=== PATIENT | female | born 1950 | race Caucasian/White ===

== ENCOUNTER 2016-06-21 19:04 | Emergency (ER) | payer MEDICARE, OTHER ==
[~2016-06-21] VITALS: Ht 160 cm; Wt 60.0 kg
[~2016-06-21 19:04] MED LIST: ALPRAZOLAM0.5 M2 PO; CELEXA20 M1 PO; CITALOPRAM40 MG PO; CYMBALTA30 MG PO; FIORICET PO; FLEXERIL PO; INDERAL LA120 MG PO; KEPPRA XR500 MG PO; LEVETIRACETAM500 MG PO; NAPROSYN500 MG PO; NORCO1 TA1 PO; PENICILLN VK500 MG PO; PERCOCET 5/325M1 TAB PO; PRAZOSIN HCL2 M1 PO; PRILOSEC20 MG/CAP PO; PROPRANOLOL HCL80 M1 PO; RESTORIL15 MG PO; TEMAZEPAM30 MG PO; ULTRAM50 M1 PO; VENLAFAXINE HCL75 M1 PO; ZOFRAN4 MG/TAB PO
[2016-06-21 20:34] LABS: URINE BILIRUBIN - DIPSTICK NEGATIVE (NEGATIVE); URINE BLOOD DIPSTICK NEGATIVE (NEGATIVE); URINE CLARITY CLEAR; URINE COLOR YELLOW; URINE GLUCOSE - DIPSTICK NEGATIVE (NEGATIVE); URINE KETONE NEGATIVE (NEGATIVE); URINE LEUK ESTERASE NEGATIVE (NEGATIVE); URINE NITRITE - DIPSTICK NEGATIVE (Negative); URINE PH 6.5 (4.5-8.0); URINE PROTEIN - DIPSTICK NEGATIVE (NEG-TRACE); URINE UROBILINOGEN - DIPSTICK 0.2 E.U./dL (0.2)
[2016-06-21 20:51] LABS: INFLUENZA A NONE DETECTED (NONE DETECT); INFLUENZA B NONE DETECTED (NONE DETECT)
[2016-06-21] MEDS ORDERED: FIORICET PO (20:53)
[2016-06-21 21:04] VITALS: BP 130/87
== END 2016-06-21 21:28 | disposition home or self-care (01) ==
LOC: ED 19:04
PROVIDERS: Emergency Medicine
DX: G43.909 Migraine, unspecified, not intractable, without status migrainosus (principal); B34.9 Viral infection, unspecified; R50.9 Fever, unspecified; R11.0 Nausea

== ENCOUNTER 2016-07-07 08:52 | Emergency (ER) | payer MEDICARE, OTHER ==
[~2016-07-07] VITALS: Ht 160 cm; Wt 58.6 kg
[~2016-07-07 08:52] MED LIST changes: -PRILOSEC20 MG/CAP PO; +PRILOSEC40 MG PO
[2016-07-07] MEDS ORDERED: TRAMADOL HCL50 MG PO (09:06)
[2016-07-07] MEDS ORDERED: FLEXERIL5 MG PO (09:06)
[2016-07-07] MEDS ORDERED: PERCOCET 5/325M1 TAB PO (09:31)
[2016-07-07] MEDS ORDERED: PREDNISONE10 MG PO (09:31)
[2016-07-07 09:45] VITALS: BP 147/75
== END 2016-07-07 10:19 | disposition home or self-care (01) ==
LOC: ED 08:52
DX: M54.42 Lumbago with sciatica, left side (principal)

== ENCOUNTER 2016-07-20 08:10 | Emergency (ER) | payer MEDICARE, OTHER ==
[~2016-07-20] VITALS: Ht 160 cm; Wt 59.1 kg
[~2016-07-20 08:10] MED LIST changes: +FLEXERIL5 MG PO; +PREDNISONE10 MG PO; +PRILOSEC20 MG/CAP PO; -PRILOSEC40 MG PO; +TRAMADOL HCL50 MG PO
[2016-07-20] MEDS ORDERED: ZOFRAN ODT4 MG PO (09:01)
[2016-07-20 09:12] VITALS: BP 147/104
[2016-07-21] MEDS ORDERED: PERCOCET 5/325M1 TAB PO (09:18)
== END 2016-07-20 09:25 | disposition home or self-care (01) ==
LOC: ED 08:10
DX: G43.909 Migraine, unspecified, not intractable, without status migrainosus (principal); R11.0 Nausea

== ENCOUNTER 2016-07-21 08:41 | Emergency (ER) | payer MEDICARE, OTHER ==
[~2016-07-21] VITALS: Ht 160 cm; Wt 59.1 kg
[~2016-07-21 08:41] MED LIST changes: +ZOFRAN ODT4 MG PO
[2016-07-21] MEDS ORDERED: PERCOCET 5/325M1 TAB PO (09:18)
[2016-07-21 09:45] VITALS: BP 118/66
== END 2016-07-21 09:45 | disposition home or self-care (01) ==
LOC: ED 08:41
DX: G40.909 Epilepsy, unspecified, not intractable, without status epilepticus (principal); K21.9 Gastro-esophageal reflux disease without esophagitis; G43.909 Migraine, unspecified, not intractable, without status migrainosus

== ENCOUNTER 2016-08-04 16:02 | Emergency (ER) | payer MEDICARE, OTHER ==
[~2016-08-04] VITALS: Ht 160 cm; Wt 59.0 kg
[2016-08-04] MEDS ORDERED: FLEXERIL PO (17:26)
[2016-08-04] MEDS ORDERED: ULTRAM50 M1 PO (17:26)
[2016-08-04 17:34] VITALS: BP 129/74
== END 2016-08-04 17:34 | disposition home or self-care (01) ==
LOC: ED 16:02
DX: S39.012A Strain of muscle, fascia and tendon of lower back, initial encounter (principal); M54.40 Lumbago with sciatica, unspecified side

== ENCOUNTER 2016-08-09 11:24 | Emergency (ER) | payer MEDICARE, OTHER ==
[~2016-08-09] VITALS: Ht 160 cm; Wt 59.0 kg
[2016-08-09] MEDS ORDERED: PERCOCET 5/325M1 TAB PO (11:59)
[2016-08-09] MEDS ORDERED: PREDNISONE10 MG PO (11:59)
[2016-08-09 12:05] VITALS: BP 121/84
== END 2016-08-09 12:05 | disposition home or self-care (01) ==
LOC: ED 11:24
DX: M54.32 Sciatica, left side (principal); K21.9 Gastro-esophageal reflux disease without esophagitis

== ENCOUNTER 2016-09-20 19:44 | Emergency (ER) | payer MEDICARE, OTHER ==
[~2016-09-20] VITALS: Ht 160 cm; Wt 61.0 kg
[2016-09-20 19:50] VITALS: BP 139/99
[2016-09-20] MEDS ORDERED: AMITRIPTYLIN25 MG PO (20:05)
[2016-09-20] MEDS ORDERED: TRAMADOL HCL50 MG PO (21:30)
[2016-09-20] MEDS ORDERED: PERCOCET 5/325M1 TAB PO (21:44)
[2016-09-20] MEDS ORDERED: ORPHENADRINE C100 M1 PO (21:44)
== END 2016-09-20 22:10 | disposition home or self-care (01) ==
LOC: ED 19:44
DX: M54.2 Cervicalgia (principal); M47.812 Spondylosis without myelopathy or radiculopathy, cervical region

== ENCOUNTER 2016-09-28 10:04 | Emergency (ER) | payer MEDICARE, OTHER ==
[~2016-09-28] VITALS: Ht 160 cm; Wt 59.0 kg
[~2016-09-28 10:04] MED LIST changes: +AMITRIPTYLIN25 MG PO; +ORPHENADRINE C100 M1 PO
[2016-09-28 10:22] VITALS: BP 135/97
[2016-09-28] MEDS ORDERED: FLEXERIL PO (10:40)
[2016-09-28] MEDS ORDERED: PERCOCET 5/325M1 TAB PO (10:40)
[2016-09-28] MEDS ORDERED: EC-NAPROSYN500 MG PO (10:40)
== END 2016-09-28 10:48 | disposition home or self-care (01) ==
LOC: ED 10:04
DX: M47.812 Spondylosis without myelopathy or radiculopathy, cervical region (principal); K21.9 Gastro-esophageal reflux disease without esophagitis; G40.909 Epilepsy, unspecified, not intractable, without status epilepticus

== ENCOUNTER 2016-12-31 16:48 | Emergency (ER) | payer MEDICARE, OTHER ==
[~2016-12-31] VITALS: Ht 160 cm; Wt 56.0 kg
[~2016-12-31 16:48] MED LIST changes: +EC-NAPROSYN500 MG PO
[2016-12-31] MEDS ORDERED: KLONOPIN1 MG PO (17:17)
[2016-12-31] MEDS ORDERED: CYCLOBENZAPR10 MG PO (17:20)
[2016-12-31 18:22] VITALS: BP 118/70
== END 2016-12-31 18:20 | disposition home or self-care (01) ==
LOC: ED 16:48
DX: G89.29 Other chronic pain (principal); M54.5 Low back pain; F11.20 Opioid dependence, uncomplicated

== ENCOUNTER 2017-01-06 19:42 | Emergency (ER) | payer MEDICARE, OTHER ==
[~2017-01-06] VITALS: Ht 160 cm; Wt 62.0 kg
[~2017-01-06 19:42] MED LIST changes: +CYCLOBENZAPR10 MG PO; +KLONOPIN1 MG PO
[2017-01-06] MEDS ORDERED: LORTAB 10-325 M1 TAB PO (20:48)
[2017-01-06 21:05] VITALS: BP 145/87
== END 2017-01-06 21:05 | disposition home or self-care (01) ==
LOC: ED 19:42
DX: S39.012A Strain of muscle, fascia and tendon of lower back, initial encounter (principal); M54.40 Lumbago with sciatica, unspecified side; X58.XXXA Exposure to other specified factors, initial encounter; Y92.009 Unspecified place in unspecified non-institutional (private) residence as the place of occurrence of the external cause

== ENCOUNTER 2017-01-07 06:12 | Emergency (ER) | payer MEDICARE, OTHER ==
[~2017-01-07] VITALS: Ht 160 cm; Wt 62.0 kg
[~2017-01-07 06:12] MED LIST changes: +LORTAB 10-325 M1 TAB PO
[2017-01-07 07:30] LABS: HEMATOCRIT 35.2 % (37.0-47.0); HEMOGLOBIN 11.2 g/dl (12.0-16.0); IMMATURE GRANULOCYTES 0.5 % (0.0-1.0); MEAN CELL VOLUME 94.1 fL CALC (80.0-100.0); MEAN CORPUSCULAR HGB 29.9 pG CALC (26.0-32.0); MEAN CORPUSCULAR HGB CONC 31.8 g/L CALC (32.0-36.0); NEUT# 2.48 thou/uL (2.00-7.15); RED BLOOD COUNT 3.74 mill/uL (4.20-5.60); RED CELL DISTRI WIDTH 13.6 % (11.5-15.5)
[2017-01-07 07:32] LABS: URINE BILIRUBIN - DIPSTICK NEGATIVE (NEGATIVE); URINE BLOOD DIPSTICK NEGATIVE (NEGATIVE); URINE CLARITY CLEAR; URINE COLOR YELLOW; URINE GLUCOSE - DIPSTICK NEGATIVE (NEGATIVE); URINE KETONE NEGATIVE (NEGATIVE); URINE LEUK ESTERASE NEGATIVE (NEGATIVE); URINE NITRITE - DIPSTICK NEGATIVE (Negative); URINE PH 6.5 (4.5-8.0); URINE PROTEIN - DIPSTICK NEGATIVE (NEG-TRACE); URINE UROBILINOGEN - DIPSTICK 0.2 E.U./dL (0.2)
[2017-01-07 07:36] LABS: BARBITURATES POSITIVE (NEGATIVE); COCAINE NEGATIVE (NEGATIVE); METHADONE NEGATIVE (NEGATIVE); TETRAHYDROCANNABIONOL NEGATIVE (NEGATIVE); TRICYLIC ANTIDEPRESSANTS POSITIVE (NEGATIVE)
[2017-01-07 07:37] LABS: OXCYCODONE NEGATIVE (NEGATIVE)
[2017-01-07 07:48] LABS: ALBUMIN 3.5 g/dL (3.2-5.0); ALKALINE PHOSPHATASE 78 u/l (38-126); ANION GAP 14 (6-22 (CALC)); BILIRUBIN, TOTAL 0.3 mg/dL (0.0-1.4); BUN 15 mg/dL (8-23); BUN/CREATININE RATIO 20 (12-20 (CALC)); CALCIUM 9.2 mg/dL (8.4-10.2); CARBON DIOXIDE 27 mmol/l (22-30); CHLORIDE 104 mmol/l (95-108); CREATININE 0.8 mg/dL (0.5-1.0); GFR > 60 ML/MIN (>=60 (CALC)); GFR FOR AFR.AMER. > 60 ML/MIN (>=60 (CALC)); GLUCOSE 84 mg/dL (82-115); POTASSIUM 4.3 mmol/l (3.5-5.1); SGOT/AST 26 u/l (9-36); SGPT/ALT 48 u/l (11-66); SODIUM 140 mmol/l (137-146); TOTAL PROTEIN 6.1 g/dL (6.3-8.2)
[2017-01-07 09:15] VITALS: BP 133/75
== END 2017-01-07 09:40 | disposition home or self-care (01) ==
LOC: ED 06:12
PROVIDERS: Emergency Medicine
DX: R51 Headache (principal); R53.1 Weakness; R53.83 Other fatigue; G40.909 Epilepsy, unspecified, not intractable, without status epilepticus; K21.9 Gastro-esophageal reflux disease without esophagitis

== ENCOUNTER 2017-02-28 12:49 | Emergency (ER) | payer MEDICARE, OTHER ==
[~2017-02-28] VITALS: Ht 160 cm; Wt 61.2 kg
[~2017-02-28 12:49] MED LIST changes: +ASPIRIN ADULT L81 M2; +B121000 MCG; +D3 ADULT1000 UNIT PO; +MELATONIN1 TA3
[2017-02-28] MEDS ORDERED: PREDNISONE50 MG PO (13:20)
[2017-02-28 14:30] VITALS: BP 127/89
== END 2017-02-28 14:30 | disposition home or self-care (01) ==
LOC: ED 12:49
DX: M54.41 Lumbago with sciatica, right side (principal)

== ENCOUNTER 2017-03-02 08:21 | Emergency (ER) | payer MEDICARE, OTHER ==
[~2017-03-02] VITALS: Ht 160 cm; Wt 75.0 kg
[~2017-03-02 08:21] MED LIST changes: +PREDNISONE50 MG PO
[2017-03-02] MEDS ORDERED: PERCOCET 5/325M1 TAB PO (09:29)
[2017-03-02] MEDS ORDERED: PREDNISONE50 MG PO (09:29)
[2017-03-02 09:45] VITALS: BP 120/76
== END 2017-03-02 10:10 | disposition home or self-care (01) ==
LOC: ED 08:21
DX: M54.41 Lumbago with sciatica, right side (principal)

== ENCOUNTER 2017-03-12 07:15 | Day surgery (SDC) | payer MEDICARE, OTHER ==
[~2017-03-12] VITALS: Ht 160 cm; Wt 59.0 kg
[2017-03-12 09:29] VITALS: BP 125/70
[2017-03-12] MEDS ORDERED: TRAMADOL HCL50 MG PO (10:00)
[2017-03-21] MEDS ORDERED: CYMBALTA60 MG PO (11:48)
[2017-03-25] MEDS ORDERED: SINGULAIR10 MG PO (11:10)
== END 2017-03-12 10:18 | disposition home or self-care (01) ==
LOC: ORM 07:15
PROVIDERS: ATTEND Anesthesiology Pain Medicine
PROC: 3E0U33Z Introduction of Anti-inflammatory into Joints, Percutaneous Approach (ICD-10-PCS; principal; 2017-03-12)
PROC: 3E0U3BZ Introduction of Anesthetic Agent into Joints, Percutaneous Approach (ICD-10-PCS; 2017-03-12)
DX: M46.1 Sacroiliitis, not elsewhere classified (principal)

== ENCOUNTER 2017-06-06 21:11 | Emergency (ER) | payer MEDICARE, OTHER ==
[~2017-06-06] VITALS: Ht 160 cm; Wt 66.4 kg
[~2017-06-06 21:11] MED LIST changes: +CYMBALTA60 MG PO; +SINGULAIR10 MG PO
[2017-06-06] MEDS ORDERED: FLEXERIL PO (21:37)
[2017-06-06] MEDS ORDERED: ULTRAM50 M1 PO (21:37)
[2017-06-06 22:10] VITALS: BP 148/85
== END 2017-06-06 22:15 | disposition home or self-care (01) ==
LOC: ED 21:11
DX: G89.29 Other chronic pain (principal); M54.40 Lumbago with sciatica, unspecified side

== ENCOUNTER 2017-06-19 10:09 | Emergency (ER) | payer MEDICARE, OTHER ==
[~2017-06-19] VITALS: Ht 160 cm; Wt 63.0 kg
[2017-06-19] MEDS ORDERED: ULTRAM50 M1 PO (11:20)
[2017-06-19 11:35] VITALS: BP 159/89
[2017-06-24] MEDS ORDERED: XANAX0.25 MG PO (12:44)
[2017-06-24] MEDS ORDERED: KEPPRA500 M2 PO (12:45)
[2017-06-24] MEDS ORDERED: ULTRAM50 M1 PO (13:24)
[2017-06-24] MEDS ORDERED: MEDDOSEPAK PO (13:27)
== END 2017-06-19 11:35 | disposition home or self-care (01) ==
LOC: ED 10:09
DX: G89.29 Other chronic pain (principal); M54.5 Low back pain

== ENCOUNTER 2017-10-01 09:48 | Emergency (ER) | payer MEDICARE, OTHER ==
[~2017-10-01] VITALS: Ht 160 cm; Wt 63.0 kg
[~2017-10-01 09:48] MED LIST changes: +KEPPRA500 M2 PO; +MEDDOSEPAK PO; +XANAX0.25 MG PO
[2017-10-01 10:26] LABS: HEMATOCRIT 39.9 % (37.0-47.0); IMMATURE GRANULOCYTES 0.2 % (0.0-1.0); MEAN CELL VOLUME 90.1 fL CALC (80.0-100.0); MEAN CORPUSCULAR HGB 29.3 pG CALC (26.0-32.0); MEAN CORPUSCULAR HGB CONC 32.6 g/L CALC (32.0-36.0); NEUT# 1.85 thou/uL (2.00-7.15); RED BLOOD COUNT 4.43 mill/uL (4.20-5.60)
[2017-10-01] MEDS ORDERED: KEPPRA500 M2 PO (10:28)
[2017-10-01] MEDS ORDERED: FIORICET PO (10:31)
[2017-10-01 10:41] LABS: ALKALINE PHOSPHATASE 106 u/l (38-126); ANION GAP 14 (6-22 (CALC)); BILIRUBIN, TOTAL 0.3 mg/dL (0.0-1.4); BUN 7 mg/dL (8-23); BUN/CREATININE RATIO 9 (12-20 (CALC)); CARBON DIOXIDE 25 mmol/l (22-30); CHLORIDE 104 mmol/l (95-108); CREATININE 0.8 mg/dL (0.5-1.0); GFR > 60 ML/MIN (>=60 (CALC)); GFR FOR AFR.AMER. > 60 ML/MIN (>=60 (CALC)); POTASSIUM 3.5 mmol/l (3.5-5.1); SGOT/AST 26 u/l (9-36); SGPT/ALT 30 u/l (11-66); SODIUM 139 mmol/l (137-146)
[2017-10-01 10:43] LABS: ALBUMIN 4.5 g/dL (3.2-5.0); TOTAL PROTEIN 7.9 g/dL (6.3-8.2)
[2017-10-01 12:22] LABS: URINE BILIRUBIN - DIPSTICK NEGATIVE (NEGATIVE); URINE BLOOD DIPSTICK NEGATIVE (NEGATIVE); URINE COLOR YELLOW; URINE GLUCOSE - DIPSTICK NEGATIVE (NEGATIVE); URINE KETONE NEGATIVE (NEGATIVE); URINE LEUK ESTERASE NEGATIVE (NEGATIVE); URINE NITRITE - DIPSTICK NEGATIVE (Negative); URINE PH 6.5 (4.5-8.0); URINE PROTEIN - DIPSTICK NEGATIVE (NEG-TRACE); URINE UROBILINOGEN - DIPSTICK 0.2 E.U./dL (0.2)
[2017-10-01 12:29] LABS: URINE CLARITY CLEAR
[2017-10-01 12:30] LABS: BARBITURATES POSITIVE (NEGATIVE); COCAINE NEGATIVE (NEGATIVE); METHADONE NEGATIVE (NEGATIVE); TETRAHYDROCANNABIONOL NEGATIVE (NEGATIVE); TRICYLIC ANTIDEPRESSANTS NEGATIVE (NEGATIVE)
[2017-10-01 12:31] LABS: OXCYCODONE NEGATIVE (NEGATIVE)
[2017-10-01] MEDS ORDERED: ULTRAM50 M1 PO (12:39)
[2017-10-01 12:46] VITALS: BP 161/78
== END 2017-10-01 13:02 | disposition home or self-care (01) ==
LOC: ED 09:48
PROVIDERS: Emergency Medicine
DX: R51 Headache (principal); R07.89 Other chest pain; R06.02 Shortness of breath; R50.9 Fever, unspecified; R11.0 Nausea

== ENCOUNTER 2018-02-27 09:33 | Emergency (ER) | payer MEDICARE, OTHER ==
[~2018-02-27] VITALS: Ht 160 cm; Wt 65.0 kg
[2018-02-27] MEDS ORDERED: BUSPIRONE5 MG PO (10:14)
[2018-02-27 10:38] LABS: URINE BILIRUBIN - DIPSTICK NEGATIVE (NEGATIVE); URINE BLOOD DIPSTICK NEGATIVE (NEGATIVE); URINE CLARITY CLEAR; URINE COLOR YELLOW; URINE GLUCOSE - DIPSTICK NEGATIVE (NEGATIVE); URINE KETONE TRACE mg/dL (NEGATIVE); URINE LEUK ESTERASE NEGATIVE (NEGATIVE); URINE NITRITE - DIPSTICK NEGATIVE (Negative); URINE PROTEIN - DIPSTICK NEGATIVE (NEG-TRACE); URINE UROBILINOGEN - DIPSTICK 0.2 E.U./dL (0.2)
[2018-02-27 11:05] LABS: HEMATOCRIT 40.6 % (37.0-47.0); IMMATURE GRANULOCYTES 0.4 % (0.0-5.0); MEAN CELL VOLUME 89.4 fL CALC (80.0-100.0); MEAN CORPUSCULAR HGB 28.6 pG CALC (26.0-32.0); NEUT# 2.45 thou/uL (2.00-7.15); RED BLOOD COUNT 4.54 mill/uL (4.20-5.60); RED CELL DISTRI WIDTH 15.1 % (11.5-15.5)
[2018-02-27 11:23] LABS: ALBUMIN 4.2 g/dL (3.2-5.0); ALKALINE PHOSPHATASE 105 u/l (38-126); ANION GAP 12 (6-22 (CALC)); BILIRUBIN, TOTAL 0.3 mg/dL (0.0-1.4); BUN 13 mg/dL (8-23); BUN/CREATININE RATIO 17 (12-20 (CALC)); CARBON DIOXIDE 26 mmol/l (22-30); CHLORIDE 106 mmol/l (95-108); CREATININE 0.8 mg/dL (0.5-1.0); GFR > 60 ML/MIN (>=60 (CALC)); GFR FOR AFR.AMER. > 60 ML/MIN (>=60 (CALC)); SGOT/AST 26 u/l (9-36); SODIUM 139 mmol/l (137-146); TOTAL PROTEIN 7.5 g/dL (6.3-8.2)
[2018-02-27 11:27] LABS: POTASSIUM 5.1 mmol/l (3.5-5.1)
[2018-02-27] MEDS ORDERED: MONISTAT1 VA (11:30)
[2018-02-27 11:32] LABS: BARBITURATES POSITIVE (NEGATIVE); COCAINE NEGATIVE (NEGATIVE); METHADONE NEGATIVE (NEGATIVE); OXCYCODONE NEGATIVE (NEGATIVE); TETRAHYDROCANNABIONOL NEGATIVE (NEGATIVE); TRICYLIC ANTIDEPRESSANTS POSITIVE (NEGATIVE)
[2018-02-27 11:58] VITALS: BP 166/76
[2018-02-28] MEDS ORDERED: PERCOGESI1 PO (08:40)
== END 2018-02-27 11:58 | disposition home or self-care (01) ==
LOC: ED 09:33
PROVIDERS: Emergency Medicine
DX: N76.0 Acute vaginitis (principal); Z90.710 Acquired absence of both cervix and uterus

== ENCOUNTER 2018-02-28 08:04 | Emergency (ER) | payer MEDICARE, OTHER ==
[~2018-02-28] VITALS: Ht 160 cm; Wt 63.0 kg
[~2018-02-28 08:04] MED LIST changes: +BUSPIRONE5 MG PO; +MONISTAT1 VA
[2018-02-28] MEDS ORDERED: PERCOGESI1 PO (08:40)
[2018-02-28 08:53] VITALS: BP 145/98
== END 2018-02-28 09:08 | disposition home or self-care (01) ==
LOC: ED 08:04
DX: R10.2 Pelvic and perineal pain (principal); M54.30 Sciatica, unspecified side; F32.9 Major depressive disorder, single episode, unspecified

== ENCOUNTER 2018-04-17 16:57 | Observation (INO) | payer MEDICARE, OTHER ==
[2018-04-17] VITALS (7 sets, daily range): BP systolic 102–175; BP diastolic 57–77
[~2018-04-17] VITALS: Ht 160 cm; Wt 68.9 kg
[~2018-04-17 16:57] MED LIST changes: +PERCOGESI1 PO
--- NOTE | 2018-04-17 17:00 | NUR ---
PT TO ROOM VIA EMS STRETCHER. PT A&O X3, SPEECH IS SLURRED.
--- NOTE | 2018-04-17 17:02 | NUR ---
PT IS UNSURE OF AMOUNT OF HUSBANDS KLONAPIN THAT WAS TAKEN BUT SHE BELIEVES THAT SHE TOOK 14. PT ALSO TOOK UNKNOWN AMOUNT OF 25 MG AMITRIPTYLIN. PT KEEPS CHANGIN THE AMOUNT IN PILLS FROM 10 TO 15. NOTIFIED.
--- NOTE | 2018-04-17 17:04 | NUR ---
POISON CONTROL CONTACTED. SUPPORTIVE CARE SUGGESTED AND TO MONITOR FOR SEIZURES. REPEAT EKG AFTER 6 HOURS
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
[2018-04-17 18:21] LABS: HEMATOCRIT 39.2 % (37.0-47.0); HEMOGLOBIN 12.7 g/dl (12.0-16.0); IMMATURE GRANULOCYTES 0.5 % (0.0-5.0); MEAN CELL VOLUME 88.5 fL CALC (80.0-100.0); MEAN CORPUSCULAR HGB 28.7 pG CALC (26.0-32.0); MEAN CORPUSCULAR HGB CONC 32.4 g/L CALC (32.0-36.0); NEUT# 3.68 thou/uL (2.00-7.15); RED BLOOD COUNT 4.43 mill/uL (4.20-5.60); RED CELL DISTRI WIDTH 15.2 % (11.5-15.5)
[2018-04-17 18:27] LABS: ALBUMIN 4.5 g/dL (3.2-5.0); ALKALINE PHOSPHATASE 102 u/l (38-126); ANION GAP 17 (6-22 (CALC)); BILIRUBIN, TOTAL 0.3 mg/dL (0.0-1.4); BUN 14 mg/dL (8-23); BUN/CREATININE RATIO 18 (12-20 (CALC)); CARBON DIOXIDE 24 mmol/l (22-30); CHLORIDE 101 mmol/l (95-108); CREATININE 0.8 mg/dL (0.5-1.0); GFR > 60 ML/MIN (>=60 (CALC)); GFR FOR AFR.AMER. > 60 ML/MIN (>=60 (CALC)); MAGNESIUM 1.9 mg/dL (1.6-2.3); POTASSIUM 4.9 mmol/l (3.5-5.1); SGOT/AST 27 u/l (9-36); SODIUM 137 mmol/l (137-146); TOTAL PROTEIN 7.8 g/dL (6.3-8.2)
[2018-04-17 18:33] LABS: URINE BILIRUBIN - DIPSTICK NEGATIVE (NEGATIVE); URINE BLOOD DIPSTICK NEGATIVE (NEGATIVE); URINE COLOR YELLOW; URINE GLUCOSE - DIPSTICK NEGATIVE (NEGATIVE); URINE KETONE NEGATIVE (NEGATIVE); URINE LEUK ESTERASE NEGATIVE (NEGATIVE); URINE NITRITE - DIPSTICK NEGATIVE (Negative); URINE PROTEIN - DIPSTICK NEGATIVE (NEG-TRACE); URINE SPECIFIC GRAVITY 1.015; URINE UROBILINOGEN - DIPSTICK 0.2 E.U./dL (0.2)
[2018-04-17 18:41] LABS: BARBITURATES NEGATIVE (NEGATIVE); COCAINE NEGATIVE (NEGATIVE); METHADONE NEGATIVE (NEGATIVE); OXCYCODONE NEGATIVE (NEGATIVE); TETRAHYDROCANNABIONOL NEGATIVE (NEGATIVE); TRICYLIC ANTIDEPRESSANTS POSITIVE (NEGATIVE)
[2018-04-17 18:48] LABS: ETHYL ALCOHOL 0 mg/dl (0-30)
--- NOTE | 2018-04-17 19:00 | NUR ---
PT NOW WITH SITTER AT BEDSIDE. NO AGRESSIVE BEHAVIOR.
[2018-04-17] MEDS ORDERED: AMITRIPTYLIN25 MG PO (19:18)
[2018-04-17] MEDS ORDERED: TYLENOL 500MG TAB PO (19:21)
--- NOTE | 2018-04-17 20:10 | NUR ---
PT TO ICU BED 2 VIA STRETCHER ACCOMPANIED BY ER STAFF AND MACHINIST SITTER. PT ABLE TO AMBULATE TO BED. PT IS ALERT AND ORIENTED X3. ADMISSION ASSESSMENT COMPLETED AT THIS TIME. QUESTIONED PT TO IF SHE UNDERSTOOD WHY SHE WAS HERE. PT STATES THAT SHE HAS BEEN HAVING ABDOMINAL PAIN SINCE LAST NIGHT. EXPLAINED TO PT THAT SHE IS A JOE ACT AND IS ADMIOTTED DUE TO OVERDOSE. PT DENIES BEING SUICIDAL. QUESTIONED PT ABOUT MEDICATIONS TAKEN AT HOME. PT STORIED ARE VERY INCONSISTENT AND SEEM TO CHANGE EACH TIME. PT REQUESTED PAIN MEDICATION. EXPLAINED TO PT THAT WITH THE AMOUNT MEDICATIONS SHE HAD TAKEN AT HOME SHE WOULD NOT RECEIVE ADDITIONAL MEDS UNTIL CLEARED. EXPLAINED THAT SHE DOES HAVE MEDICATIONS FOR SYMPTOMS OF WITHDRAWL. PT IMMEADIATELY REQUESTING THOSE MEDICATIONS. EXPLAINED TO PT THAT WHEN SYMPTOMS OF WITHDRAWL OCCUR SHE WILL BE MEDICATED PER THE MD ORDERS. NOTED CONTINUED SLURRED SPEECH THROUGHOUT ADMISSION ASSESSMENT. ALL BELONGINGS BEING STORED AT NURSING DESK. EXPLAINED PROCEDURE THAT WITH BEING A JOE ACT SHE WILL HAVE A GOWN AND NO PERSONAL EFFECTS. MACHINIST SITTER IN ROOM 1:1. CALL LIGHT SYSTEM EXPLAINED TO PT AND PT VERBALIZED UNDERSTANDING. CALL LIGHT IN REACH. WILL CONTINUE TO MONITOR
--- NOTE | 2018-04-17 20:13 | NUR ---
REPORT PROVIDED TO CARMEN DAMIAN, PT TAKEN TO ICU-2 ACCOMPANIED BY CIRO CABAN.
--- NOTE | 2018-04-17 20:45 | NUR ---
PT ASSITED TO BSC TO VOID. SITTER REMAINS IN ROOM WITH PATIENT.
--- NOTE | 2018-04-17 21:34 | NUR ---
MONI FROM POISON CONTROL CALLED FOR PT UPDATE. ELVIRATE PROVIDED
--- NOTE | 2018-04-17 22:04 | NUR ---
PT RESTING IN BED WTIH EYES CLOSED. RESP ARE EVEN AND UNLABORED. NO DISTRESS NOTED. PT REMIANS SR ON MONITOR. SITTER IN ROOM WITH PATIENT. CALL LIGHT IN REACH WILL CONTINUE TO MONITOR.
--- NOTE | 2018-04-17 23:00 | NUR ---
RT INTO COMPLETE EKG PER POISON CONTROL REQUEST. EKG WNL.
--- NOTE | 2018-04-17 23:13 | NUR ---
PT MEDICATED WITH MN LIBRIUM WHILE AWAKE.
[2018-04-18] VITALS (24 sets, daily range): BP systolic 91–154; BP diastolic 52–87
--- NOTE | 2018-04-18 01:00 | NUR ---
PT RESTING IN BED WITH EYES CLOSED. RESP ARE EVEN AND UNLABLORED. PT REMAINS SR ON MONITOR. SITTER AT BEDISDE. WILL CONTINUE TO MONITOR.
--- NOTE | 2018-04-18 02:54 | NUR ---
PT RESTING IN BED WITH EYES CLOSED. RESP ARE EVEN AND UNLABORED. NO DISTRESS NOTED. PT REAMINS SR ON MONITOR. CALL LIGHT IN REACH. WILL CONITNUE TO STACEY. SITTER AT BEDSIDE
--- NOTE | 2018-04-18 05:00 | NUR ---
LAB AT BEDSIDE COLLECTING AM LBAS
[2018-04-18 05:27] LABS: HEMATOCRIT 38.4 % (37.0-47.0); HEMOGLOBIN 12.4 g/dl (12.0-16.0); IMMATURE GRANULOCYTES 0.5 % (0.0-5.0); MEAN CELL VOLUME 88.7 fL CALC (80.0-100.0); MEAN CORPUSCULAR HGB 28.6 pG CALC (26.0-32.0); MEAN CORPUSCULAR HGB CONC 32.3 g/L CALC (32.0-36.0); NEUT# 2.81 thou/uL (2.00-7.15); RED BLOOD COUNT 4.33 mill/uL (4.20-5.60)
[2018-04-18 05:58] LABS: ALBUMIN 3.9 g/dL (3.2-5.0); ALKALINE PHOSPHATASE 93 u/l (38-126); AMYLASE 41 u/l (30-110); ANION GAP 13 (6-22 (CALC)); BILIRUBIN, TOTAL 0.4 mg/dL (0.0-1.4); BUN 10 mg/dL (8-23); BUN/CREATININE RATIO 14 (12-20 (CALC)); CARBON DIOXIDE 27 mmol/l (22-30); CHLORIDE 106 mmol/l (95-108); CREATININE 0.8 mg/dL (0.5-1.0); GFR > 60 ML/MIN (>=60 (CALC)); GFR FOR AFR.AMER. > 60 ML/MIN (>=60 (CALC)); LIPASE 26 u/l (23-300); POTASSIUM 4.5 mmol/l (3.5-5.1); SGOT/AST 27 u/l (9-36); SODIUM 141 mmol/l (137-146); TOTAL PROTEIN 6.8 g/dL (6.3-8.2)
--- NOTE | 2018-04-18 06:10 | NUR ---
PT NOW REQUESTING MEDICATION FOR A HEADACHE. EXPLAINED TO PT THAT SHE HAD OVERDOSED LAST NIGHT AND IS JOE ACTED. PT STATES WELL I WASNT TRYING TO KILL MYSELF I ONLY TOOK 10 KLONOPIN. EXPLAINED TO PT THAT SHE IS NOT PRESCRIBED KLONOPIN AND THAT AT 0.5MG A PIECE THAT IS STILL 5MG OF KLONOPIN. WHICH IS STILL AN OVERDOSE. EXPLAINED TO PT THAT SHE WOULD NEED TO BE EVALUATED BY MD. SPEECH IS NOW CLEAR. SITTER AT BEDSIDE 1:1. PT HAS VERY ONCONSISTENT STORIES AND SEEMS TO BE SOMEWHAT MANIPULATIVE. WILL CONTINUE TO MONITOR.
--- NOTE | 2018-04-18 06:50 | NUR ---
REPORT RECVD FROM NATI MORALES AT START OF SHIFT.
--- NOTE | 2018-04-18 07:18 | NUR ---
PT C/O HEADACHE. OFFERED ICE PACK, PT REFUSED. OFFERED TO CLOSE BLINDS AND TURN DOWN AIR, PT REFUSED. PT VERY TALKATIVE TO SITTER. NO S/S OF DISTRESS. CALLBELL W/IN REACH. SITTER @BEDSIDE. NSR ON TELE. PT A&Ox3.
--- NOTE | 2018-04-18 07:24 | NUR ---
PT SITTING UP IN BED, EATING BREAKFAST. PT VERY TALKATIVE WITH SITTER.
--- NOTE | 2018-04-18 08:33 | NUR ---
DIETARY @BEDSIDE RE: MEAL PREFERENCES.
--- NOTE | 2018-04-18 09:42 | NUR ---
DISCUSSED PLAN FOR TODAY AND WHAT HAPPENS AFTER SHE IS MEDICALLY CLEARED. PT CONCERNED ABOUT NOT TAKING HER HOME MEDS. PT APPEARS HAPPY, TALKING ABOUT MOVIES & PERSONAL STORIES WITH STAFF. PT DENIES WANTING TO HURT HERSELF, STATING SHE WAS "JUST TRYING TO GET SOMETHING TO TAKE THE ANXIETY AWAY."
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
--- NOTE | 2018-04-18 11:00 | NUR ---
FRIEND, RJ, CAME BY TO GIVE PT AN (OPEN BOTTLE OF WATER) & A TOILETRY BAG. ITEMS TAKEN FROM FRIEND IN WAITING ROOM AND PLACED IN PTS BELONGING BAG AT NURSES DESK. PT GIVEN JUICES AND BOTTLED WATER FROM OUR NOURISHMENT ROOM.
--- NOTE | 2018-04-18 11:41 | NUR ---
PT SITTING UP IN BED, EATING LUNCH. SPOKE TO ON PHONE EARLIER TO GATHER ITEMS SHE NEEDS IN THE HOSPITAL.
--- NOTE | 2018-04-18 12:08 | NUR ---
BROUGHT PTS MEDICATION & READING GLASSES & MAGAZINES. MEDICATION SENT TO PHARMACY, OTHER ITEMS CHECKED FOR CONTRABAND BEFORE GIVEN TO PT.
--- NOTE | 2018-04-18 12:19 | NUR ---
PT UP TO BSC FOR URINATION. 200cc CLEAR YELLOW URINE OUTPUT.
--- NOTE | 2018-04-18 12:29 | NUR ---
PT UP TO BSC FOR BM.
--- NOTE | 2018-04-18 13:15 | NUR ---
PT UP TO BSC FOR BM. PT STATES SHE FEELS MUCH BETTER AFTER THE ATIVAN.
--- NOTE | 2018-04-18 14:09 | NUR ---
PT SITTING ON THE BSC AGAIN FOR BM. JUAN MANUELTER @BEDSIDE.
--- NOTE | 2018-04-18 15:12 | NUR ---
PT SLEEPING. NO S/S OF DISTRESS.
--- NOTE | 2018-04-18 15:31 | NUR ---
PT OVERHEARD SNORING FROM ICU BED. HR IN LOW 90'S WITH OCCASSIONAL PVC. BREATHING EVEN/UNLABORED. SITTER STILL @BEDSIDE. NO NEW NEEDS/CONCERNS AT THIS TIME. WILL CONTINUE TO MONITOR.
--- NOTE | 2018-04-18 16:24 | NUR ---
PT FREQUENTLY ASKING WHEN SHE CAN HAVE HER NEXT LIBRIUM & ATIVAN. TIME WRITTEN ON [employer] COMMUNICATION BOARD. PT DENIES ANY ALCOHOL OR RECREATIONAL DRUG USE BUT BEHAVES LIKE SHE DOES. PT ALSO APPEARS NERVOUS.
--- NOTE | 2018-04-18 17:25 | NUR ---
PT SITTING UP IN CHAIR, EATING DINNER, READING MAGAZINES.
--- NOTE | 2018-04-18 18:00 | NUR ---
PER DORIS DAMIAN, DR CASTRO CALLED TO SAY PTS DC CAN BE DC'D TONIGHT.
--- NOTE | 2018-04-18 18:55 | NUR ---
REPORT FROM Hilary HENDERSON RN. ASSUMED PT. CARE.
--- NOTE | 2018-04-18 20:02 | NUR ---
PT. FOUND AWAKE, ALERT, ORIENTED X 3. SKIN WARM AND DRY. TEMP 100.0 TYMPANIC. DENIES COMPLAINTS OF PAIN AT THIS TIME. RESPS EVEN AND UNLABORED. LUNGS CLEAR. S1/S2 NOTED. BOWEL SOUNDS PRESENT IN ALL QUADS. PULSES INTACT. PT. VOICES NO SUICIDAL TENDENCIES AT THIS TIME. UPDATED ON PLAN OF CARE. PT. STATES SHE WOULD LIKE TO BE TRANSFERRED TO THE [facility] IN [place] UPON BEING MEDICALLY CLEARED. PT. INFORMED THAT OFTEN TIMES FACILITIES THAT ARE OUT OF COUNTY AND MULTIPLE COUNTIES AWAY ARE DIFFICULT TO PLACE PATIENTS INTO. PT. VERBALIZES UNDERSTANDING. STATES SHE WISHES TO NO GO TO [facility] IN [place].
--- NOTE | 2018-04-18 21:11 | NUR ---
PT. MEDICATED PER PHYSICIAN ORDERS. DENIES OTHER COMPLAINTS OR NEEDS. REMAINS STABLE AND APPROPRIATE. SITTER REMAINS AT BEDSIDE AT THIS TIME.
--- NOTE | 2018-04-18 22:49 | NUR ---
PT. UP TO BEDSIDE COMMODE. AMBULATORY WITH STEADY GAIT. NO DISTRESS NOTED. SITTER REMAINS AT BEDSIDE AT THIS TIME. WILL CONTINUE TO MONITOR.
[2018-04-19] VITALS (12 sets, daily range): BP systolic 119–158; BP diastolic 52–81
--- NOTE | 2018-04-19 00:15 | NUR ---
PT. REMAINS EASILY AROUSABLE TO LIGHT VERBAL STIMULI. PT. C/O SINUS CONGESTION AND STATES SHE HAS BEEN TAKING BENADRYL AT HOME FOR SAME ALLERGIES/URI SX. MEDICATED PER PHYSICIAN ORDERS. WILL CONTINUE TO CLOSELY MONITOR. CALL LIGHT WITHIN REACH. SITTER AT BEDSIDE.
--- NOTE | 2018-04-19 02:26 | NUR ---
PT. RESTING IN BED WITH EYES CLOSED. RESPS EVEN AND UNLABORED. VOICES NO COMPLAINTS OR NEEDS AT THIS TIME. CALL LIGHT REMAINS WITHIN REACH. WILL CONTINUE TO MONITOR.
--- NOTE | 2018-04-19 04:22 | NUR ---
PT. RESTING IN BED WITH EYES CLOSED. SNORING RESPIRATIONS NOTED. BP/HR REMAINS STABLE. SITTER REMAINS AT BEDSIDE AT THIS TIME. CALL LIGHT REMAINS WITHIN REACH. WILL CONTINUE TO MONITOR.
--- NOTE | 2018-04-19 06:05 | NUR ---
PT. REMAINS EASILY AROUSABLE. AWAKE, ALERT, ORIENTED X 3. SITTER REMAINS AT BEDSIDE AT THIS TIME. CALL LIGHT REMAINS WITHIN REACH. PT. REMAINS STABLE IN NO DISTRESS.
--- NOTE | 2018-04-19 07:04 | NUR ---
RECVD REPORT FROM NATI WRIGHT @START OF SHIFT.
--- NOTE | 2018-04-19 07:35 | NUR ---
PT SITTING UP ON SIDE OF BED, EATING BREAKFAST & TALKING WITH NATI COATS/SITTER. BREATHING EVEN/UNLABORED, LUNG SOUNDS CLEAR. ABD SOFT/NONTENDER, ACTIVE BS. STRONG PULSES x4. SPEECH CLEAR. A&Ox4.
--- NOTE | 2018-04-19 07:36 | NUR ---
PT SITTING UP IN BED, EATING BREAKFAST TRAY, ALERT/ORIENTED X3, TALKING AND SMILING AT STAFF. NO ANXIETY OR ANGER NOTED AT THIS TIME.
--- NOTE | 2018-04-19 08:21 | NUR ---
UP TO BEDSIDE COMMODE, 100CC OUTPUT AT THIS TIME. PT STEADY ON FEET,BRUSHED TEETH AND GOT BACK ONTO STRETCHER WITH NO NEED FOR ASSISTANCE
--- NOTE | 2018-04-19 09:36 | NUR ---
PT SITTING UP ON CHAIR BESIDE BED. VITAL SIGNS REMAIN STABLE. NO AGRESSION OR ANGER NOTED. PT APPEARS CALM AND ORIENTED
--- NOTE | 2018-04-19 09:49 | NUR ---
PT REQUESTED A CHANNEL GUIDE SO SHE CAN WATCH FOOTBALL LATER. SITTER STILL @BEDSIDE.
--- NOTE | 2018-04-19 10:33 | NUR ---
Dr lieberman medically cleared pt. Beau, case management, notified that pt requests to go back to the [facility] in [place] (where she was a recent pt). Old ekg from 08/09/2015 shows history of pvc's.
--- NOTE | 2018-04-19 10:47 | NUR ---
COMPLETED ADULT MEDICAL CLEARANCE CHECKLIST FOR CASE MANAGEMENT. YURY NOTIFIED.
--- NOTE | 2018-04-19 11:03 | NUR ---
CALLED CASE MANAGEMENT FOR ASSISTANCE ON HOW TO COMPLETE FORMS LEFT FOR ME BY THEM. THEY WERE UNABLE TO ANSWER QUESTIONS. WILL INVESTIGATE FURTHER.
--- NOTE | 2018-04-19 11:12 | NUR ---
PT CONCERNED THAT SHE WON'T GET A CHANCE TO TALK TO THE DOCTOR. SHE IS AWARE HE IS ON THE UNIT AND WANTS TO TALK TO HIM.
--- NOTE | 2018-04-19 11:15 | NUR ---
DR IRIZARRY @BEDSIDE WITH PT, ASSESSING PT, ANSWERING QUESTIONS AND DISCUSSING POC.
--- NOTE | 2018-04-19 11:22 | NUR ---
PT GIVEN LUNCH TRAY. PT VERY ANXIOUS/CONCERNED BC SOMEONE TOLD HER SHE WAS GOING TO [facility] AND SHE PREFERS TO GO TO [facility] IN [facility]. EDUCATED PT ON PLACEMENT PROCESS AND TOLD HER WE WILL KEEP HER INFORMED AND LET HER KNOW WHEN A TREATMENT PLACE ACCEPTS HER. PT THANKED STAFF FOR THE WONDERFUL CARE SHE IS RECVING HERE.
--- NOTE | 2018-04-19 11:32 | NUR ---
PT ADVISED OF POSSIBLE TRANSFER TO FACILITY. SITTING UP ON SIDE OF BED EATING LUNCH
--- NOTE | 2018-04-19 13:43 | NUR ---
PT LAYING IN BED, WATCHING FOOTBALL. CALLBELL W/IN REACH. SITTER STILL @BEDSIDE.
--- NOTE | 2018-04-19 14:25 | NUR ---
PT UP TO BATHROOM, APPROXIMATELY 175 CC OUTPUT. TOTAL URINE OUTPUT SINCE 7 AM IS 400CC
--- NOTE | 2018-04-19 14:27 | NUR ---
PT SITTING UP IN CHAIR WATCHING FOOTBALL GAME. CALM,SMILING,AND TALKATIVE
--- NOTE | 2018-04-19 15:02 | NUR ---
PTS BELONGINGS PACKED UP. PT REQUESTED TO WEAR ROBE TO NEW FACILITY. ONLY OTHER CLOTHES ARE SHORTS THAT SHE CHOOSE NOT TO WEAR. MEDICATION PLACED IN ENVELOPE WITH PAPERWORK. PT ALLOWED TO USE PHONE BEFORE SHE LEFT. PT CALLED HER WHO REQUESTED TO SPEAK TO ME; CONCERNED BC HE WANTED PT TO GO TO U. (PT STATED EARLIER SHE DID NOT WANT TO GO TO [facility]). STATED HE CALLED [facility] AND THEY HAD BEDS SO THATS WHERE SHE SHOULD GO. TOLD PT THAT IT WAS MY UNDERSTANDING THAT [facility] DID NOT ACCEPT HER INSURANCE AND WE WERE TRYING TO GET HER THE BEST HELP WE COULD WITHOUT CAUSING ANY MORE PROBLEMS. PT ADVISED WE WERE SENDING OVER ALL HER INFORMATION WHEN SHE VOICED CONCERNS OVER NOT HAVING HER SOCIAL SECURITY CARD. PT NOW STATES SHE DOES NOT WANT TO GO TO [place]. IV DC'D, TIP INTACT & DRESSING APPLIED. SITTER DISMISSED FROM PTS CARE WHEN DCSO ARRIVED TO ROOM. PT AMBULATED OUT OF ICU WITH STEADY GAIT IN STABLE CONDITION. SPEECH CLEAR. A&O.
== END 2018-04-19 15:02 ==
LOC: ED 16:57 → ED-I 18:30 → ED 19:11 → ICU 19:12
PROVIDERS: Emergency Medicine; ADMIT Internal Medicine Nephrology; ATTEND Internal Medicine Nephrology
DX: T43.012A Poisoning by tricyclic antidepressants, intentional self-harm, initial encounter (principal); I49.3 Ventricular premature depolarization; F32.9 Major depressive disorder, single episode, unspecified; G40.909 Epilepsy, unspecified, not intractable, without status epilepticus; G89.29 Other chronic pain; M54.9 Dorsalgia, unspecified; R51 Headache; F41.9 Anxiety disorder, unspecified
CPT/HCPCS: J1650; J2060

== ENCOUNTER 2018-05-15 15:09 | Emergency (ER) | payer MEDICARE, OTHER ==
[~2018-05-15] VITALS: Ht 160 cm; Wt 66.4 kg
[~2018-05-15 15:09] MED LIST changes: +TYLENOL 500MG TAB PO
[2018-05-15] MEDS ORDERED: FIORICET PO (17:20)
[2018-05-15 17:21] VITALS: BP 154/88
== END 2018-05-15 17:27 | disposition home or self-care (01) ==
LOC: ED 15:09
DX: G43.909 Migraine, unspecified, not intractable, without status migrainosus (principal)
CPT/HCPCS: J0131

== ENCOUNTER 2018-05-16 01:52 | Emergency (ER) | payer MEDICARE, OTHER ==
[~2018-05-16] VITALS: Ht 160 cm; Wt 66.3 kg
[2018-05-16 02:41] LABS: HEMATOCRIT 37.1 % (37.0-47.0); HEMOGLOBIN 11.8 g/dl (12.0-16.0); IMMATURE GRANULOCYTES 0.3 % (0.0-5.0); MEAN CELL VOLUME 90.3 fL CALC (80.0-100.0); MEAN CORPUSCULAR HGB 28.7 pG CALC (26.0-32.0); MEAN CORPUSCULAR HGB CONC 31.8 g/L CALC (32.0-36.0); NEUT# 4.92 thou/uL (2.00-7.15); RED BLOOD COUNT 4.11 mill/uL (4.20-5.60); RED CELL DISTRI WIDTH 14.3 % (11.5-15.5)
[2018-05-16 02:55] LABS: ALBUMIN 4.3 g/dL (3.2-5.0); ALKALINE PHOSPHATASE 80 u/l (38-126); ANION GAP 15 (6-22 (CALC)); BILIRUBIN, TOTAL 0.2 mg/dL (0.0-1.4); BUN 13 mg/dL (8-23); BUN/CREATININE RATIO 21 (12-20 (CALC)); CARBON DIOXIDE 23 mmol/l (22-30); CHLORIDE 102 mmol/l (95-108); CREATININE 0.6 mg/dL (0.5-1.0); GFR > 60 ML/MIN (>=60 (CALC)); GFR FOR AFR.AMER. > 60 ML/MIN (>=60 (CALC)); POTASSIUM 4.4 mmol/l (3.5-5.1); SGOT/AST 23 u/l (9-36); SODIUM 136 mmol/l (137-146); TOTAL PROTEIN 7.1 g/dL (6.3-8.2)
[2018-05-16 03:52] LABS: URINE BILIRUBIN - DIPSTICK NEGATIVE (NEGATIVE); URINE BLOOD DIPSTICK TRACE-LYSED (NEGATIVE); URINE COLOR YELLOW; URINE GLUCOSE - DIPSTICK NEGATIVE (NEGATIVE); URINE KETONE NEGATIVE (NEGATIVE); URINE LEUK ESTERASE NEGATIVE (NEGATIVE); URINE NITRITE - DIPSTICK NEGATIVE (Negative); URINE PROTEIN - DIPSTICK NEGATIVE (NEG-TRACE); URINE SPECIFIC GRAVITY 1.015; URINE UROBILINOGEN - DIPSTICK 0.2 E.U./dL (0.2)
[2018-05-16 03:57] LABS: BARBITURATES POSITIVE (NEGATIVE); COCAINE NEGATIVE (NEGATIVE); METHADONE NEGATIVE (NEGATIVE); OXCYCODONE NEGATIVE (NEGATIVE); TETRAHYDROCANNABIONOL NEGATIVE (NEGATIVE); TRICYLIC ANTIDEPRESSANTS NEGATIVE (NEGATIVE)
[2018-05-16 05:35] VITALS: BP 150/74
== END 2018-05-16 05:35 | disposition home or self-care (01) ==
LOC: ED 01:52
PROVIDERS: Emergency Medicine
DX: R51 Headache (principal); F32.9 Major depressive disorder, single episode, unspecified; M54.30 Sciatica, unspecified side
CPT/HCPCS: J0131

== ENCOUNTER 2018-05-29 08:48 | Emergency (ER) | payer MEDICARE, OTHER ==
[~2018-05-29] VITALS: Ht 160 cm; Wt 63.6 kg
[2018-05-29] MEDS ORDERED: CYMBALTA30 MG PO (09:15)
[2018-05-29] MEDS ORDERED: MEDDOSEPAK PO (10:36)
[2018-05-29] MEDS ORDERED: ULTRAM50 M1 PO (10:36)
[2018-05-29 10:56] VITALS: BP 124/92
== END 2018-05-29 11:32 | disposition home or self-care (01) ==
LOC: ED 08:48
DX: M25.561 Pain in right knee (principal); G89.29 Other chronic pain; F32.9 Major depressive disorder, single episode, unspecified; M54.30 Sciatica, unspecified side; M79.89 Other specified soft tissue disorders

== ENCOUNTER → 2018-06-26 | Outpatient (REF) | payer MEDICARE, OTHER | END | disposition home or self-care (01) | LOC: MRI 06-23 10:30 | PROVIDERS: ATTEND Orthopaedic Surgery | DX: M25.561 Pain in right knee (principal) ==

== ENCOUNTER 2019-07-05 | Emergency (ER) | payer MEDICARE, OTHER ==
[2019-07-05] MEDS ORDERED: GENTAMICIN SULF5 ML OU ×2 (10:03)
== END 2019-07-05 10:15 | disposition home or self-care (01) ==
DX: S05.02XA Injury of conjunctiva and corneal abrasion without foreign body, left eye, initial encounter (principal); H10.9 Unspecified conjunctivitis; X58.XXXA Exposure to other specified factors, initial encounter

== ENCOUNTER 2019-07-10 | Inpatient (IN) | payer MEDICARE, OTHER ==
[2019-07-10] VITALS (13 sets, daily range): BP systolic 106–219; BP diastolic 45–112
[~2019-07-10] MED LIST changes: +GENTAMICIN SULF5 ML OU
--- NOTE | 2019-07-10 05:11 | NUR ---
BY WC TO ROOM
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
[2019-07-10 06:14] LABS: URINE BLOOD DIPSTICK NEGATIVE (NEGATIVE); URINE COLOR YELLOW; URINE GLUCOSE - DIPSTICK NEGATIVE (NEGATIVE); URINE KETONE TRACE mg/dL (NEGATIVE); URINE LEUK ESTERASE NEGATIVE (NEGATIVE); URINE NITRITE - DIPSTICK NEGATIVE (Negative); URINE PH 5.5 (4.5-8.0); URINE PROTEIN - DIPSTICK NEGATIVE (NEG-TRACE); URINE SPECIFIC GRAVITY 1.025; URINE UROBILINOGEN - DIPSTICK 0.2 E.U./dL (0.2)
[2019-07-10 06:15] LABS: HEMATOCRIT 44.2 % (37.0-47.0); HEMOGLOBIN 14.1 g/dl (12.0-16.0); IMMATURE GRANULOCYTES 0.6 % (0.0-5.0); MEAN CELL VOLUME 89.8 fL CALC (80.0-100.0); MEAN CORPUSCULAR HGB 28.7 pG CALC (26.0-32.0); MEAN CORPUSCULAR HGB CONC 31.9 g/dL CAL (32.0-36.0); NEUT# 2.94 thou/uL (2.00-7.15); RED BLOOD COUNT 4.92 mill/uL (4.20-5.60)
[2019-07-10 06:21] LABS: URINE BILIRUBIN - DIPSTICK NEGATIVE (NEGATIVE)
[2019-07-10 06:22] LABS: BARBITURATES POSITIVE (NEGATIVE); COCAINE NEGATIVE (NEGATIVE); METHADONE NEGATIVE (NEGATIVE); OXCYCODONE POSITIVE (NEGATIVE); TETRAHYDROCANNABIONOL NEGATIVE (NEGATIVE); TRICYLIC ANTIDEPRESSANTS NEGATIVE (NEGATIVE)
--- NOTE | 2019-07-10 06:30 | NUR ---
REPORT TO VICTOR M DAMIAN.
[2019-07-10 06:34] LABS: ALBUMIN 4.8 g/dL (3.2-5.0); ALKALINE PHOSPHATASE 106 u/l (38-126); BUN 9 mg/dL (8-23); BUN/CREATININE RATIO 10 (12-20 (CALC)); CHLORIDE 105 mmol/l (95-108); CREATININE 0.9 mg/dL (0.5-1.0); ETHYL ALCOHOL 0 mg/dl (0-30); GFR > 60 ML/MIN (>=60 (CALC)); GFR FOR AFR.AMER. > 60 ML/MIN (>=60 (CALC)); POTASSIUM 3.7 mmol/l (3.5-5.1); SGOT/AST 23 u/l (9-36); SODIUM 138 mmol/l (137-146); TOTAL PROTEIN 8.1 g/dL (6.3-8.2)
[2019-07-10 06:42] LABS: ANION GAP 16 (6-22 (CALC)); BILIRUBIN, TOTAL 0.6 mg/dL (0.0-1.4); CARBON DIOXIDE 21 mmol/l (22-30)
[2019-07-10 07:16] LABS: INTERNATIONAL NORMALIZED RATIO 1.1 RATIO (0.7-1.3); PROTHROMBIN TIME 11.2 SECONDS (9.0-12.5)
--- NOTE | 2019-07-10 07:16 | NUR ---
PT RETURNED FROM RADIOLOGY AT THIS TIME; PT C/O SOB DURING LAYING FLAT FOR CT; O2 SATURATION 100% ON RA; RESP EVEN/UNLABORED; MONITOROING DEVICES REAPPLIED; VSS; PT UPDATED ON POC AND MEDICATIONS; PT STATES SHE DOESN'T WANT HER TO HAVE ANY INFORMATION REGARDING HER HEALTH; PT DENIES ANY OTHER NEEDS AT THIS TIME; WILL CONTINUE TO MONITOR
[2019-07-10] MEDS ORDERED: FIORICET PO (07:31)
[2019-07-10] MEDS ORDERED: OXYCODO-APAP1 TA2 PO (07:33)
[2019-07-10] MEDS ORDERED: MONTELUKAST SOD10 MG PO (07:34)
[2019-07-10] MEDS ORDERED: TOPAMAX50 MG PO (07:35)
--- NOTE | 2019-07-10 08:10 | NUR ---
PT RESTING ON STRETCHER;NO S/S OF DISTRESS NOTED; PT ADVISED OF CONTINUED WAIT TIME; VSS; WILL CONTINUE TO MONITOR
--- NOTE | 2019-07-10 08:50 | NUR ---
ACETADOTE STARTED AT THIS TIME PER MAR; PT EDUCATED ON INDICATION OF MEDICATIONS; VERBALIZES UNDERSTANDING; PT TEARFUL AND STATES SHE DOESN'T WANT TO ; EMOTIONAL SUPPORT PROVIDED; VSS WILL CONTINUE TO MONITOR
--- NOTE | 2019-07-10 09:50 | NUR ---
PT ASSISTED TO BSC; PT TOLERATED WELL; PT ADVISED TO CALL FOR ASSISTANCE WHEN NEEDED; VSS; WILL CONTINUE TO MONITOR
--- NOTE | 2019-07-10 10:45 | NUR ---
Admission Note Report Given to: NATI MORALES Transported by: Wheelchair X Stretcher Transported with: X Nurse Transporter X Patent IV O2 X Rn Clinical Review Location: X ICU MS2
--- NOTE | 2019-07-10 10:45 | NUR ---
PT TO ROOM VIA STRETCHER ACCOMPANIED BY ER NURSE. PT ABLE TO AMBULATE TO BED WITH MINIMAL ASSISTANCE. PT IS ALERT AND ORIENTE X3. ADMISSION ASSESSMENT COMPELTED AT THIS TIME. PT REPORTS HAVING UNSTEADY GAIT AT THIS TIME DUE TO MEDICATION. PT STATES THAT SHE DIS NOT INTENTIONALLY TAKE TO MUCH MEDICATION BUT IS VERBALLY ABSUIVE TO HER. IV PATENT X1. ORIENTED PT TO UNIT AND CALL LIGHT SYSTEM. CALL LIGHT IN REACH. BED ALARM PLACED ON FOR PATIENT SAFETY. WILL CONTINUE TO CLOSELY MONITOR.
--- NOTE | 2019-07-10 11:24 | NUR ---
SPOKE WITH Jana SAUCEDO APRN AND NOTIFIED OF ELELVATED BP
--- NOTE | 2019-07-10 11:45 | NUR ---
SET PT UP FOR NOON MEAL
--- NOTE | 2019-07-10 12:00 | NUR ---
Peripheral IV started. IV access obtained with #22 AutoGuard at Right Hand with 1 stick attempts. Flushes easily with good blood return.
--- NOTE | 2019-07-10 12:39 | NUR ---
VASU FROM POISON CONTROL PHONED FOR UPDATE. UPDATE PROVIDED. RECOMMENDED LABS AT 14 HRS OF ACETODOTE.
--- NOTE | 2019-07-10 13:09 | NUR ---
DR ANDREWS AND Jana SAUCEDO APRN AT BEDSIDE AT THIS TIME
--- NOTE | 2019-07-10 13:32 | NUR ---
DAUGHTER LUNA PHONED FOR UPDATE. PATIENT GAVE VERBAL OK TO GIVE DAUGHTER THE CODE AND PROVIDE UPDATE.
--- NOTE | 2019-07-10 13:43 | NUR ---
PT AMBULATED TO BATHROOM FOR BM AND VOID. SMALL NM INCONTINENCE NOTED IN BED WELL. LINENS CHANGED.
--- NOTE | 2019-07-10 14:28 | NUR ---
WHILE THIS MANAGER APPLICATION HANGING THIRD BAG OF ACETEDOTE FOR PATIENT. PATIENT STATES I THINK I AM POOPING IN THE BED. ASKED IF PATIENT NEEDED TO GET UP AND USE RESTROOM. PT STATES NO. CHECKED TOSEE IF THERE WAS ANY BM IN BED NO BM. THIS NURSE EXITED ROOM. PT THEN PUT PHYSICIAN NEONATOLOGY LIGHT THIS NURSE RE ENTERS ROOM PT STATES SHE HAS A HEADACHE. EXPLAINED THAT I WOULD NOTIFY THE PROVIDERS.
--- NOTE | 2019-07-10 15:23 | NUR ---
PT MEDICATED PER JUN PT THE REQUESTS MEDICATION FOR SOMETHING TO HELP HER SLEEP. EXPLAINED AGAIN THAT SHE IS HERE FOR AND OVEDOSE AND IS BEING OBSERVED FOR SUCH. PT RODOLFO BALIZED UNDESTANDING. PT THEN ASSISTED TO BATHROOM., PT HAD BM IN BED AT THIS TIME. LINENS CHANGED PT CLEANSED.
--- NOTE | 2019-07-10 16:50 | NUR ---
TINY CALLED ASKED FOR UPDATE EXPLAINED THAT PATIENT HAD ASKED THAT NO INFO BE GIVEN. TINY VERBALIZED UNDERSTANDING. THEN ASKED TO SPEAK TO PATIENT. PATIENT DENIED TO SPEAK TO SPOUSE. TINY AGAIN VERBALIZED UNDERSTANDING.
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
--- NOTE | 2019-07-10 17:12 | NUR ---
pt used car salesperson light to void. pt incontinent of bm in bed. linens changed. pt cleansed. will continue to monitor.
--- NOTE | 2019-07-10 17:25 | NUR ---
PT SET UP FOR PM MEAL
--- NOTE | 2019-07-10 17:52 | NUR ---
PT CODING COMPLIANCE AUDITOR LIGHT STATING THAT HER HEAD IS HURTING AGAIN AND SHE WOULD LIKE PAIN MEDCATION AND SHE WOULD ALSO LIKE SOMETHING TO HELPHER RELAX. EXPLAINED THAT SHE HAD ALREADY BEEN GIVEN THE MEDICATIONS THAT WERE ORDERED BUT I WOULD NOTIFY THE PHYSICIAN OF HER REQUEST. DR ANDREWS NOTIFIED.
--- NOTE | 2019-07-10 18:06 | NUR ---
PT UPDATED THAT SHE NEEDS TO TRY RELAXATION TECHNIQUES AND DEEP BREATHING EXCERCIES. PT PROVIDED ICE PACK FOR HEADACHE WELL. LIGHTS DIMMED. CURTAINS CLOSED. PT EXPLAINED THAT DUE TO THE FACT SHE IS ALLERGIC TO NSAIDS AND TYLENOL OVERDOSE OPTIONS ARE LIMITED. PT THEN STATES THAT SHE IS NOT ALLERGIC NSAIDS SHE CAN TAKE 1 OR 2. ENCOURAGED PATIENT TO DISCUSS THIS WITH DR ANDREWS TOMORROW.
--- NOTE | 2019-07-10 18:39 | NUR ---
PT CONCRETE MIXING PLANT LABORER LIGHT AGAIN ASKING FOR BENZODIAZEPINES TO HELP HER RELAX. EXPLAINED AGAIN THAT SHE IS HERE FOR A DRUG OVERDOSE AND THAT SHE TOOK A LOT OF MEDICATION AND IS ALREADY HAVING TROUBLE REMEMBERING SHE HAS STATED AND NEEDS TO TRY RELAXATION TECHNIQUES PREVIOUSLY DISCUSSED.
--- NOTE | 2019-07-10 18:45 | NUR ---
RECEIVED REPORT FROM CARMEN DAMIAN.
--- NOTE | 2019-07-10 19:15 | NUR ---
RECEIVED PT IN BED, AAOX3. NO COMPLAINTS AT THIS TIME. NO NEEDS. IV FLUIDS INFUSING TO R WRIST. CALL BROUSSARD IN REACH.
--- NOTE | 2019-07-10 20:00 | NUR ---
PT TALKING ON PHONE TO DAUGHTER, PREVIOUSLY AMB TO BATHROOM WITH ASSIST FOR VOIDING. CALL BROUSSARD IN REACH.
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
--- NOTE | 2019-07-10 22:00 | NUR ---
PT AMB TO BR WITH ASSIST. RETURNED TO BED. PT ASKED FOR REGLAN FOR SLIGHT H/A, INFORMED PT MED NOT DUE UNTIL 0. NO OTHER NEEDS. CALL BROUSSARD IN REACH.
[2019-07-11] VITALS (11 sets, daily range): BP systolic 119–175; BP diastolic 59–124
--- NOTE | 2019-07-11 | NUR ---
PT WITH EYES CLOSED, OPENED WHEN RN ENTERED ROOM. PT C/O SLIGHT HEADACHE, REVIEWED MEDS. RESP EVEN AND UNLABORED. CALL BROUSSARD IN REACH.
--- NOTE | 2019-07-11 01:23 | NUR ---
ASSISTED PT TO BR. VOIDED, RETURNED TO BED. C/O PAIN TO R HAND IV, REWRAPPED. PT RELATED IT FELT BETTER. CALL BROUSSARD IN REACH.
--- NOTE | 2019-07-11 02:00 | NUR ---
PT WITH EYES CLOSED, RESP EVEN AND UNLABORED. CALL BROUSSARD IN REACH.
--- NOTE | 2019-07-11 03:09 | NUR ---
PT C/O 09/14 HEADACHE. MEDICATED PER JUN. NO DISTRESS NOTED. CALL BROUSSARD IN REACH.
--- NOTE | 2019-07-11 03:59 | NUR ---
LAB AT BEDSIDE.
--- NOTE | 2019-07-11 04:10 | NUR ---
PT WITH EYES CLOSED. RESP EVEN AND UNLABORED. NO DISTRESS NOTED. CLL BROUSSARD IN REACH.
[2019-07-11 04:11] LABS: HEMATOCRIT 36.1 % (37.0-47.0); HEMOGLOBIN 11.9 g/dl (12.0-16.0); IMMATURE GRANULOCYTES 0.3 % (0.0-5.0); MEAN CELL VOLUME 87.8 fL CALC (80.0-100.0); NEUT# 4.72 thou/uL (2.00-7.15); RED BLOOD COUNT 4.11 mill/uL (4.20-5.60)
[2019-07-11 04:33] LABS: ALKALINE PHOSPHATASE 74 u/l (38-126); BUN 4 mg/dL (8-23); BUN/CREATININE RATIO 7 (12-20 (CALC)); CARBON DIOXIDE 19 mmol/l (22-30); CHLORIDE 109 mmol/l (95-108); CREATININE 0.5 mg/dL (0.5-1.0); GFR > 60 ML/MIN (>=60 (CALC)); GFR FOR AFR.AMER. > 60 ML/MIN (>=60 (CALC)); SGOT/AST 15 u/l (9-36); SODIUM 137 mmol/l (137-146)
[2019-07-11 04:34] LABS: ANION GAP 12 (6-22 (CALC)); POTASSIUM 2.9 mmol/l (3.5-5.1)
[2019-07-11 04:35] LABS: ALBUMIN 3.4 g/dL (3.2-5.0); BILIRUBIN, TOTAL 0.3 mg/dL (0.0-1.4); TOTAL PROTEIN 6.1 g/dL (6.3-8.2)
--- NOTE | 2019-07-11 05:19 | NUR ---
PT AMB WITH ASSISTANCE TO BATHROOM. RETURNED TO BED. CALL AARTI IN REACH.
--- NOTE | 2019-07-11 05:27 | NUR ---
RESP AT BEDSIDE FOR EKG.
--- NOTE | 2019-07-11 06:03 | NUR ---
ACETADOTE OFF. PT RELATED REGLAN HAS HELPED HER H/A. NO DISTRESS NOTED, NO NEEDS AT THIS TIME. CALL BROUSSARD IN REACH.
--- NOTE | 2019-07-11 06:17 | NUR ---
DADA FROM POISON CONTROL CALLED, REVIEWED LABS. PT CASE WILL BE CLOSED AT THIS TIME.
--- NOTE | 2019-07-11 06:40 | NUR ---
REPORT TO RENNY DAMIAN.
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
--- NOTE | 2019-07-11 07:15 | NUR ---
APRESOLINE GIVEN FOR ELEVATED BP. DISCUSSED MEDICATION & INDICATION. PT QUESTIONED WETHER SHE'D HAVE TO CONTINUE TO TAKE THESE HOSPITAL MEDS ALL THE TIME.
--- NOTE | 2019-07-11 07:35 | NUR ---
PT PUSHED CAMRON TO QUESTION WETHER WE WERE GOING TO GIVE HER ANYTHING FOR HER BP. REEDUCATED PT ON MP MEDS PREVIOUSLY GIVEN.
--- NOTE | 2019-07-11 08:21 | NUR ---
PT ASSISTED TO BATHROOM.
--- NOTE | 2019-07-11 08:25 | NUR ---
PT GIVEN UNIT PORT PHONE TO MAKE PERSONAL CALLS.
--- NOTE | 2019-07-11 09:07 | NUR ---
PT MEDICATED PER EMAR. EDUCATED PT ON MEDICATIONS, INDICATIONS, & SIDE EFFECTS. PT EXPRESSED CONCERN OVER BP MED; ANSWERED PTS CONCERNS. STAYED WITH PT FOR AWHILE CONVERSING TO HELP EASE ANXIETY.
--- NOTE | 2019-07-11 09:27 | NUR ---
PT ON CALLBELL TO ASK ABOUT THE PORTABLE PHONE ON BEDSIDE TABLE.
--- NOTE | 2019-07-11 09:40 | NUR ---
PT OVERHEARD ARGUING WITH SOME ONEOVER PHONE
--- NOTE | 2019-07-11 09:58 | NUR ---
ENTERED PTS ROOM WHEN IT SOUNDED LIKE PT WAS CRYING, FOUND PT ON PHONE. PT DENIES CRYING, SAYING SHE IS TALKING TO HER ABOUT HER DOGS. WILL CONTINUE TO MONITOR.
--- NOTE | 2019-07-11 10:00 | NUR ---
PT REFUSED BATH, TEETH BRUSHING, & LINEN CHANGE; PT ONLY REQUESTED A COMB FOR HER HAIR.
--- NOTE | 2019-07-11 10:28 | NUR ---
PT ASSISTED TO BATHROOM.
--- NOTE | 2019-07-11 10:40 | NUR ---
PT BACK IN BED; STATES SHE IS GOING TO TAKE A NAP.
--- NOTE | 2019-07-11 10:56 | NUR ---
PT ON CALLBELL FOR ASSISTANCE ON THE PHONE, THAT IS ON BEDSIDE.
--- NOTE | 2019-07-11 11:16 | NUR ---
PT SITTING UP IN BED, EATING LUNCH. PT CONVERSING ABOUT HER HUSBANDS KNEE SURGERY LAST YEAR. PT REMAINS SHAKY/TREMBLING.
--- NOTE | 2019-07-11 12:15 | NUR ---
PT ON CALLBELL SHE WANTED HER BP & TEMP CHECKED. PT ASSURED HER BP IS WNL. TEMPORAL TEMP WNL.
--- NOTE | 2019-07-11 12:44 | NUR ---
DR ANDREWS & KEM ROBBINS @BEDSIDE ASSESSING PT. ITZEL HAS BEEN ON THE UNIT x2 TO CHECK ON PT PRIOR TO THIS VISIT.
--- NOTE | 2019-07-11 12:50 | NUR ---
HEATH ACT COMPLETED BY DR ANDREWS.
--- NOTE | 2019-07-11 13:14 | NUR ---
SOON LEFT ROOM, PT ACTED IF SHE DID NOT KNOW WHAT GOING ON. REMINDED PT OF 'S CONVERSATION ABOUT JOE ACT. INFORMED PT OF RIGHT WHILE UNDER A JOE ACT. CLOTHES & BELONGINGS COLLECTED AND PLACED IN LABELED BAG OUTSIDE OF DOOR. PT ALLOWED PORTABLE UNIT PHONE LONG SHE DOESNT GET UPSET. PT VOICED CONCERNS ABOUT POLICE TRANSFERING HER TO NEW FACILITY. PT BEING MANIPULATIVE. PHONED TO ASK FOR SUPPLIES FOR TRANSFER FACILITY. CIRO @BEDSIDE. HOUSE SUP AWARE OF B.A.
--- NOTE | 2019-07-11 14:05 | NUR ---
PT REQUESTED I SPEAK TO HER DAUGHTER ON PORTABLE UNIT PHONE. JAROD VOICED CONCERNS OF [facility] AND WAS TEARFUL.
--- NOTE | 2019-07-11 14:32 | NUR ---
PT ON CALLBELL, WITH SITTER @BEDSIDE, TO ASK FOR BURNS MEDICATIONS.
--- NOTE | 2019-07-11 14:36 | NUR ---
TINY, , CALLED TO ASK QUESTIONS ABOUT PTS JOE ACT BC HE & DAUGHTER "ARE VERY UPSET". AFTER GETTING PERMISSION TO TALK TO FROM PT, ANSWERED QUESTIONS ABUT WHEN & WHERE PT WILL TRANSFERED, THEN WANTED TO TELL STORIES ABOUT PTS PREVIOUS JOE ACTS; ENCOURAGED TO DISCUSS PLACEMENT WITH CASE MANAGEMENT. WANTS TO DROP OFF CLOTHING FOR PT AT [facility].
--- NOTE | 2019-07-11 14:46 | NUR ---
DIETARY @BEDSIDE FOR MEAL PREFERENCE.
--- NOTE | 2019-07-11 14:55 | NUR ---
CASE MANAGEMENT ON UNIT FOR TRANSFER
--- NOTE | 2019-07-11 15:33 | NUR ---
PT C/O BURNS. WHEN IN ROOM TO GIVE IV REGLAN, NOTICED MILD EDEMA TO UPPER LEFT ARM; HARD AROUND IV SITE. IV DC'D, TIP INTACT, DRESSING APPLIED. TELEVISION CABLE INSTALLER NOTIFIED UNABLE TO ESTABLISH ANOTHER IV SITE, ADVISED IV NOT NEEDED NOW THAT PT IS MEDICALLY CLEARED. PTS TEMP LOWERED, BLINDS CLOSED, LIGHTS OFF, ICE PACK PLACED ON FOREHEAD. PT UPDATED ON POC. REGLAN WASTED. PT REQUESTING TRAMADOL PO.
--- NOTE | 2019-07-11 15:37 | NUR ---
PT REQUEST RN IN ROOM TO ASK IF THIS RN COULD START AN IV IN BETWEEN HER PINKY & RING FINGER "WHERE THEY GET HER SOMETIMES".
--- NOTE | 2019-07-11 15:52 | NUR ---
PT ASSISTED UP TO BATHROOM. GAIT STEADY. PT GIVEN NONSKID SOCKS TO WEAR FOR FALL SAFETY.
--- NOTE | 2019-07-11 16:03 | NUR ---
PTS BROUGHT SUITCASE TO HOSPITAL. SUITCASE OUTSIDE ROOM WITH PERSONAL BELONGINGS BAG. PT C/O DIARRHEA, PT ASKED TO NOT FLUSH THE NEXT TIME SO STAFF CAN SEE. WILL NOTIFY [employer]P SALES.
--- NOTE | 2019-07-11 16:19 | NUR ---
PT ASSISTED UP TO BATHROOM
--- NOTE | 2019-07-11 16:35 | NUR ---
PT UP TO SINK, BRUSHING HER TEETH. STAFF OBSERVED A FORMED BM IN TOILET.
--- NOTE | 2019-07-11 16:51 | NUR ---
PT ON CALLBELL ASKING FOR PAIN MEDICATIONS. PT REEDUCATED ON NONPHARMICUETICAL INTERVENTIONS.
--- NOTE | 2019-07-11 17:05 | NUR ---
SPOKE WITH MALATHI AT [facility] ([phone]) FOR REPORT.
--- NOTE | 2019-07-11 18:18 | NUR ---
LORIE DE LA TORRE TO SEND PT TO [place]. CALLED [facility] FOR TRANSPORT.
--- NOTE | 2019-07-11 18:27 | NUR ---
PT DRESSING SELF. PT NOTIFIED OF PLACE OF TRANSFER. ALSO NOTIFIED DAUGHTER OF PTS TRANSFER.
--- NOTE | 2019-07-11 18:32 | NUR ---
PT AMBULATED OUT THE DOOR WITH OFFICER. ALL BELONGINGS GIVEN TO OFFICER FOR TRANSPORT.
== END 2019-07-11 18:32 | DRG 918 ==
PROVIDERS: ADMIT Internal Medicine
DX: T39.1X1A Poisoning by 4-Aminophenol derivatives, accidental (unintentional), initial encounter (principal); F22 Delusional disorders; F32.9 Major depressive disorder, single episode, unspecified; F41.9 Anxiety disorder, unspecified; G43.909 Migraine, unspecified, not intractable, without status migrainosus; M54.30 Sciatica, unspecified side; I10 Essential (primary) hypertension; E87.6 Hypokalemia; M75.101 Unspecified rotator cuff tear or rupture of right shoulder, not specified as traumatic; Z91.81 History of falling; Z63.0 Problems in relationship with spouse or partner; Z91.5 Personal history of self-harm
CPT/HCPCS: Q9967

== ENCOUNTER 2019-10-08 14:36 | Emergency (ER) | payer MEDICARE, OTHER ==
[~2019-10-08] VITALS: Ht 160 cm; Wt 65.0 kg
[~2019-10-08 14:36] MED LIST changes: +MONTELUKAST SOD10 MG PO; +OXYCODO-APAP1 TA2 PO; +TOPAMAX50 MG PO
[2019-10-08] MEDS ORDERED: HYDROCO/APAP1 TA9 PO ×2 (15:21)
[2019-10-08] MEDS ORDERED: PANTOPRAZOLE SO40 M1 PO (16:28)
[2019-10-08] MEDS ORDERED: CELEXA20 MG PO (16:29)
[2019-10-08] MEDS ORDERED: DESYREL50 MG PO (16:31)
[2019-10-08] MEDS ORDERED: AMLODIPINE BESYL5 MG PO (16:33)
[2019-10-08 17:08] VITALS: BP 133/80
== END 2019-10-08 17:08 | disposition home or self-care (01) ==
LOC: ED 14:36
DX: M25.512 Pain in left shoulder (principal); I10 Essential (primary) hypertension

== ENCOUNTER 2019-11-19 14:13 | Emergency (ER) | payer MEDICARE, OTHER ==
[~2019-11-19] VITALS: Ht 160 cm; Wt 60.9 kg
[~2019-11-19 14:13] MED LIST changes: +AMLODIPINE BESYL5 MG PO; +CELEXA20 MG PO; +DESYREL50 MG PO; +HYDROCO/APAP1 TA9 PO; +PANTOPRAZOLE SO40 M1 PO
[2019-11-19] MEDS ORDERED: TRAMADOL HYDROC50 M1 PO (18:09)
[2019-11-19] MEDS ORDERED: CYCLOBENZAPR5 MG PO ×2 (18:17)
[2019-11-19] MEDS ORDERED: PREDNISONE50 MG PO ×2 (18:19)
[2019-11-19 19:35] VITALS: BP 137/71
== END 2019-11-19 19:35 | disposition home or self-care (01) ==
LOC: ED 14:13
DX: M25.512 Pain in left shoulder (principal); M54.5 Low back pain; I10 Essential (primary) hypertension; G40.909 Epilepsy, unspecified, not intractable, without status epilepticus

== ENCOUNTER 2020-01-21 14:19 | Emergency (ER) | payer MEDICARE, OTHER ==
[~2020-01-21] VITALS: Ht 160 cm; Wt 65.9 kg
[~2020-01-21 14:19] MED LIST changes: +CYCLOBENZAPR5 MG PO; +TRAMADOL HYDROC50 M1 PO
[2020-01-21] MEDS ORDERED: AMOX/K CLAV875 M1 PO (14:50)
[2020-01-21] MEDS ORDERED: FIORICET PO (15:59)
[2020-01-21 16:03] VITALS: BP 145/90
== END 2020-01-21 16:03 | disposition home or self-care (01) ==
LOC: ED 14:19
DX: J34.89 Other specified disorders of nose and nasal sinuses (principal); R51.9 Headache, unspecified; I10 Essential (primary) hypertension; K21.9 Gastro-esophageal reflux disease without esophagitis; G40.909 Epilepsy, unspecified, not intractable, without status epilepticus

== ENCOUNTER 2020-01-28 12:28 | Observation (INO) | payer MEDICARE, OTHER ==
[~2020-01-28] VITALS: Ht 160 cm; Wt 65.1 kg
[~2020-01-28 12:28] MED LIST changes: +AMOX/K CLAV875 M1 PO
--- NOTE | 2020-01-28 12:30 | NUR ---
Pt to room # 13 via W/C for bedside triage
[2020-01-28 13:06] LABS: HEMATOCRIT 40.4 % (37.0-47.0); HEMOGLOBIN 12.5 g/dl (12.0-16.0); IMMATURE GRANULOCYTES 0.5 % (0.0-5.0); MEAN CELL VOLUME 92.2 fL CALC (80.0-100.0); MEAN CORPUSCULAR HGB 28.5 pG CALC (26.0-32.0); MEAN CORPUSCULAR HGB CONC 30.9 g/dL CAL (32.0-36.0); NEUT# 3.65 thou/uL (2.00-7.15); RED BLOOD COUNT 4.38 mill/uL (4.20-5.60); RED CELL DISTRI WIDTH 14.2 % (11.5-15.5)
[2020-01-28 13:13] LABS: ALBUMIN 4.3 g/dL (3.2-5.0); ALKALINE PHOSPHATASE 121 u/l (38-126); AMYLASE 173 u/l (30-110); ANION GAP 11 (6-22 (CALC)); BILIRUBIN, TOTAL 0.3 mg/dL (0.0-1.4); BUN 10 mg/dL (8-23); BUN/CREATININE RATIO 14 (12-20 (CALC)); CARBON DIOXIDE 25 mmol/l (22-30); CHLORIDE 104 mmol/l (95-108); CREATININE 0.7 mg/dL (0.5-1.0); GFR > 60 ML/MIN (>=60 (CALC)); GFR FOR AFR.AMER. > 60 ML/MIN (>=60 (CALC)); LIPASE 881 u/l (23-300); SGOT/AST 28 u/l (9-36); SODIUM 136 mmol/l (137-146); TOTAL PROTEIN 7.7 g/dL (6.3-8.2)
[2020-01-28 13:14] LABS: ACT PARTIAL THROMBO TIME 19.6 SECONDS (20.0-32.5); PROTHROMBIN TIME 10.2 SECONDS (9.0-12.5)
[2020-01-28] MEDS ORDERED: ZOLPIDEM10 M1 PO (16:27)
[2020-01-28] MEDS ORDERED: CLONAZEPAM0.5 M1 PO (16:27)
[2020-01-28] MEDS ORDERED: AZELASTINE0.1 % (16:28)
[2020-01-28] MEDS ORDERED: FIORICET PO (16:28)
[2020-01-28] MEDS ORDERED: FLONASE AL50 MCG/ACT ×2 (16:29→16:30)
[2020-01-28] MEDS ORDERED: TRAZODONE50 MG PO (16:30)
[2020-01-28] MEDS ORDERED: MONTELUKAST SOD10 MG PO (16:30)
--- NOTE | 2020-01-28 17:00 | NUR ---
PT PROVIDED MEDS FOR PAIN AND NAUSEA, SEEN COMFORTABLE. PT AWARE OF PENDING ADMISSION.
[2020-01-28 18:11] VITALS: BP 124/70
--- NOTE | 2020-01-28 18:22 | NUR ---
PT TAKEN TO ROOM 272 WITHOUT INCIDENT, REPORT WAS TO DAVE DAMIAN.
--- NOTE | 2020-01-28 18:31 | NUR ---
PT HAD COME VIA STRETCHER BY DORIS AT 181. FIELD MARKETING ASSOCIATE IN ROOM TO OBTAIN VS. PT IS A&O X3. IVF INFSUING WELL. TELE IN PLACE READING SR 66 PER ER. PT STATED PAIN IN ABD 10/14. WILL OBTAIN ORDERS FOR PAIN BY MD. CARTER PRECAUTIONS REINFORCED AND CALL LIGHT IN REACH.
--- NOTE | 2020-01-28 19:30 | NUR ---
PT APPEARS CALM AND IS WATCHING TV IN BED, BUT IS ASKING WHEN SHE CAN GET SOMETHING FOR PAIN. I EXPLAINED THAT I AM WAITING ON PHARMACY TO APPROVE ORDERS OBTAINED BY DAYSHIFT, BUT THAT SOON I COULD PULL THE MEDICATION, I WOULD BRING IT. SHE VERBALIZED UNDERSTANDING. SHE REPORTS 8/10 ON PAIN SCALE AT THIS TIME, NO DISTRESS NOTED.
--- NOTE | 2020-01-28 20:07 | NUR ---
PT MEDICATED FOR PAIN AND PM MEDICATIONS AT THIS TIME. PT DENIES ANY OTHER NEEDS.
[2020-01-28 21:00] VITALS: BP 92/58
--- NOTE | 2020-01-28 21:43 | NUR ---
PT REPORTS MORPHINE IS HELPING STATES 6/10 ON PAIN SCALE. PT APPEARS CALM AND IS TALKING ABOUT THE MOVIE ON THE [employer] CHANNEL ON TV. NO DISTRESS NOTED. PT MEDICATED W/SLEEP AIDE REQUESTED BY PT. CALL LIGHT W/IN REACH AND PT ENCOURAGED TO CALL NEEDS ARISE.
--- NOTE | 2020-01-28 23:58 | NUR ---
ASSISTED PT TO RESTROOM AND BACK TO BED. PT ASKING FOR PAIN MEDICATION/PAIN SCALE REPORTED 8/10 IN RUQ AND LUQ OF ABD. PT MEDICATED ORDERS RPOVIDE AT THIS TIME. ASSISTED PT POSITION FOR COMFORT AND CALL LIGHT AT SIDE. PT DENIES ANY OTHER NEEDS.
[2020-01-29] VITALS (7 sets, daily range): BP systolic 90–139; BP diastolic 55–71
--- NOTE | 2020-01-29 04:10 | NUR ---
PT MEDICATED FOR PAIN IN RUQ OF ABD, RIGH CHEST AREA AND HEADACHE. PT REQUESTED TYLENOL WITH THE MORPHINE BECAUSE SHE THINKS THE MORPHINE IS GIVING HER HEADACHES. PT DENIES ANY OTHER NEEDS AT THIS TIME.
[2020-01-29 05:13] LABS: HEMATOCRIT 35.4 % (37.0-47.0); HEMOGLOBIN 10.7 g/dl (12.0-16.0); IMMATURE GRANULOCYTES 0.3 % (0.0-5.0); MEAN CELL VOLUME 94.7 fL CALC (80.0-100.0); MEAN CORPUSCULAR HGB 28.6 pG CALC (26.0-32.0); MEAN CORPUSCULAR HGB CONC 30.2 g/dL CAL (32.0-36.0); NEUT# 2.09 thou/uL (2.00-7.15); RED BLOOD COUNT 3.74 mill/uL (4.20-5.60); RED CELL DISTRI WIDTH 14.5 % (11.5-15.5)
[2020-01-29 05:34] LABS: ALBUMIN 3.1 g/dL (3.2-5.0); ALKALINE PHOSPHATASE 81 u/l (38-126); ANION GAP 5 (6-22 (CALC)); BILIRUBIN, TOTAL 0.2 mg/dL (0.0-1.4); BUN 7 mg/dL (8-23); BUN/CREATININE RATIO 9 (12-20 (CALC)); CARBON DIOXIDE 27 mmol/l (22-30); CHLORIDE 110 mmol/l (95-108); CREATININE 0.7 mg/dL (0.5-1.0); GFR > 60 ML/MIN (>=60 (CALC)); GFR FOR AFR.AMER. > 60 ML/MIN (>=60 (CALC)); LIPASE 65 u/l (23-300); POTASSIUM 4.1 mmol/l (3.5-5.1); SGOT/AST 19 u/l (9-36); SODIUM 138 mmol/l (137-146); TOTAL PROTEIN 5.6 g/dL (6.3-8.2)
--- NOTE | 2020-01-29 07:19 | NUR ---
PT A&O X3. ABLE TO VOICE NEEDS. IN NO ACUTE PAIN OR DISTRESS. SELF ASSIST. STATES HER PAIN IS TO THE RIGHT OF HER NAVEL EXTENDING OUT APPROX 6 INCHES. HAD A HEADACHE LAST NIGHT THAT TYLENOL HELPED. BREATH SOUNDS DIMINISHED LEFT UPPER LOBE MORE THAN RIGHT. WILL MONITOR.
--- NOTE | 2020-01-29 10:05 | NUR ---
CONSULT PLACED FOR DR ARMENTA FOR PANCREATITIS, ABD PAIN AND DILATED BILIARY TREE
--- NOTE | 2020-01-29 10:41 | NUR ---
DR ARMENTA AT BEDSIDE DISCUSSING POC
--- NOTE | 2020-01-29 11:54 | NUR ---
PT. RESTING IN BED. HAS BEEN UP X4 TO PASS LARGE VOLUMES OF GAS. RELAYED THIS TO ADRIANA TAFOYA NP. PT. UP WITH WALKER WITH SLOW PROGRESS, YET STABLE. C/O PAIN IN ABD TO RIGHT OF NAVEL EXTENDING APPROX SIX INCHES. CHANGE MADE TO PAIN MED BY . WILL MONITOR.
--- NOTE | 2020-01-29 13:30 | NUR ---
PAIN ASSESSMENT AFTER MORPHINE FOR ABD PAIN GIVEN AT NEWLY ORDERED INCREASED DOSE. AWAKENED NAPPING PT. EASILY AROUSED AND ALERT AND ORIENTED. STATES INCREASED DOSE HAS PAIN UNDER CONTROL. UP TO BR TO VOID.
--- NOTE | 2020-01-29 20:05 | NUR ---
PT PROVIDED W/FRESH ICEWATER AND ASSESSMENT COMPLETED AT THIS TIME. PT TALKING ON CELL PHONE. PT REPORTS "LITTLE, VERY LITTLE" PAIN. FOOT ELEVATED ON PILLOWS AND CECY BANDAGE TO RLE. TOES WARM TO TOUCH AND PT ABLE TO WIGGLE.
--- NOTE | 2020-01-29 23:27 | NUR ---
pt medicated for pain at this time. denies any other needs.
--- NOTE | 2020-01-30 03:35 | NUR ---
IVF replenished at this time. Pt denies any needs at this time.
[2020-01-30 04:10] VITALS: BP 153/81
--- NOTE | 2020-01-30 04:14 | NUR ---
Pt medicated for pain 7/10 on pain scale. V/s assessed at this time. Pt up to restroom and back to bed with INSTRUCTIONAL LEADER. Pt left in bed talking and appearing calm, no s/o distress. Call light at side.
[2020-01-30 05:59] LABS: HEMATOCRIT 38.6 % (37.0-47.0); HEMOGLOBIN 11.9 g/dl (12.0-16.0); IMMATURE GRANULOCYTES 0.4 % (0.0-5.0); MEAN CORPUSCULAR HGB 28.7 pG CALC (26.0-32.0); MEAN CORPUSCULAR HGB CONC 30.8 g/dL CAL (32.0-36.0); NEUT# 5.7 thou/uL (2.00-7.15); RED BLOOD COUNT 4.15 mill/uL (4.20-5.60); RED CELL DISTRI WIDTH 14.3 % (11.5-15.5)
[2020-01-30 06:09] LABS: ALBUMIN 3.5 g/dL (3.2-5.0); ALKALINE PHOSPHATASE 95 u/l (38-126); ANION GAP 8 (6-22 (CALC)); BILIRUBIN, TOTAL 0.2 mg/dL (0.0-1.4); BUN 3 mg/dL (8-23); BUN/CREATININE RATIO 5 (12-20 (CALC)); CARBON DIOXIDE 25 mmol/l (22-30); CHLORIDE 108 mmol/l (95-108); CREATININE 0.6 mg/dL (0.5-1.0); GFR > 60 ML/MIN (>=60 (CALC)); GFR FOR AFR.AMER. > 60 ML/MIN (>=60 (CALC)); LIPASE 36 u/l (23-300); POTASSIUM 4.1 mmol/l (3.5-5.1); SGOT/AST 19 u/l (9-36); SODIUM 137 mmol/l (137-146)
[2020-01-30 07:16] VITALS: BP 136/78
--- NOTE | 2020-01-30 07:16 | NUR ---
PT RESTING IN BED, NO SIGNS OF DISTRESS NOTED, RESP EVEN AND UNLABORED. PT ALERT AND ORIENTED X3, DISCUSSED POC, VITALS OBTAINED. PT C/O PAIN MEDICATED PER MAR. ASSESSMENT COMPLETED, CALL LIGHT IN REACH,CONTINUE TO MONITOR.
[2020-01-30 10:32] VITALS: BP 98/49
--- NOTE | 2020-01-30 11:14 | NUR ---
PT MEDICATED FOR PAIN, CALL LIGHT IN REACH,CONTINUE TO MONITOR.
--- NOTE | 2020-01-30 14:32 | NUR ---
PT C/O PAIN MEDICATED PER MAR, CALL LIGHT IN REACH,CONTINUE TO MONITOR.
[2020-01-30 14:40] VITALS: BP 97/40
[2020-01-30 19:00] VITALS: BP 108/75
--- NOTE | 2020-01-30 19:13 | NUR ---
Pt in bed w/lights low and tv on. Denies pain at this time. Poc and medication schedule discussed, pt asking for pain medication with her evening meds. Denies any other needs at this time.
--- NOTE | 2020-01-30 21:23 | NUR ---
PT MEDICATED FOR PAIN, REPORTS 9/10 ON PAIN SCALE. NO S/O DISTRESS NOTED. ASSISTED PT RESPOSITION IN THE BED AND WITH COVERS FOR COMFORT. PT MEDICATED W/PM MEDICATIONS. DENIES ANY OTHER NEEDS AT THIS TIME. LIGHTS AND TV ARE OFF, BST AND CALL LIGHT W/IN REACH.
--- NOTE | 2020-01-30 21:54 | NUR ---
PT CALLED ASKING FOR SLEEP AIDE/PROVIDED. DENIES ANY OTHER NEEDS AT THIS TIME.
[2020-01-31] VITALS: BP 124/73
--- NOTE | 2020-01-31 00:10 | NUR ---
PT SLEEPING, NO S/O DISTRESS NOTED. CALL LIGHT W/IN REACH.
--- NOTE | 2020-01-31 02:01 | NUR ---
PT MEDICATED FOR PAIN REPORTED 7/10 ON PAIN SCALE IN UPPER ABD QUADRANT. ABD IS SOFT TO PALPATION. PT APPEARS CALM AND REPORTS HAVING BEEN SLEEPING VERY WELL. CALL LIGHT AT SIDE.
--- NOTE | 2020-01-31 03:53 | NUR ---
PT MEDICATED FOR C/O HEADACHE. PT MENTIONED SHE THINKS MAYBE THE MORPHINE IS GIVING HER A HEADACHE AND THAT SHE HAS TAKEN DILAUDID BEFORE. PT APPEARS CALM AND RESTING, BUT DOES REPORT PAIN STILL AT A 7/10 ON PAIN SCALE.
[2020-01-31 04:00] VITALS: BP 150/78
--- NOTE | 2020-01-31 06:08 | NUR ---
PT AMBULATED TO THE RESTROOM AND BACK TO BED. MEDICATED FOR PAIN 7/10 ON PAIN SCALE IN UPPER BILAT ABD. PT APPEARS CALM AND TALKATIVE. NO S/O DISTRESS AT THIS TIME. PT TALKING ABOUT HOW COMFORTABLE SHE WAS ALL NIGHT. PT LEFT IN BED WITH LIGHTS OFF AND CALL LIGHT AT SIDE.
--- NOTE | 2020-01-31 06:50 | NUR ---
REPORT RECEIVED FROM NATI ALBERTO. PT RESTING IN BED, NO S/S OF AT THIS TIME. SAFETY PRECAUTIONS IN PLACE. WILL CONTINUE TO MONITOR.
[2020-01-31 07:17] VITALS: BP 153/57
--- NOTE | 2020-01-31 07:17 | NUR ---
PT RETURNING TO BED FROM THE BATHROOM, GATE STEADY. PT IS ALERT AND ORIENTED. RESPIRATIONS ARE EVEN AND UNLABORED ON RA. LUNGS SOUND CLEAR. PEDAL PULSES ARE WEAK. PT DENIES ANY PAIN OR DISCOMFORT AT THIS TIME. SAFETY PRECAUTIONS IN PLACE. WILL CONTINUE TO MONITOR.
--- NOTE | 2020-01-31 15:10 | NUR ---
PT TAKEN DOWN TO MRI, VIA WHEELCHAIR ACCOMPANIED BY ON SITE WASTEWATER SYSTEMS TECHNICIAN.
[2020-01-31 15:40] VITALS: BP 110/74
--- NOTE | 2020-01-31 15:44 | NUR ---
PT RESTING IN BED, NO S/S OF DISTRESS AT THIS TIME. SAFETY PRECAUTIONS IN PLACE. WILL CONTINUE TO MONTIOR.
[2020-01-31 18:30] VITALS: BP 135/82
--- NOTE | 2020-01-31 19:00 | NUR ---
RECEIVED REPORT FROM NURSE BEAR, PATIENT RESTING IN BED WATCHING TV, BREATHING EVEN UNLABORED CALL LIGHT AT REACH.
--- NOTE | 2020-01-31 21:00 | NUR ---
PATIENT ALERT ORIENTED ABLE TO MAKE NEEDS KNONW, WITH ONGOING IV OF NS @ 150 CC/HR INFUSING WELL ON THE LFA REMAINS ON TELE SR 61, BREATHING EVEN AND UNLABORED, PATIENT STARTED ON FULL LIQUID DIET THEN REINFORCED ON NPO POST MIDNIGHT, CALL LIGHT AT REACH.
[2020-01-31 23:15] VITALS: BP 139/71
--- NOTE | 2020-02-01 00:51 | NUR ---
PATIENT APPEARS TO BE SLEEPING WITH EYES CLOSED, BREATHING EVEN AND UNLABORED CALL LIGHT AT REACH.
[2020-02-01 03:51] VITALS: BP 144/75
--- NOTE | 2020-02-01 03:56 | NUR ---
ATIENT IS RESTING WITH EYES CLOSED, BREATHING EVEN UNLABORED, REMAINS ON NPO CALL LIGHT AT REACH.
[2020-02-01 08:00] VITALS: BP 149/71
--- NOTE | 2020-02-01 11:06 | NUR ---
PT IS AWAKE, ALERT, ORIENTED X 3. LUNGS CLEAR, RA. PT WITH ABDOMINAL DISCOMFORT THAT IS RECURRING, MEDICATED NEEDED. PT AWARE OF EGD SCHEDULED FOR TODAY, HAS BEEN NPO. NO DISTRESS NOTED, AMBULATORY IN ROOM.
--- NOTE | 2020-02-01 14:08 | NUR ---
PT TO EGD TODAY. PT MEDICATED FOR PAIN EARLIER.
[2020-02-01] MEDS ORDERED: PERCOCET 10/31 COMBO PO (14:13)
[2020-02-01] MEDS ORDERED: PROTONIX40 M2 PO (14:13)
[2020-02-01 15:45] VITALS: BP 140/72
--- NOTE | 2020-02-01 16:06 | NUR ---
PT VERBALIZES UNDERSTANDING OF DC INSTRUCTIONS, CALLS FOR RIDE HOME. PT LEAVES [facility] IN STABLE CONDITION.
== END 2020-02-01 16:00 | disposition home or self-care (01) ==
LOC: ED 12:28 → ED-I 15:51 → ED 16:04 → MS2 16:05
PROVIDERS: Nurse Practitioner; ADMIT Internal Medicine; ATTEND Internal Medicine
PROC: 0DB78ZX Excision of Stomach, Pylorus, Via Natural or Artificial Opening Endoscopic, Diagnostic (ICD-10-PCS; principal; 2020-02-01)
DX: K85.90 Acute pancreatitis without necrosis or infection, unspecified (principal); K29.50 Unspecified chronic gastritis without bleeding; K21.9 Gastro-esophageal reflux disease without esophagitis; K44.9 Diaphragmatic hernia without obstruction or gangrene; I10 Essential (primary) hypertension; G40.909 Epilepsy, unspecified, not intractable, without status epilepticus; F32.9 Major depressive disorder, single episode, unspecified; F41.9 Anxiety disorder, unspecified; Z20.828 Contact with and (suspected) exposure to other viral communicable diseases
CPT/HCPCS: G0378; Q9967

== ENCOUNTER 2020-02-08 09:48 | Observation (INO) | payer MEDICARE, OTHER ==
[~2020-02-08] VITALS: Ht 160 cm; Wt 62.3 kg
[~2020-02-08 09:48] MED LIST changes: +AZELASTINE0.1 %; +CLONAZEPAM0.5 M1 PO; +FLONASE AL50 MCG/ACT; +PERCOCET 10/31 COMBO PO; +PROTONIX40 M2 PO; +TRAZODONE50 MG PO; +ZOLPIDEM10 M1 PO
[2020-02-08 10:39] LABS: HEMATOCRIT 39.9 % (37.0-47.0); HEMOGLOBIN 12.6 g/dl (12.0-16.0); IMMATURE GRANULOCYTES 0.4 % (0.0-5.0); MEAN CELL VOLUME 90.1 fL CALC (80.0-100.0); MEAN CORPUSCULAR HGB 28.4 pG CALC (26.0-32.0); MEAN CORPUSCULAR HGB CONC 31.6 g/dL CAL (32.0-36.0); NEUT# 2.9 thou/uL (2.00-7.15); RED BLOOD COUNT 4.43 mill/uL (4.20-5.60)
[2020-02-08 11:00] LABS: ALBUMIN 4.1 g/dL (3.2-5.0); ALKALINE PHOSPHATASE 88 u/l (38-126); ANION GAP 11 (6-22 (CALC)); BUN 7 mg/dL (8-23); BUN/CREATININE RATIO 11 (12-20 (CALC)); CARBON DIOXIDE 23 mmol/l (22-30); CHLORIDE 110 mmol/l (95-108); CREATININE 0.6 mg/dL (0.5-1.0); GFR > 60 ML/MIN (>=60 (CALC)); GFR FOR AFR.AMER. > 60 ML/MIN (>=60 (CALC)); POTASSIUM 3.8 mmol/l (3.5-5.1); SGOT/AST 22 u/l (9-36); SODIUM 139 mmol/l (137-146)
[2020-02-08 11:01] LABS: BILIRUBIN, TOTAL 0.3 mg/dL (0.0-1.4)
[2020-02-08 14:27] VITALS: BP 113/72
[2020-02-08 14:30] VITALS: BP 113/72
[2020-02-08 18:47] VITALS: BP 102/62
[2020-02-08 23:30] VITALS: BP 112/68
[2020-02-09 03:55] VITALS: BP 122/72
[2020-02-09 05:56] LABS: HEMOGLOBIN 10.8 g/dl (12.0-16.0); IMMATURE GRANULOCYTES 0.4 % (0.0-5.0); MEAN CELL VOLUME 91.2 fL CALC (80.0-100.0); MEAN CORPUSCULAR HGB CONC 31.8 g/dL CAL (32.0-36.0); NEUT# 1.78 thou/uL (2.00-7.15); RED BLOOD COUNT 3.73 mill/uL (4.20-5.60); RED CELL DISTRI WIDTH 14.2 % (11.5-15.5)
[2020-02-09 06:29] LABS: ALKALINE PHOSPHATASE 71 u/l (38-126); ANION GAP 8 (6-22 (CALC)); BUN 7 mg/dL (8-23); BUN/CREATININE RATIO 11 (12-20 (CALC)); CALCULATED LDLCHOLESTEROL 107 mg/dL (62-129 (CALC)); CARBON DIOXIDE 23 mmol/l (22-30); CHLORIDE 112 mmol/l (95-108); CHOLESTEROL HDL RATIO 4.5 (<4.4 (CALC)); CREATININE 0.6 mg/dL (0.5-1.0); GFR > 60 ML/MIN (>=60 (CALC)); GFR FOR AFR.AMER. > 60 ML/MIN (>=60 (CALC)); HDL CHOLESTEROL 41 mg/dL (>=40); MAGNESIUM 1.5 mg/dL (1.6-2.3); POTASSIUM 3.6 mmol/l (3.5-5.1); SGOT/AST 19 u/l (9-36); SODIUM 140 mmol/l (137-146); TOTAL TRIGLYCERIDES 186 mg/dl (30-149); VLDL CHOLESTROL 37 mg/dl (1-41 (CALC))
[2020-02-09 06:31] LABS: BILIRUBIN, TOTAL 0.1 mg/dL (0.0-1.4); TOTAL CHOLESTEROL 185 mg/dl (0-199); TOTAL PROTEIN 5.5 g/dL (6.3-8.2)
[2020-02-09 07:57] VITALS: BP 133/67
[2020-02-09] MEDS ORDERED: CARAFATE1 GM PO (09:33)
[2020-02-09] MEDS ORDERED: METFORMIN500 M2 PO (10:26)
[2020-02-09 11:05] VITALS: BP 121/75
== END 2020-02-09 12:00 | disposition home or self-care (01) ==
LOC: ED 09:48 → ED-I 12:30 → MS2 12:45 → ED 12:45 → MS2 02-09 12:00
PROVIDERS: Family Medicine; Nurse Practitioner; ADMIT Internal Medicine; ATTEND Internal Medicine
DX: K29.60 Other gastritis without bleeding (principal); E11.9 Type 2 diabetes mellitus without complications; I10 Essential (primary) hypertension; K21.9 Gastro-esophageal reflux disease without esophagitis; G40.909 Epilepsy, unspecified, not intractable, without status epilepticus; F32.9 Major depressive disorder, single episode, unspecified; M54.30 Sciatica, unspecified side; Z20.828 Contact with and (suspected) exposure to other viral communicable diseases
CPT/HCPCS: G0378; J1650; S0164

== ENCOUNTER 2020-02-10 22:17 | Emergency (ER) | payer MEDICARE, OTHER ==
[~2020-02-10] VITALS: Ht 160 cm; Wt 63.0 kg
[~2020-02-10 22:17] MED LIST changes: +CARAFATE1 GM PO; +METFORMIN500 M2 PO
[2020-02-10 23:17] LABS: HEMATOCRIT 38.1 % (37.0-47.0); IMMATURE GRANULOCYTES 0.3 % (0.0-5.0); MEAN CELL VOLUME 90.3 fL CALC (80.0-100.0); MEAN CORPUSCULAR HGB 28.4 pG CALC (26.0-32.0); MEAN CORPUSCULAR HGB CONC 31.5 g/dL CAL (32.0-36.0); NEUT# 3.04 thou/uL (2.00-7.15); RED BLOOD COUNT 4.22 mill/uL (4.20-5.60)
[2020-02-10 23:54] LABS: ALBUMIN 4.3 g/dL (3.2-5.0); ALKALINE PHOSPHATASE 92 u/l (38-126); AMYLASE 75 u/l (30-110); ANION GAP 11 (6-22 (CALC)); BILIRUBIN, TOTAL 0.3 mg/dL (0.0-1.4); BUN 12 mg/dL (8-23); BUN/CREATININE RATIO 18 (12-20 (CALC)); CARBON DIOXIDE 26 mmol/l (22-30); CHLORIDE 104 mmol/l (95-108); CREATININE 0.7 mg/dL (0.5-1.0); GFR > 60 ML/MIN (>=60 (CALC)); GFR FOR AFR.AMER. > 60 ML/MIN (>=60 (CALC)); LIPASE 47 u/l (23-300); POTASSIUM 3.7 mmol/l (3.5-5.1); SGOT/AST 35 u/l (9-36); SODIUM 138 mmol/l (137-146); TOTAL PROTEIN 7.4 g/dL (6.3-8.2)
[2020-02-11 00:07] VITALS: BP 138/64
[2020-02-11] MEDS ORDERED: OMEPRAZOLE DR40 MG PO (00:40)
== END 2020-02-11 01:00 | disposition home or self-care (01) ==
LOC: ED 22:17
PROVIDERS: Family Medicine
DX: K29.60 Other gastritis without bleeding (principal); K21.00 Gastro-esophageal reflux disease with esophagitis, without bleeding; F41.9 Anxiety disorder, unspecified; I10 Essential (primary) hypertension; G40.909 Epilepsy, unspecified, not intractable, without status epilepticus
CPT/HCPCS: J2060; S0164

== ENCOUNTER 2020-02-18 18:19 | Emergency (ER) | payer MEDICARE, OTHER ==
[~2020-02-18] VITALS: Ht 160 cm; Wt 65.0 kg
[~2020-02-18 18:19] MED LIST changes: +OMEPRAZOLE DR40 MG PO
[2020-02-18 20:50] VITALS: BP 149/73
[2020-02-18] MEDS ORDERED: ORPHENADRINE100 MG PO (20:52)
[2020-02-18] MEDS ORDERED: PERCOCET 5/325M1 TAB PO (20:52)
== END 2020-02-18 20:59 | disposition home or self-care (01) ==
LOC: ED 18:19
DX: M54.5 Low back pain (principal); G89.29 Other chronic pain; I10 Essential (primary) hypertension; K21.9 Gastro-esophageal reflux disease without esophagitis; G40.909 Epilepsy, unspecified, not intractable, without status epilepticus

== ENCOUNTER 2020-02-18 21:19 | Emergency (ER) | payer MEDICARE, OTHER ==
[~2020-02-18] VITALS: Ht 160 cm; Wt 62.0 kg
[~2020-02-18 21:19] MED LIST changes: +ORPHENADRINE100 MG PO
[2020-02-18 22:18] VITALS: BP 149/70
== END 2020-02-18 22:18 | disposition home or self-care (01) ==
LOC: ED 21:19
DX: M54.5 Low back pain (principal); G89.29 Other chronic pain; I10 Essential (primary) hypertension; K21.9 Gastro-esophageal reflux disease without esophagitis; G40.909 Epilepsy, unspecified, not intractable, without status epilepticus

== ENCOUNTER 2020-03-13 18:05 | Emergency (ER) | payer MEDICARE, OTHER ==
[~2020-03-13] VITALS: Ht 160 cm; Wt 61.3 kg
[2020-03-13 18:42] LABS: HEMATOCRIT 37.2 % (37.0-47.0); HEMOGLOBIN 12.1 g/dl (12.0-16.0); IMMATURE GRANULOCYTES 0.2 % (0.0-5.0); MEAN CELL VOLUME 88.6 fL CALC (80.0-100.0); MEAN CORPUSCULAR HGB 28.8 pG CALC (26.0-32.0); MEAN CORPUSCULAR HGB CONC 32.5 g/dL CAL (32.0-36.0); NEUT# 4.73 thou/uL (2.00-7.15); RED BLOOD COUNT 4.2 mill/uL (4.20-5.60); RED CELL DISTRI WIDTH 14.6 % (11.5-15.5)
[2020-03-13] MEDS ORDERED: ESCITALOPRAM OX10 MG PO (18:48)
[2020-03-13] MEDS ORDERED: METFORMIN500 M2 PO (18:48)
[2020-03-13 19:02] LABS: ALBUMIN 4.6 g/dL (3.2-5.0); ALKALINE PHOSPHATASE 76 u/l (38-126); ANION GAP 12 (6-22 (CALC)); BILIRUBIN, TOTAL 0.4 mg/dL (0.0-1.4); BUN 14 mg/dL (8-23); BUN/CREATININE RATIO 19 (12-20 (CALC)); CARBON DIOXIDE 25 mmol/l (22-30); CHLORIDE 102 mmol/l (95-108); CREATININE 0.7 mg/dL (0.5-1.0); GFR > 60 ML/MIN (>=60 (CALC)); GFR FOR AFR.AMER. > 60 ML/MIN (>=60 (CALC)); LIPASE 47 u/l (23-300); POTASSIUM 3.7 mmol/l (3.5-5.1); SGOT/AST 27 u/l (9-36); SODIUM 137 mmol/l (137-146); TOTAL PROTEIN 7.8 g/dL (6.3-8.2)
[2020-03-13 20:03] VITALS: BP 124/66
== END 2020-03-13 20:09 | disposition home or self-care (01) ==
LOC: ED 18:05
DX: K29.60 Other gastritis without bleeding (principal); K21.9 Gastro-esophageal reflux disease without esophagitis; E11.9 Type 2 diabetes mellitus without complications; I10 Essential (primary) hypertension; G40.909 Epilepsy, unspecified, not intractable, without status epilepticus; Z79.84 Long term (current) use of oral hypoglycemic drugs

== ENCOUNTER 2020-04-10 03:05 | Emergency (ER) | payer MEDICARE, OTHER ==
[~2020-04-10] VITALS: Ht 160 cm; Wt 57.7 kg
[~2020-04-10 03:05] MED LIST changes: +ESCITALOPRAM OX10 MG PO
[2020-04-10 03:54] LABS: HEMATOCRIT 40.9 % (37.0-47.0); IMMATURE GRANULOCYTES 0.2 % (0.0-5.0); MEAN CELL VOLUME 90.3 fL CALC (80.0-100.0); MEAN CORPUSCULAR HGB 28.7 pG CALC (26.0-32.0); MEAN CORPUSCULAR HGB CONC 31.8 g/dL CAL (32.0-36.0); NEUT# 2.84 thou/uL (2.00-7.15); RED BLOOD COUNT 4.53 mill/uL (4.20-5.60); RED CELL DISTRI WIDTH 14.7 % (11.5-15.5)
[2020-04-10 04:04] LABS: ALBUMIN 4.6 g/dL (3.2-5.0); ALKALINE PHOSPHATASE 75 u/l (38-126); AMYLASE 47 u/l (30-110); BUN 12 mg/dL (8-23); BUN/CREATININE RATIO 22 (12-20 (CALC)); CARBON DIOXIDE 24 mmol/l (22-30); CHLORIDE 106 mmol/l (95-108); CREATININE 0.6 mg/dL (0.5-1.0); GFR > 60 ML/MIN (>=60 (CALC)); GFR FOR AFR.AMER. > 60 ML/MIN (>=60 (CALC)); LIPASE 54 u/l (23-300); SGOT/AST 30 u/l (9-36); SODIUM 138 mmol/l (137-146); TOTAL PROTEIN 7.4 g/dL (6.3-8.2)
[2020-04-10 04:20] LABS: ANION GAP 13 (6-22 (CALC)); BILIRUBIN, TOTAL 0.6 mg/dL (0.0-1.4); POTASSIUM 4.6 mmol/l (3.5-5.1)
[2020-04-10 04:35] LABS: URINE BILIRUBIN - DIPSTICK NEGATIVE (NEGATIVE); URINE BLOOD DIPSTICK TRACE-INTACT (NEGATIVE); URINE COLOR YELLOW; URINE GLUCOSE - DIPSTICK NEGATIVE (NEGATIVE); URINE KETONE NEGATIVE (NEGATIVE); URINE LEUK ESTERASE NEGATIVE (NEGATIVE); URINE NITRITE - DIPSTICK NEGATIVE (Negative); URINE PROTEIN - DIPSTICK NEGATIVE (NEG-TRACE); URINE UROBILINOGEN - DIPSTICK 0.2 E.U./dL (0.2)
[2020-04-10] MEDS ORDERED: LISINOPRIL10 MG PO (05:08)
[2020-04-10] MEDS ORDERED: DICYCLOMINE10 MG PO (05:08)
[2020-04-10 06:11] VITALS: BP 156/70
== END 2020-04-10 06:12 | disposition home or self-care (01) ==
LOC: ED 03:05
PROVIDERS: Family Medicine
DX: K29.60 Other gastritis without bleeding (principal); K21.9 Gastro-esophageal reflux disease without esophagitis; I10 Essential (primary) hypertension; E11.9 Type 2 diabetes mellitus without complications; G40.909 Epilepsy, unspecified, not intractable, without status epilepticus; K44.9 Diaphragmatic hernia without obstruction or gangrene; Z79.84 Long term (current) use of oral hypoglycemic drugs; Z20.822 Contact with and (suspected) exposure to COVID-19

== ENCOUNTER 2020-07-09 | Emergency (ER) | payer MEDICARE, OTHER ==
[~2020-07-09] MED LIST changes: +DICYCLOMINE10 MG PO; +LISINOPRIL10 MG PO
[2020-07-09 12:56] LABS: HEMATOCRIT 35.5 % (37.0-47.0); HEMOGLOBIN 11.2 g/dl (12.0-16.0); IMMATURE GRANULOCYTES 0.4 % (0.0-5.0); MEAN CELL VOLUME 93.9 fL CALC (80.0-100.0); MEAN CORPUSCULAR HGB 29.6 pG CALC (26.0-32.0); MEAN CORPUSCULAR HGB CONC 31.5 g/dL CAL (32.0-36.0); NEUT# 3.18 thou/uL (2.00-7.15); RED BLOOD COUNT 3.78 mill/uL (4.20-5.60); RED CELL DISTRI WIDTH 15.9 % (11.5-15.5)
[2020-07-09 13:09] LABS: ALBUMIN 4.2 g/dL (3.2-5.0); ALKALINE PHOSPHATASE 60 u/l (38-126); ANION GAP 17 (6-22 (CALC)); BILIRUBIN, TOTAL 0.4 mg/dL (0.0-1.4); BUN 14 mg/dL (8-23); BUN/CREATININE RATIO 19 (12-20 (CALC)); CARBON DIOXIDE 28 mmol/l (22-30); CHLORIDE 95 mmol/l (95-108); CREATININE 0.8 mg/dL (0.5-1.0); GFR > 60 ML/MIN (>=60 (CALC)); GFR FOR AFR.AMER. > 60 ML/MIN (>=60 (CALC)); POTASSIUM 4.3 mmol/l (3.5-5.1); SGOT/AST 23 u/l (9-36); SODIUM 135 mmol/l (137-146); TOTAL PROTEIN 7.3 g/dL (6.3-8.2)
[2020-07-09 15:29] LABS: URINE BILIRUBIN - DIPSTICK NEGATIVE (NEGATIVE); URINE BLOOD DIPSTICK NEGATIVE (NEGATIVE); URINE COLOR YELLOW; URINE GLUCOSE - DIPSTICK NEGATIVE (NEGATIVE); URINE KETONE NEGATIVE (NEGATIVE); URINE LEUK ESTERASE TRACE (NEGATIVE); URINE PROTEIN - DIPSTICK NEGATIVE (NEG-TRACE); URINE UROBILINOGEN - DIPSTICK 0.2 E.U./dL (0.2)
[2020-07-09 15:30] LABS: URINE NITRITE - DIPSTICK NEGATIVE (Negative)
[2020-07-09] MEDS ORDERED: FIORICET PO (15:46)
[2020-07-18] MEDS ORDERED: TRAMADOL HCL50 MG PO (11:52)
== END 2020-07-09 16:09 | disposition home or self-care (01) ==
DX: R51.9 Headache, unspecified (principal); E11.9 Type 2 diabetes mellitus without complications; I10 Essential (primary) hypertension; G40.909 Epilepsy, unspecified, not intractable, without status epilepticus; K21.9 Gastro-esophageal reflux disease without esophagitis; Z79.84 Long term (current) use of oral hypoglycemic drugs

== ENCOUNTER 2020-07-14 | Emergency (ER) | payer MEDICARE, OTHER ==
[2020-07-14 12:12] LABS: HEMATOCRIT 40.3 % (37.0-47.0); HEMOGLOBIN 12.9 g/dl (12.0-16.0); IMMATURE GRANULOCYTES 1.6 % (0.0-5.0); MEAN CELL VOLUME 94.6 fL CALC (80.0-100.0); MEAN CORPUSCULAR HGB 30.3 pG CALC (26.0-32.0); NEUT# 9.29 thou/uL (2.00-7.15); RED BLOOD COUNT 4.26 mill/uL (4.20-5.60); RED CELL DISTRI WIDTH 16.5 % (11.5-15.5)
[2020-07-14 12:26] LABS: ANION GAP 14 (6-22 (CALC)); BUN 22 mg/dL (8-23); BUN/CREATININE RATIO 27 (12-20 (CALC)); CARBON DIOXIDE 25 mmol/l (22-30); CHLORIDE 97 mmol/l (95-108); CREATININE 0.8 mg/dL (0.5-1.0); GFR > 60 ML/MIN (>=60 (CALC)); GFR FOR AFR.AMER. > 60 ML/MIN (>=60 (CALC)); POTASSIUM 4.6 mmol/l (3.5-5.1); SODIUM 132 mmol/l (137-146)
[2020-07-18] MEDS ORDERED: TRAMADOL HCL50 MG PO (11:52)
== END 2020-07-14 15:48 | disposition home or self-care (01) ==
PROVIDERS: Family Medicine
DX: R51.9 Headache, unspecified (principal); J32.9 Chronic sinusitis, unspecified; E11.9 Type 2 diabetes mellitus without complications; I10 Essential (primary) hypertension; K21.9 Gastro-esophageal reflux disease without esophagitis; G40.909 Epilepsy, unspecified, not intractable, without status epilepticus

== ENCOUNTER 2020-07-16 09:35 | Emergency (ER) | payer MEDICARE, OTHER ==
[2020-07-16] MEDS ORDERED: CLARITIN-D1 TA2 PO (10:34)
[2020-07-16] MEDS ORDERED: AMOX/K CLAV875 M1 PO (10:35)
[2020-07-16] MEDS ORDERED: AZELASTINE0.1 % (10:36)
[2020-07-16 11:45] LABS: HEMOGLOBIN 13.1 g/dl (12.0-16.0); MEAN CELL VOLUME 95.5 fL CALC (80.0-100.0); MEAN CORPUSCULAR HGB 29.8 pG CALC (26.0-32.0); MEAN CORPUSCULAR HGB CONC 31.2 g/dL CAL (32.0-36.0); NEUT# 6.8 thou/uL (2.00-7.15); RED BLOOD COUNT 4.4 mill/uL (4.20-5.60); RED CELL DISTRI WIDTH 16.3 % (11.5-15.5)
[2020-07-16 11:56] LABS: ALKALINE PHOSPHATASE 72 u/l (38-126); ANION GAP 14 (6-22 (CALC)); BILIRUBIN, TOTAL 0.5 mg/dL (0.0-1.4); BUN 22 mg/dL (8-23); BUN/CREATININE RATIO 29 (12-20 (CALC)); CARBON DIOXIDE 29 mmol/l (22-30); CHLORIDE 96 mmol/l (95-108); CREATININE 0.8 mg/dL (0.5-1.0); GFR > 60 ML/MIN (>=60 (CALC)); GFR FOR AFR.AMER. > 60 ML/MIN (>=60 (CALC)); POTASSIUM 4.8 mmol/l (3.5-5.1); SGOT/AST 22 u/l (9-36); SODIUM 134 mmol/l (137-146); TOTAL PROTEIN 8.3 g/dL (6.3-8.2)
[2020-07-16] MEDS ORDERED: LEVAQUIN750 M1 PO (12:19)
[2020-07-16 12:43] VITALS: BP 126/60
[2020-07-18] MEDS ORDERED: TRAMADOL HCL50 MG PO (11:52)
== END 2020-07-16 12:47 | disposition home or self-care (01) ==
LOC: ED 09:35
PROVIDERS: Family Medicine
DX: J32.9 Chronic sinusitis, unspecified (principal); E11.9 Type 2 diabetes mellitus without complications; I10 Essential (primary) hypertension; G40.909 Epilepsy, unspecified, not intractable, without status epilepticus; K21.9 Gastro-esophageal reflux disease without esophagitis

== ENCOUNTER 2020-08-13 12:45 | Emergency (ER) | payer MEDICARE, OTHER ==
[~2020-08-13 12:45] MED LIST changes: +CLARITIN-D1 TA2 PO; +LEVAQUIN750 M1 PO
[2020-08-13 14:58] LABS: HEMATOCRIT 35.6 % (37.0-47.0); HEMOGLOBIN 11.2 g/dl (12.0-16.0); IMMATURE GRANULOCYTES 0.2 % (0.0-5.0); MEAN CORPUSCULAR HGB 30.2 pG CALC (26.0-32.0); MEAN CORPUSCULAR HGB CONC 31.5 g/dL CAL (32.0-36.0); NEUT# 2.56 thou/uL (2.00-7.15); RED BLOOD COUNT 3.71 mill/uL (4.20-5.60); RED CELL DISTRI WIDTH 14.6 % (11.5-15.5)
[2020-08-13 15:11] LABS: ALKALINE PHOSPHATASE 66 u/l (38-126); BILIRUBIN, TOTAL 0.4 mg/dL (0.0-1.4); BUN 13 mg/dL (8-23); BUN/CREATININE RATIO 14 (12-20 (CALC)); CARBON DIOXIDE 25 mmol/l (22-30); CHLORIDE 101 mmol/l (95-108); CREATININE 0.9 mg/dL (0.5-1.0); GFR > 60 ML/MIN (>=60 (CALC)); GFR FOR AFR.AMER. > 60 ML/MIN (>=60 (CALC)); SGOT/AST 22 u/l (9-36); SODIUM 131 mmol/l (137-146)
[2020-08-13 15:13] LABS: ALBUMIN 3.9 g/dL (3.2-5.0); ANION GAP 9 (6-22 (CALC)); POTASSIUM 3.8 mmol/l (3.5-5.1)
[2020-08-13] MEDS ORDERED: AMOX/K CLAV875 M1 PO (15:33)
[2020-08-13] MEDS ORDERED: ALLER-CHLOR4 MG PO (15:33)
[2020-08-13 16:04] VITALS: BP 103/59
== END 2020-08-13 16:04 | disposition home or self-care (01) ==
LOC: ED 12:45
PROVIDERS: Family Medicine
DX: J30.9 Allergic rhinitis, unspecified (principal); R59.1 Generalized enlarged lymph nodes; E11.9 Type 2 diabetes mellitus without complications; I10 Essential (primary) hypertension; K21.9 Gastro-esophageal reflux disease without esophagitis; G40.909 Epilepsy, unspecified, not intractable, without status epilepticus

== ENCOUNTER 2020-08-18 12:52 | Emergency (ER) | payer MEDICARE, OTHER ==
[~2020-08-18] VITALS: Ht 160 cm; Wt 70.0 kg
[~2020-08-18 12:52] MED LIST changes: +ALLER-CHLOR4 MG PO
[2020-08-18 15:00] VITALS: BP 115/78
== END 2020-08-18 15:00 | disposition home or self-care (01) ==
LOC: ED 12:52
DX: J30.9 Allergic rhinitis, unspecified (principal); E11.9 Type 2 diabetes mellitus without complications; I10 Essential (primary) hypertension; G40.909 Epilepsy, unspecified, not intractable, without status epilepticus; K21.9 Gastro-esophageal reflux disease without esophagitis
CPT/HCPCS: J0131

== ENCOUNTER 2020-10-15 06:21 | Emergency (ER) | payer MEDICARE, OTHER ==
[~2020-10-15] VITALS: Ht 160 cm; Wt 56.0 kg
[2020-10-15 07:58] LABS: HEMATOCRIT 36.9 % (37.0-47.0); HEMOGLOBIN 11.4 g/dl (12.0-16.0); IMMATURE GRANULOCYTES 0.1 % (0.0-5.0); MEAN CELL VOLUME 97.1 fL CALC (80.0-100.0); MEAN CORPUSCULAR HGB CONC 30.9 g/dL CAL (32.0-36.0); NEUT# 4.49 thou/uL (2.00-7.15); RED BLOOD COUNT 3.8 mill/uL (4.20-5.60); RED CELL DISTRI WIDTH 13.3 % (11.5-15.5)
[2020-10-15] MEDS ORDERED: FIORICET PO (08:05)
[2020-10-15] MEDS ORDERED: LISINOPRIL10 MG PO (08:05)
[2020-10-15 08:21] LABS: ALBUMIN 3.9 g/dL (3.2-5.0); ALKALINE PHOSPHATASE 63 u/l (38-126); ANION GAP 10 (6-22 (CALC)); BUN 12 mg/dL (8-23); BUN/CREATININE RATIO 17 (12-20 (CALC)); CARBON DIOXIDE 28 mmol/l (22-30); CHLORIDE 101 mmol/l (95-108); CREATININE 0.7 mg/dL (0.5-1.0); GFR > 60 ML/MIN (>=60 (CALC)); GFR FOR AFR.AMER. > 60 ML/MIN (>=60 (CALC)); LIPASE 42 u/l (23-300); SGOT/AST 27 u/l (9-36); SODIUM 135 mmol/l (137-146); TOTAL PROTEIN 6.9 g/dL (6.3-8.2)
[2020-10-15 09:01] LABS: ACT PARTIAL THROMBO TIME 21.9 SECONDS (20.0-32.5); INTERNATIONAL NORMALIZED RATIO 0.9 RATIO (0.7-1.3); PROTHROMBIN TIME 9.9 SECONDS (9.0-12.5)
[2020-10-15 09:46] LABS: URINE BILIRUBIN - DIPSTICK NEGATIVE (NEGATIVE); URINE BLOOD DIPSTICK NEGATIVE (NEGATIVE); URINE COLOR YELLOW; URINE GLUCOSE - DIPSTICK NEGATIVE (NEGATIVE); URINE KETONE NEGATIVE (NEGATIVE); URINE LEUK ESTERASE NEGATIVE (NEGATIVE); URINE PROTEIN - DIPSTICK NEGATIVE (NEG-TRACE); URINE UROBILINOGEN - DIPSTICK 0.2 E.U./dL (0.2)
[2020-10-15 09:47] LABS: URINE NITRITE - DIPSTICK NEGATIVE (Negative)
[2020-10-15 09:59] VITALS: BP 105/55
== END 2020-10-15 10:11 | disposition designated cancer center or children's hospital (05) ==
LOC: ED 06:21
DX: R60.9 Edema, unspecified (principal); E11.69 Type 2 diabetes mellitus with other specified complication; M54.10 Radiculopathy, site unspecified; I10 Essential (primary) hypertension; G40.909 Epilepsy, unspecified, not intractable, without status epilepticus; K21.9 Gastro-esophageal reflux disease without esophagitis; K44.9 Diaphragmatic hernia without obstruction or gangrene
CPT/HCPCS: J0131

== ENCOUNTER 2020-12-02 15:05 | Emergency (ER) | payer MEDICARE, OTHER | END 2020-12-02 15:19 | disposition left against medical advice (07) | LOC: ED 15:05 → LWOBS 15:19 → ED 15:19 | DX: Z91.19 Patient's noncompliance with other medical treatment and regimen (principal) ==

== ENCOUNTER 2020-12-24 11:22 | Emergency (ER) | payer MEDICARE, OTHER ==
[~2020-12-24] VITALS: Ht 160 cm; Wt 57.0 kg
[2020-12-24 12:02] LABS: URINE BILIRUBIN - DIPSTICK NEGATIVE (NEGATIVE); URINE BLOOD DIPSTICK NEGATIVE (NEGATIVE); URINE COLOR YELLOW; URINE GLUCOSE - DIPSTICK NEGATIVE (NEGATIVE); URINE KETONE NEGATIVE (NEGATIVE); URINE LEUK ESTERASE NEGATIVE (NEGATIVE); URINE PROTEIN - DIPSTICK NEGATIVE (NEG-TRACE); URINE UROBILINOGEN - DIPSTICK 0.2 E.U./dL (0.2)
[2020-12-24 12:03] LABS: URINE NITRITE - DIPSTICK NEGATIVE (Negative)
[2020-12-24] MEDS ORDERED: PYRIDIUM200 MG PO (12:20)
[2020-12-24] MEDS ORDERED: HYDROCO/APAP1 TA9 PO (12:20)
[2020-12-24 12:30] VITALS: BP 147/68
== END 2020-12-24 12:30 | disposition home or self-care (01) ==
LOC: ED 11:22
DX: R10.2 Pelvic and perineal pain (principal); E11.9 Type 2 diabetes mellitus without complications; I10 Essential (primary) hypertension; G40.909 Epilepsy, unspecified, not intractable, without status epilepticus; K21.9 Gastro-esophageal reflux disease without esophagitis

== ENCOUNTER 2021-02-14 05:58 | Day surgery (SDC) | payer MEDICARE, OTHER ==
[~2021-02-14] VITALS: Ht 160 cm; Wt 54.4 kg
[~2021-02-14 05:58] MED LIST changes: +PYRIDIUM200 MG PO
[2021-02-14] MEDS ORDERED: ALLEGRA-D 2424 HOUR PO (06:19)
[2021-02-14 08:27] VITALS: BP 116/59
== END 2021-02-14 09:15 | disposition home or self-care (01) ==
LOC: ORM 05:58
PROVIDERS: ATTEND Anesthesiology Pain Medicine
DX: M46.1 Sacroiliitis, not elsewhere classified (principal)
CPT/HCPCS: G0260

== ENCOUNTER 2021-02-25 08:20 | Emergency (ER) | payer MEDICARE, OTHER ==
[~2021-02-25] VITALS: Ht 160 cm; Wt 54.4 kg
[~2021-02-25 08:20] MED LIST changes: +ALLEGRA-D 2424 HOUR PO
[2021-02-25 09:02] LABS: HEMATOCRIT 41.9 % (37.0-47.0); HEMOGLOBIN 13.2 g/dl (12.0-16.0); IMMATURE GRANULOCYTES 2.3 % (0.0-5.0); MEAN CELL VOLUME 92.3 fL CALC (80.0-100.0); MEAN CORPUSCULAR HGB 29.1 pG CALC (26.0-32.0); MEAN CORPUSCULAR HGB CONC 31.5 g/dL CAL (32.0-36.0); NEUT# 6.9 thou/uL (2.00-7.15); RED BLOOD COUNT 4.54 mill/uL (4.20-5.60); RED CELL DISTRI WIDTH 14.6 % (11.5-15.5)
[2021-02-25 09:26] LABS: ALKALINE PHOSPHATASE 78 u/l (38-126); ANION GAP 14 (6-22 (CALC)); BUN 16 mg/dL (8-23); BUN/CREATININE RATIO 22 (12-20 (CALC)); CARBON DIOXIDE 28 mmol/l (22-30); CHLORIDE 100 mmol/l (95-108); CREATININE 0.7 mg/dL (0.5-1.0); GFR > 60 ML/MIN (>=60 (CALC)); GFR FOR AFR.AMER. > 60 ML/MIN (>=60 (CALC)); POTASSIUM 3.9 mmol/l (3.5-5.1); SGOT/AST 24 u/l (9-36); SODIUM 138 mmol/l (137-146); TOTAL PROTEIN 8.1 g/dL (6.3-8.2)
[2021-02-25 09:27] LABS: ALBUMIN 4.7 g/dL (3.2-5.0); BILIRUBIN, TOTAL 0.4 mg/dL (0.0-1.4)
[2021-02-25] MEDS ORDERED: HYDROCO/APAP1 TA9 PO (09:52)
[2021-02-25 10:09] VITALS: BP 125/78
== END 2021-02-25 10:09 | disposition home or self-care (01) ==
LOC: ED 08:20
PROVIDERS: Family Medicine
DX: M54.50 Low back pain, unspecified (principal); I10 Essential (primary) hypertension; E11.9 Type 2 diabetes mellitus without complications; G40.909 Epilepsy, unspecified, not intractable, without status epilepticus; K21.9 Gastro-esophageal reflux disease without esophagitis

== ENCOUNTER 2021-04-27 11:21 | Emergency (ER) | payer MEDICARE, OTHER ==
[~2021-04-27] VITALS: Ht 160 cm; Wt 55.0 kg
[~2021-04-27 11:21] MED LIST changes: +ZESTRIL5 M1 PO
[2021-04-27] MEDS ORDERED: CLOTRIM/BETA EX (14:01)
[2021-04-27] MEDS ORDERED: CITALOPRAM20 M1 PO (14:01)
[2021-04-27] MEDS ORDERED: LYRICA75 MG PO (14:01)
[2021-04-27] MEDS ORDERED: GABAPENTIN300 M2 PO (14:02)
[2021-04-27] MEDS ORDERED: FLEXERIL5 M1 PO (14:03)
[2021-04-27] MEDS ORDERED: TRAZODONE50 MG PO (14:03)
[2021-04-27] MEDS ORDERED: TESSALON PERLE100 MG PO (14:26)
[2021-04-27] MEDS ORDERED: AMOXICILLIN875 MG PO (14:26)
[2021-04-27 14:38] VITALS: BP 131/70
== END 2021-04-27 14:38 | disposition home or self-care (01) ==
LOC: ED 11:21
DX: J40 Bronchitis, not specified as acute or chronic (principal); I10 Essential (primary) hypertension; E11.9 Type 2 diabetes mellitus without complications; G40.909 Epilepsy, unspecified, not intractable, without status epilepticus; K21.9 Gastro-esophageal reflux disease without esophagitis; K44.9 Diaphragmatic hernia without obstruction or gangrene; Z20.822 Contact with and (suspected) exposure to COVID-19

== ENCOUNTER 2021-05-18 14:14 | Emergency (ER) | payer MEDICARE, OTHER ==
[~2021-05-18] VITALS: Ht 160 cm; Wt 52.7 kg
[~2021-05-18 14:14] MED LIST changes: +AMOXICILLIN875 MG PO; +CITALOPRAM20 M1 PO; +CLOTRIM/BETA EX; +FLEXERIL5 M1 PO; +GABAPENTIN300 M2 PO; +LYRICA75 MG PO; +TESSALON PERLE100 MG PO
[2021-05-18] MEDS ORDERED: LEXAPRO10 MG PO (14:55)
[2021-05-18] MEDS ORDERED: CLONAZEPAM1 MG PO (14:59)
[2021-05-18] MEDS ORDERED: MEDDOSEPAK PO (15:11)
[2021-05-18] MEDS ORDERED: ULTRAM50 MG PO (15:11)
[2021-05-18 15:55] VITALS: BP 122/56
== END 2021-05-18 15:55 | disposition home or self-care (01) ==
LOC: ED 14:14
DX: M54.42 Lumbago with sciatica, left side (principal); I10 Essential (primary) hypertension; E11.9 Type 2 diabetes mellitus without complications; G40.909 Epilepsy, unspecified, not intractable, without status epilepticus; K21.9 Gastro-esophageal reflux disease without esophagitis

== ENCOUNTER 2021-06-04 13:12 | Emergency (ER) | payer MEDICARE, OTHER ==
[~2021-06-04 13:12] MED LIST changes: +CLONAZEPAM1 MG PO; +LEXAPRO10 MG PO; +ULTRAM50 MG PO
[2021-06-05] MEDS ORDERED: EFFEXOR XR75 MG/CAP PO (07:28)
== END 2021-06-04 14:38 | disposition left against medical advice (07) ==
LOC: ED 13:12 → LWOBS 14:37
DX: Z53.21 Procedure and treatment not carried out due to patient leaving prior to being seen by health care provider (principal)

== ENCOUNTER 2021-06-05 07:07 | Emergency (ER) | payer MEDICARE, OTHER ==
[~2021-06-05] VITALS: Ht 160 cm; Wt 53.0 kg
[2021-06-05] MEDS ORDERED: EFFEXOR XR75 MG/CAP PO (07:28)
[2021-06-05 08:15] VITALS: BP 122/74
== END 2021-06-05 08:38 | disposition home or self-care (01) ==
LOC: ED 07:07
DX: M54.42 Lumbago with sciatica, left side (principal); I10 Essential (primary) hypertension; G40.909 Epilepsy, unspecified, not intractable, without status epilepticus; K21.9 Gastro-esophageal reflux disease without esophagitis

== ENCOUNTER 2021-07-04 06:53 | Day surgery (SDC) | payer MEDICARE, OTHER ==
[~2021-07-04] VITALS: Ht 160 cm; Wt 55.8 kg
[~2021-07-04 06:53] MED LIST changes: +EFFEXOR XR75 MG/CAP PO
[2021-07-04 09:05] VITALS: BP 122/56
== END 2021-07-04 09:14 | disposition home or self-care (01) ==
LOC: ORM 06:53
PROVIDERS: ATTEND Physical Medicine & Rehabilitation Pain Medicine
DX: M46.1 Sacroiliitis, not elsewhere classified (principal); M47.816 Spondylosis without myelopathy or radiculopathy, lumbar region; G89.4 Chronic pain syndrome
CPT/HCPCS: Q9967

== ENCOUNTER 2021-08-17 08:08 | Emergency (ER) | payer MEDICARE, OTHER ==
[~2021-08-17] VITALS: Ht 160 cm; Wt 53.6 kg
[2021-08-17] VITALS (8 sets, daily range): BP systolic 130–153; BP diastolic 69–86
[2021-08-17] MEDS ORDERED: LORTAB 5/3255 MG PO (08:30)
[2021-08-17] MEDS ORDERED: TIZANIDINE2 MG PO (08:31)
[2021-08-17] MEDS ORDERED: MEDDOSEPAK PO (09:11)
== END 2021-08-17 10:20 | disposition home or self-care (01) ==
LOC: ED 08:08
DX: M16.0 Bilateral primary osteoarthritis of hip (principal); I10 Essential (primary) hypertension; E11.9 Type 2 diabetes mellitus without complications; G40.909 Epilepsy, unspecified, not intractable, without status epilepticus; K21.9 Gastro-esophageal reflux disease without esophagitis

== ENCOUNTER 2021-08-19 15:15 | Emergency (ER) | payer MEDICARE, OTHER ==
[~2021-08-19] VITALS: Ht 160 cm; Wt 59.0 kg
[~2021-08-19 15:15] MED LIST changes: +LORTAB 5/3255 MG PO; +TIZANIDINE2 MG PO
[2021-08-19 16:23] LABS: HEMATOCRIT 38.7 % (37.0-47.0); HEMOGLOBIN 12.1 g/dl (12.0-16.0); IMMATURE GRANULOCYTES 0.2 % (0.0-5.0); MEAN CELL VOLUME 91.9 fL CALC (80.0-100.0); MEAN CORPUSCULAR HGB 28.7 pG CALC (26.0-32.0); MEAN CORPUSCULAR HGB CONC 31.3 g/dL CAL (32.0-36.0); NEUT# 2.96 thou/uL (2.00-7.15); RED BLOOD COUNT 4.21 mill/uL (4.20-5.60); RED CELL DISTRI WIDTH 14.3 % (11.5-15.5)
[2021-08-19 16:37] LABS: ALBUMIN 4.3 g/dL (3.2-5.0); ALKALINE PHOSPHATASE 78 u/l (38-126); ANION GAP 11 (6-22 (CALC)); BILIRUBIN, TOTAL 0.3 mg/dL (0.0-1.4); BUN 13 mg/dL (8-23); BUN/CREATININE RATIO 15 (12-20 (CALC)); CARBON DIOXIDE 29 mmol/l (22-30); CHLORIDE 101 mmol/l (95-108); CREATININE 0.9 mg/dL (0.5-1.0); ETHYL ALCOHOL 0 mg/dl (0-30); GFR > 60 ML/MIN (>=60 (CALC)); GFR FOR AFR.AMER. > 60 ML/MIN (>=60 (CALC)); LIPASE 28 u/l (23-300); POTASSIUM 4.5 mmol/l (3.5-5.1); SGOT/AST 25 u/l (9-36); SODIUM 136 mmol/l (137-146); TOTAL PROTEIN 7.5 g/dL (6.3-8.2)
[2021-08-19 16:38] LABS: ACT PARTIAL THROMBO TIME 22.5 SECONDS (20.0-32.5); PROTHROMBIN TIME 10.6 SECONDS (9.0-12.5)
[2021-08-19 18:38] VITALS: BP 125/72
== END 2021-08-19 18:59 | disposition home or self-care (01) ==
LOC: ED 15:15
DX: R07.9 Chest pain, unspecified (principal); F41.9 Anxiety disorder, unspecified; I10 Essential (primary) hypertension; E11.9 Type 2 diabetes mellitus without complications; G40.909 Epilepsy, unspecified, not intractable, without status epilepticus; K21.9 Gastro-esophageal reflux disease without esophagitis; Z20.822 Contact with and (suspected) exposure to COVID-19

== ENCOUNTER 2021-09-02 15:51 | Emergency (ER) | payer MEDICARE, OTHER ==
[2021-09-02] VITALS (9 sets, daily range): BP systolic 122–145; BP diastolic 66–77
[~2021-09-02] VITALS: Ht 160 cm; Wt 54.5 kg
[2021-09-02] MEDS ORDERED: CYCLOBENZAPRINE10 MG PO (18:12)
[2021-09-02] MEDS ORDERED: ULTRAM50 M1 PO (18:12)
== END 2021-09-02 18:40 | disposition home or self-care (01) ==
LOC: ED 15:51
DX: M79.661 Pain in right lower leg (principal); E11.9 Type 2 diabetes mellitus without complications; I10 Essential (primary) hypertension; G40.909 Epilepsy, unspecified, not intractable, without status epilepticus

== ENCOUNTER 2021-10-12 09:12 | Emergency (ER) | payer MEDICARE, OTHER ==
[~2021-10-12] VITALS: Ht 160 cm; Wt 52.0 kg
[~2021-10-12 09:12] MED LIST changes: +CYCLOBENZAPRINE10 MG PO
[2021-10-12 10:18] LABS: HEMATOCRIT 38.2 % (37.0-47.0); HEMOGLOBIN 12.1 g/dl (12.0-16.0); IMMATURE GRANULOCYTES 0.2 % (0.0-5.0); MEAN CORPUSCULAR HGB 28.8 pG CALC (26.0-32.0); MEAN CORPUSCULAR HGB CONC 31.7 g/dL CAL (32.0-36.0); NEUT# 1.79 thou/uL (2.00-7.15); RED BLOOD COUNT 4.2 mill/uL (4.20-5.60); RED CELL DISTRI WIDTH 13.8 % (11.5-15.5)
[2021-10-12 10:47] LABS: ALBUMIN 4.3 g/dL (3.2-5.0); ALKALINE PHOSPHATASE 80 u/l (38-126); AMYLASE 75 u/l (30-110); ANION GAP 10 (6-22 (CALC)); BUN 11 mg/dL (8-23); BUN/CREATININE RATIO 14 (12-20 (CALC)); CARBON DIOXIDE 28 mmol/l (22-30); CHLORIDE 98 mmol/l (95-108); CREATININE 0.8 mg/dL (0.5-1.0); GFR FOR AFR.AMER. > 60 ML/MIN (>=60 (CALC)); GFR OTHER RACES > 60 ML/MIN (>=60 (CALC)); LIPASE 27 u/l (23-300); POTASSIUM 4.4 mmol/l (3.5-5.1); SGOT/AST 24 u/l (9-36); SODIUM 132 mmol/l (137-146); TOTAL PROTEIN 7.3 g/dL (6.3-8.2)
[2021-10-12 10:53] LABS: BILIRUBIN, TOTAL 0.2 mg/dL (0.0-1.4)
[2021-10-12 10:57] LABS: MYOGLOBIN 23 ng/mL (0 - 62)
[2021-10-12 13:30] VITALS: BP 128/68
[2021-10-12 13:30] LABS: URINE BILIRUBIN - DIPSTICK NEGATIVE (NEGATIVE); URINE BLOOD DIPSTICK NEGATIVE (NEGATIVE); URINE COLOR YELLOW; URINE GLUCOSE - DIPSTICK NEGATIVE (NEGATIVE); URINE KETONE NEGATIVE (NEGATIVE); URINE LEUK ESTERASE NEGATIVE (NEGATIVE); URINE PROTEIN - DIPSTICK NEGATIVE (NEG-TRACE); URINE SPECIFIC GRAVITY <=1.005; URINE UROBILINOGEN - DIPSTICK 0.2 E.U./dL (0.2)
[2021-10-12 13:31] LABS: URINE NITRITE - DIPSTICK NEGATIVE (Negative)
[2021-10-12] MEDS ORDERED: PREVACID30 M3 PO (13:34)
[2021-10-12] MEDS ORDERED: MIRALAX17 GM PO (13:34)
[2021-10-12] MEDS ORDERED: ULTRAM50 M1 PO (13:40)
[2021-10-15] MEDS ORDERED: AMBIEN10 MG PO (13:21)
[2021-10-15] MEDS ORDERED: D3 50005000 UNIT PO (13:22)
[2021-10-15] MEDS ORDERED: B121000 MC1 PO (13:22)
[2021-10-15] MEDS ORDERED: MULTI VIT PO (13:22)
[2021-10-15] MEDS ORDERED: CARAFATE PO (13:23)
== END 2021-10-12 14:05 | disposition home or self-care (01) ==
LOC: ED 09:12
PROVIDERS: Emergency Medicine
DX: K29.70 Gastritis, unspecified, without bleeding (principal); K59.00 Constipation, unspecified; I10 Essential (primary) hypertension; E11.9 Type 2 diabetes mellitus without complications; G40.909 Epilepsy, unspecified, not intractable, without status epilepticus; K21.9 Gastro-esophageal reflux disease without esophagitis; K44.9 Diaphragmatic hernia without obstruction or gangrene; F41.9 Anxiety disorder, unspecified
CPT/HCPCS: Q9967; S0164

== ENCOUNTER 2021-11-07 07:02 | Day surgery (SDC) | payer MEDICARE, OTHER ==
[~2021-11-07] VITALS: Ht 160 cm; Wt 52.2 kg
[~2021-11-07 07:02] MED LIST changes: +AMBIEN10 MG PO; +B121000 MC1 PO; +CARAFATE PO; +D3 50005000 UNIT PO; +MIRALAX17 GM PO; +MULTI VIT PO; +PREVACID30 M3 PO
[2021-11-07 09:42] VITALS: BP 103/61
== END 2021-11-07 09:42 | disposition home or self-care (01) ==
LOC: ORM 07:02
PROVIDERS: ATTEND Physical Medicine & Rehabilitation Pain Medicine
DX: M70.72 Other bursitis of hip, left hip (principal); M70.71 Other bursitis of hip, right hip; M25.552 Pain in left hip; M25.551 Pain in right hip
CPT/HCPCS: J3490; Q9967

== ENCOUNTER 2021-12-13 07:47 | Day surgery (SDC) | payer MEDICARE, OTHER ==
[~2021-12-13] VITALS: Ht 160 cm; Wt 52.2 kg
[2021-12-13 11:40] VITALS: BP 136/64
== END 2021-12-13 11:21 | disposition home or self-care (01) ==
LOC: ENDO 07:47 → ORM 09:40 → ENDO 11:15
PROVIDERS: ATTEND Surgery
PROC: 0DB78ZX Excision of Stomach, Pylorus, Via Natural or Artificial Opening Endoscopic, Diagnostic (ICD-10-PCS; principal; 2021-12-13)
DX: K29.70 Gastritis, unspecified, without bleeding (principal); K31.9 Disease of stomach and duodenum, unspecified; I10 Essential (primary) hypertension; Z80.0 Family history of malignant neoplasm of digestive organs

== ENCOUNTER 2022-01-18 07:08 | Emergency (ER) | payer MEDICARE, OTHER ==
[~2022-01-18] VITALS: Ht 160 cm; Wt 52.0 kg
[2022-01-18 07:15] VITALS: BP 143/76
[2022-01-18 07:31] VITALS: BP 157/85
[2022-01-18] MEDS ORDERED: PERCOCET 5/325M1 TAB PO (07:44)
[2022-01-18] MEDS ORDERED: PREDNISONE50 MG PO (07:44)
[2022-01-18 08:00] VITALS: BP 112/70
[2022-01-18 08:22] VITALS: BP 112/70
== END 2022-01-18 08:30 | disposition home or self-care (01) ==
LOC: ED 07:08
DX: M79.604 Pain in right leg (principal); I10 Essential (primary) hypertension; E11.9 Type 2 diabetes mellitus without complications; G40.909 Epilepsy, unspecified, not intractable, without status epilepticus; K21.9 Gastro-esophageal reflux disease without esophagitis; F41.9 Anxiety disorder, unspecified

== ENCOUNTER 2022-02-16 12:16 | Emergency (ER) | payer MEDICARE, OTHER ==
[~2022-02-16] VITALS: Ht 160 cm; Wt 53.0 kg
[2022-02-16] MEDS ORDERED: DOXY-CAPS100 MG PO (13:23)
[2022-02-16] MEDS ORDERED: PREDNISONE50 MG PO (13:23)
[2022-02-16 13:47] VITALS: BP 123/91
[2022-02-18] MEDS ORDERED: AMOX/K CLAV875 M1 PO (15:36)
== END 2022-02-16 13:50 | disposition home or self-care (01) ==
LOC: ED 12:16
DX: J32.9 Chronic sinusitis, unspecified (principal); I10 Essential (primary) hypertension; E11.9 Type 2 diabetes mellitus without complications; G40.909 Epilepsy, unspecified, not intractable, without status epilepticus; K21.9 Gastro-esophageal reflux disease without esophagitis; F41.9 Anxiety disorder, unspecified

== ENCOUNTER → 2022-02-18 | Emergency (ER) | payer MEDICARE, OTHER ==
[~2022-02-18] VITALS: Ht 160 cm; Wt 54.0 kg
[~2022-02-18] MED LIST changes: +DOXY-CAPS100 MG PO
[2022-02-18 11:43] LABS: HEMATOCRIT 34.6 % (37.0-47.0); HEMOGLOBIN 11.1 g/dl (12.0-16.0); IMMATURE GRANULOCYTES 0.4 % (0.0-5.0); MEAN CELL VOLUME 90.3 fL CALC (80.0-100.0); MEAN CORPUSCULAR HGB CONC 32.1 g/dL CAL (32.0-36.0); NEUT# 3.46 thou/uL (2.00-7.15); RED BLOOD COUNT 3.83 mill/uL (4.20-5.60); RED CELL DISTRI WIDTH 15.2 % (11.5-15.5)
[2022-02-18 12:05] LABS: ALBUMIN 4.1 g/dL (3.2-5.0); ALKALINE PHOSPHATASE 73 u/l (38-126); BUN 15 mg/dL (8-23); BUN/CREATININE RATIO 19 (12-20 (CALC)); CHLORIDE 106 mmol/l (95-108); CREATININE 0.8 mg/dL (0.5-1.0); GFR FOR AFR.AMER. > 60 ML/MIN (>=60 (CALC)); GFR OTHER RACES > 60 ML/MIN (>=60 (CALC)); POTASSIUM 3.9 mmol/l (3.5-5.1); SGOT/AST 34 u/l (9-36); SODIUM 137 mmol/l (137-146); TOTAL PROTEIN 6.9 g/dL (6.3-8.2)
[2022-02-18 12:14] LABS: ANION GAP 13 (6-22 (CALC)); BILIRUBIN, TOTAL 0.1 mg/dL (0.0-1.4); CARBON DIOXIDE 22 mmol/l (22-30)
[2022-02-18 16:46] VITALS: BP 133/70
== END | disposition home or self-care (01) ==
LOC: ED 10:53
PROVIDERS: Family Medicine
DX: R07.9 Chest pain, unspecified (principal); I10 Essential (primary) hypertension; E11.9 Type 2 diabetes mellitus without complications; G40.909 Epilepsy, unspecified, not intractable, without status epilepticus; K21.9 Gastro-esophageal reflux disease without esophagitis; F41.9 Anxiety disorder, unspecified

== ENCOUNTER 2022-03-06 06:50 | Day surgery (SDC) | payer MEDICARE, OTHER ==
[~2022-03-06] VITALS: Ht 160 cm; Wt 53.5 kg
[2022-03-06] MEDS ORDERED: TRAMADOL HCL50 MG PO (07:23)
[2022-03-06 08:44] VITALS: BP 119/67
== END 2022-03-06 08:40 | disposition home or self-care (01) ==
LOC: ORM 06:50
PROVIDERS: ATTEND Physical Medicine & Rehabilitation Pain Medicine
DX: M46.1 Sacroiliitis, not elsewhere classified (principal); G89.4 Chronic pain syndrome; M47.816 Spondylosis without myelopathy or radiculopathy, lumbar region; M54.16 Radiculopathy, lumbar region; M25.552 Pain in left hip
CPT/HCPCS: J3490

== ENCOUNTER 2022-03-16 19:00 | Emergency (ER) | payer MEDICARE, OTHER ==
[~2022-03-16] VITALS: Ht 160 cm; Wt 53.6 kg
[2022-03-16 19:29] VITALS: BP 106/60
[2022-03-16 19:46] VITALS: BP 114/61
[2022-03-16 20:58] VITALS: BP 114/61
== END 2022-03-16 21:16 | disposition home or self-care (01) ==
LOC: ED 19:00
DX: M54.50 Low back pain, unspecified (principal); G89.29 Other chronic pain; E11.9 Type 2 diabetes mellitus without complications; I10 Essential (primary) hypertension; G40.909 Epilepsy, unspecified, not intractable, without status epilepticus

== ENCOUNTER 2022-03-17 17:01 | Emergency (ER) | payer MEDICARE, OTHER ==
[~2022-03-17] VITALS: Ht 160 cm; Wt 53.6 kg
[2022-03-17 18:25] VITALS: BP 114/66
[2022-03-18] MEDS ORDERED: MECLIZINE 2525 MG PO (13:45)
[2022-03-18] MEDS ORDERED: ONDANSETRON4 MG PO (13:48)
== END 2022-03-17 18:50 | disposition home or self-care (01) ==
LOC: ED 17:01
DX: S06.0X0A Concussion without loss of consciousness, initial encounter (principal); E11.9 Type 2 diabetes mellitus without complications; I10 Essential (primary) hypertension; G40.909 Epilepsy, unspecified, not intractable, without status epilepticus; K21.9 Gastro-esophageal reflux disease without esophagitis; F41.9 Anxiety disorder, unspecified; W22.09XA Striking against other stationary object, initial encounter; Y92.003 Bedroom of unspecified non-institutional (private) residence as the place of occurrence of the external cause

== ENCOUNTER 2022-03-18 08:45 | Emergency (ER) | payer MEDICARE, OTHER ==
[~2022-03-18] VITALS: Ht 160 cm; Wt 53.5 kg
[2022-03-18] VITALS (13 sets, daily range): BP systolic 122–149; BP diastolic 66–91
[2022-03-18 11:31] LABS: HEMATOCRIT 36.2 % (37.0-47.0); HEMOGLOBIN 11.7 g/dl (12.0-16.0); IMMATURE GRANULOCYTES 0.3 % (0.0-5.0); MEAN CELL VOLUME 88.9 fL CALC (80.0-100.0); MEAN CORPUSCULAR HGB 28.7 pG CALC (26.0-32.0); MEAN CORPUSCULAR HGB CONC 32.3 g/dL CAL (32.0-36.0); NEUT# 2.88 thou/uL (2.00-7.15); RED BLOOD COUNT 4.07 mill/uL (4.20-5.60); RED CELL DISTRI WIDTH 14.9 % (11.5-15.5)
[2022-03-18 11:44] LABS: ALBUMIN 4.2 g/dL (3.2-5.0); ALKALINE PHOSPHATASE 82 u/l (38-126); ANION GAP 10 (6-22 (CALC)); BILIRUBIN, TOTAL 0.1 mg/dL (0.0-1.4); BUN 8 mg/dL (8-23); BUN/CREATININE RATIO 11 (12-20 (CALC)); CARBON DIOXIDE 26 mmol/l (22-30); CHLORIDE 106 mmol/l (95-108); CREATININE 0.8 mg/dL (0.5-1.0); GFR FOR AFR.AMER. > 60 ML/MIN (>=60 (CALC)); GFR OTHER RACES > 60 ML/MIN (>=60 (CALC)); LIPASE 32 u/l (23-300); POTASSIUM 3.7 mmol/l (3.5-5.1); SGOT/AST 23 u/l (9-36); SODIUM 138 mmol/l (137-146)
[2022-03-18] MEDS ORDERED: MECLIZINE 2525 MG PO (13:45)
[2022-03-18] MEDS ORDERED: ONDANSETRON4 MG PO (13:48)
== END 2022-03-18 14:32 | disposition home or self-care (01) ==
LOC: ED 08:45
PROVIDERS: Family Medicine
DX: S06.0X0A Concussion without loss of consciousness, initial encounter (principal); I10 Essential (primary) hypertension; E11.9 Type 2 diabetes mellitus without complications; G40.909 Epilepsy, unspecified, not intractable, without status epilepticus; W22.09XA Striking against other stationary object, initial encounter

== ENCOUNTER 2022-03-22 13:29 | Emergency (ER) | payer MEDICARE, OTHER ==
[~2022-03-22] VITALS: Ht 160 cm; Wt 53.6 kg
[~2022-03-22 13:29] MED LIST changes: +MECLIZINE 2525 MG PO; +ONDANSETRON4 MG PO
[2022-03-22] MEDS ORDERED: REGLAN10 MG PO (14:07)
[2022-03-22 14:12] VITALS: BP 150/77
== END 2022-03-22 14:20 | disposition home or self-care (01) ==
LOC: ED 13:29
DX: R51.9 Headache, unspecified (principal); R11.0 Nausea; I10 Essential (primary) hypertension; E11.9 Type 2 diabetes mellitus without complications; G40.909 Epilepsy, unspecified, not intractable, without status epilepticus; M54.50 Low back pain, unspecified; G89.29 Other chronic pain; G43.909 Migraine, unspecified, not intractable, without status migrainosus; Z79.899 Other long term (current) drug therapy

== ENCOUNTER 2022-03-23 07:45 | Observation (INO) | payer MEDICARE, OTHER ==
[~2022-03-23] VITALS: Ht 160 cm; Wt 53.0 kg
[2022-03-23] VITALS (23 sets, daily range): BP systolic 117–178; BP diastolic 56–91
[~2022-03-23 07:45] MED LIST changes: +REGLAN10 MG PO
[2022-03-23 08:37] LABS: HEMATOCRIT 36.7 % (37.0-47.0); HEMOGLOBIN 12.1 g/dl (12.0-16.0); IMMATURE GRANULOCYTES 0.2 % (0.0-5.0); MEAN CELL VOLUME 88.9 fL CALC (80.0-100.0); MEAN CORPUSCULAR HGB 29.3 pG CALC (26.0-32.0); NEUT# 7.39 thou/uL (2.00-7.15); RED BLOOD COUNT 4.13 mill/uL (4.20-5.60); RED CELL DISTRI WIDTH 15.7 % (11.5-15.5)
[2022-03-23 08:41] LABS: GFR FOR AFR.AMER. > 60 ML/MIN (>=60 (CALC)); GFR OTHER RACES > 60 ML/MIN (>=60 (CALC))
[2022-03-23 08:55] LABS: ALBUMIN 4.8 g/dL (3.2-5.0); ALKALINE PHOSPHATASE 55 u/l (38-126); BUN 12 mg/dL (8-23); BUN/CREATININE RATIO 17 (12-20 (CALC)); CARBON DIOXIDE 24 mmol/l (22-30); CHLORIDE 103 mmol/l (95-108); CREATININE 0.7 mg/dL (0.5-1.0); GFR FOR AFR.AMER. > 60 ML/MIN (>=60 (CALC)); GFR OTHER RACES > 60 ML/MIN (>=60 (CALC)); SODIUM 136 mmol/l (137-146); TOTAL PROTEIN 8.2 g/dL (6.3-8.2)
[2022-03-23 08:57] LABS: ANION GAP 13 (6-22 (CALC)); POTASSIUM 4.2 mmol/l (3.5-5.1)
[2022-03-23 08:57] LABS: INTERNATIONAL NORMALIZED RATIO 1.1 RATIO (0.7-1.3); PROTHROMBIN TIME 10.6 SECONDS (9.0-12.5)
[2022-03-23 08:58] LABS: BILIRUBIN, TOTAL 0.7 mg/dL (0.0-1.4); SGOT/AST 47 u/l (9-36)
[2022-03-23 11:24] LABS: URINE BILIRUBIN - DIPSTICK NEGATIVE (NEGATIVE); URINE BLOOD DIPSTICK NEGATIVE (NEGATIVE); URINE COLOR YELLOW; URINE GLUCOSE - DIPSTICK NEGATIVE (NEGATIVE); URINE KETONE NEGATIVE (NEGATIVE); URINE LEUK ESTERASE NEGATIVE (NEGATIVE); URINE NITRITE - DIPSTICK NEGATIVE (Negative); URINE PH 6.5 (4.5-8.0); URINE PROTEIN - DIPSTICK NEGATIVE (NEG-TRACE); URINE UROBILINOGEN - DIPSTICK 0.2 E.U./dL (0.2)
[2022-03-24] VITALS: BP 144/70
[2022-03-24 03:29] VITALS: BP 140/56
[2022-03-24 04:00] VITALS: BP 140/56
[2022-03-24 06:26] VITALS: BP 140/56
[2022-03-24 11:07] VITALS: BP 140/56
[2022-03-24] MEDS ORDERED: TRAZODONE100 MG PO (13:28)
== END 2022-03-24 14:27 | disposition home or self-care (01) ==
LOC: ED 07:45 → ED-I 10:55 → ED 11:43 → MS2 11:44
PROVIDERS: Family Medicine; ADMIT Internal Medicine; ATTEND Internal Medicine
DX: R51.9 Headache, unspecified (principal); R53.1 Weakness; R42 Dizziness and giddiness; R26.89 Other abnormalities of gait and mobility; I10 Essential (primary) hypertension; E11.9 Type 2 diabetes mellitus without complications; G40.909 Epilepsy, unspecified, not intractable, without status epilepticus; K21.9 Gastro-esophageal reflux disease without esophagitis; F41.9 Anxiety disorder, unspecified

== ENCOUNTER 2022-04-09 09:09 | Emergency (ER) | payer MEDICARE, OTHER ==
[2022-04-09] VITALS (8 sets, daily range): BP systolic 137–169; BP diastolic 55–94
[~2022-04-09] VITALS: Ht 160 cm; Wt 52.0 kg
[~2022-04-09 09:09] MED LIST changes: +TRAZODONE100 MG PO
[2022-04-09] MEDS ORDERED: ROBITUSSIN AC10 ML PO (10:12)
[2022-04-09] MEDS ORDERED: CLARITIN10 M2 PO (10:12)
[2022-04-09] MEDS ORDERED: AMOXICILLIN500 MG PO (10:12)
== END 2022-04-09 11:13 | disposition home or self-care (01) ==
LOC: ED 09:09
DX: J02.9 Acute pharyngitis, unspecified (principal); I10 Essential (primary) hypertension; G40.909 Epilepsy, unspecified, not intractable, without status epilepticus; K21.9 Gastro-esophageal reflux disease without esophagitis; Z20.822 Contact with and (suspected) exposure to COVID-19

== ENCOUNTER 2022-04-13 14:37 | Observation (INO) | payer MEDICARE, OTHER ==
[2022-04-13] VITALS (14 sets, daily range): BP systolic 56–145; BP diastolic 35–72
[~2022-04-13] VITALS: Ht 160 cm; Wt 52.0 kg
[~2022-04-13 14:37] MED LIST changes: +AMOXICILLIN500 MG PO; +CLARITIN10 M2 PO; +ROBITUSSIN AC10 ML PO
[2022-04-13 16:13] LABS: BASO% 0.2 % (0-3); HEMATOCRIT 34.4 % (37.0-47.0); HEMOGLOBIN 11.5 g/dl (12.0-16.0); IMMATURE GRANULOCYTES 0.2 % (0.0-5.0); LYMPH% 21.2 % (15-41); MEAN CELL VOLUME 88.7 fL CALC (80.0-100.0); MEAN CORPUSCULAR HGB 29.6 pG CALC (26.0-32.0); MEAN CORPUSCULAR HGB CONC 33.4 g/dL CAL (32.0-36.0); MONO% 5.4 % (2-13); NEUT# 3.51 thou/uL (2.00-7.15); RED BLOOD COUNT 3.88 mill/uL (4.20-5.60); RED CELL DISTRI WIDTH 15.8 % (11.5-15.5)
[2022-04-13 16:27] LABS: ALBUMIN 4.1 g/dL (3.2-5.0); ALKALINE PHOSPHATASE 75 u/l (38-126); BUN 9 mg/dL (8-23); BUN/CREATININE RATIO 13 (12-20 (CALC)); CARBON DIOXIDE 25 mmol/l (22-30); CHLORIDE 104 mmol/l (95-108); CREATININE 0.7 mg/dL (0.5-1.0); GFR FOR AFR.AMER. > 60 ML/MIN (>=60 (CALC)); GFR OTHER RACES > 60 ML/MIN (>=60 (CALC)); SGOT/AST 74 u/l (9-36); SODIUM 136 mmol/l (137-146); TOTAL PROTEIN 7.2 g/dL (6.3-8.2)
[2022-04-13 16:28] LABS: ANION GAP 10 (6-22 (CALC)); POTASSIUM 3.2 mmol/l (3.5-5.1)
[2022-04-13] MEDS ORDERED: VENTOLIN HF1 IN (17:27)
[2022-04-13] MEDS ORDERED: PROBIOTIC DAILY1 CAP (17:31)
[2022-04-14 00:09] VITALS: BP 114/61
[2022-04-14 04:38] VITALS: BP 122/79
[2022-04-14 05:25] LABS: HEMATOCRIT 29.8 % (37.0-47.0); HEMOGLOBIN 10.1 g/dl (12.0-16.0); IMMATURE GRANULOCYTES 0.5 % (0.0-5.0); LYMPH% 29.9 % (15-41); MEAN CELL VOLUME 87.9 fL CALC (80.0-100.0); MEAN CORPUSCULAR HGB 29.8 pG CALC (26.0-32.0); MEAN CORPUSCULAR HGB CONC 33.9 g/dL CAL (32.0-36.0); NEUT# 3.92 thou/uL (2.00-7.15); NEUT% 63.6 % (42-76); RED BLOOD COUNT 3.39 mill/uL (4.20-5.60); RED CELL DISTRI WIDTH 15.8 % (11.5-15.5)
[2022-04-14 05:40] LABS: ALBUMIN 3.5 g/dL (3.2-5.0); ALKALINE PHOSPHATASE 65 u/l (38-126); BUN 7 mg/dL (8-23); BUN/CREATININE RATIO 11 (12-20 (CALC)); CARBON DIOXIDE 27 mmol/l (22-30); CHLORIDE 104 mmol/l (95-108); CREATININE 0.6 mg/dL (0.5-1.0); GFR FOR AFR.AMER. > 60 ML/MIN (>=60 (CALC)); GFR OTHER RACES > 60 ML/MIN (>=60 (CALC)); SGOT/AST 51 u/l (9-36); SODIUM 135 mmol/l (137-146)
[2022-04-14 05:42] LABS: ANION GAP 8 (6-22 (CALC))
[2022-04-14 05:49] LABS: POTASSIUM 4.4 mmol/l (3.5-5.1)
[2022-04-14 07:09] VITALS: BP 166/86
[2022-04-14 09:50] VITALS: BP 132/71
[2022-04-14 11:54] VITALS: BP 142/79
[2022-04-14 15:13] VITALS: BP 121/75
== END 2022-04-14 16:03 | disposition home or self-care (01) ==
LOC: ED 14:37 → ED-I 17:00 → ED 17:14 → MS2 17:15
PROVIDERS: Family Medicine; ADMIT Internal Medicine; ATTEND Internal Medicine
DX: R07.89 Other chest pain (principal); R51.9 Headache, unspecified; I10 Essential (primary) hypertension; E11.9 Type 2 diabetes mellitus without complications; G40.909 Epilepsy, unspecified, not intractable, without status epilepticus; K21.9 Gastro-esophageal reflux disease without esophagitis; F41.9 Anxiety disorder, unspecified; F32.A Depression, unspecified; Z20.822 Contact with and (suspected) exposure to COVID-19

== ENCOUNTER 2022-04-20 09:07 | Emergency (ER) | payer MEDICARE, OTHER ==
[~2022-04-20] VITALS: Ht 160 cm; Wt 52.1 kg
[~2022-04-20 09:07] MED LIST changes: +PROBIOTIC DAILY1 CAP; +VENTOLIN HF1 IN
[2022-04-20 09:14] VITALS: BP 116/86
[2022-04-20 09:15] VITALS: BP 143/77
[2022-04-20 09:30] VITALS: BP 116/63
[2022-04-20] MEDS ORDERED: DECADRON4 MG PO (09:30)
[2022-04-20 09:45] VITALS: BP 118/66
[2022-04-20 10:05] VITALS: BP 118/66
== END 2022-04-20 10:10 | disposition home or self-care (01) ==
LOC: ED 09:07
DX: M54.42 Lumbago with sciatica, left side (principal); I10 Essential (primary) hypertension; E11.9 Type 2 diabetes mellitus without complications; G40.909 Epilepsy, unspecified, not intractable, without status epilepticus; K21.9 Gastro-esophageal reflux disease without esophagitis; F41.9 Anxiety disorder, unspecified; K44.9 Diaphragmatic hernia without obstruction or gangrene; K29.70 Gastritis, unspecified, without bleeding

== ENCOUNTER 2022-05-14 14:48 | Emergency (ER) | payer MEDICARE, OTHER ==
[~2022-05-14] VITALS: Ht 160 cm; Wt 53.5 kg
[2022-05-14] VITALS (9 sets, daily range): BP systolic 98–116; BP diastolic 60–71
[~2022-05-14 14:48] MED LIST changes: +DECADRON4 MG PO
[2022-05-14] MEDS ORDERED: PREDNISONE50 MG PO (16:46)
== END 2022-05-14 17:28 | disposition home or self-care (01) ==
LOC: ED 14:48
DX: M25.551 Pain in right hip (principal); I10 Essential (primary) hypertension; E11.9 Type 2 diabetes mellitus without complications; G40.909 Epilepsy, unspecified, not intractable, without status epilepticus; K21.9 Gastro-esophageal reflux disease without esophagitis; F41.9 Anxiety disorder, unspecified

== ENCOUNTER 2022-05-15 14:35 | Emergency (ER) | payer MEDICARE, OTHER ==
[2022-05-15] VITALS (11 sets, daily range): BP systolic 87–133; BP diastolic 58–75
[~2022-05-15] VITALS: Ht 160 cm; Wt 60.0 kg
[2022-05-15 16:24] LABS: BASO% 0.1 % (0-3); HEMOGLOBIN 11.7 g/dl (12.0-16.0); IMMATURE GRANULOCYTES 0.1 % (0.0-5.0); LYMPH% 12.7 % (15-41); MEAN CELL VOLUME 89.7 fL CALC (80.0-100.0); MEAN CORPUSCULAR HGB 28.1 pG CALC (26.0-32.0); MEAN CORPUSCULAR HGB CONC 31.4 g/dL CAL (32.0-36.0); MONO% 2.1 % (2-13); NEUT# 5.96 thou/uL (2.00-7.15); RED BLOOD COUNT 4.16 mill/uL (4.20-5.60)
[2022-05-15 16:30] LABS: HEMATOCRIT 37.3 % (37.0-47.0)
[2022-05-15 16:39] LABS: ALKALINE PHOSPHATASE 89 u/l (38-126); ANION GAP 11 (6-22 (CALC)); BUN 10 mg/dL (8-23); BUN/CREATININE RATIO 15 (12-20 (CALC)); CARBON DIOXIDE 24 mmol/l (22-30); CHLORIDE 105 mmol/l (95-108); CREATININE 0.7 mg/dL (0.5-1.0); GFR FOR AFR.AMER. > 60 ML/MIN (>=60 (CALC)); GFR OTHER RACES > 60 ML/MIN (>=60 (CALC)); SGOT/AST 29 u/l (9-36); SODIUM 135 mmol/l (137-146)
[2022-05-15 16:40] LABS: ALBUMIN 4.4 g/dL (3.2-5.0); BILIRUBIN, TOTAL 0.1 mg/dL (0.02-1.3); TOTAL PROTEIN 7.5 g/dL (6.3-8.2)
== END 2022-05-15 21:21 | disposition home or self-care (01) ==
LOC: ED 14:35
PROVIDERS: Family Medicine
DX: M25.551 Pain in right hip (principal); I10 Essential (primary) hypertension; E11.9 Type 2 diabetes mellitus without complications; G40.909 Epilepsy, unspecified, not intractable, without status epilepticus; K21.9 Gastro-esophageal reflux disease without esophagitis; F41.9 Anxiety disorder, unspecified

== ENCOUNTER 2022-05-17 11:20 | Emergency (ER) | payer MEDICARE, OTHER ==
[~2022-05-17] VITALS: Ht 160 cm; Wt 54.0 kg
[2022-05-17] VITALS (7 sets, daily range): BP systolic 130–162; BP diastolic 74–101
[2022-05-17 11:54] LABS: BASO% 0.3 % (0-3); HEMOGLOBIN 11.7 g/dl (12.0-16.0); IMMATURE GRANULOCYTES 0.3 % (0.0-5.0); LYMPH% 16.4 % (15-41); MEAN CELL VOLUME 89.4 fL CALC (80.0-100.0); MEAN CORPUSCULAR HGB 28.3 pG CALC (26.0-32.0); MEAN CORPUSCULAR HGB CONC 31.6 g/dL CAL (32.0-36.0); MONO% 1.9 % (2-13); NEUT# 4.63 thou/uL (2.00-7.15); NEUT% 81.1 % (42-76); RED BLOOD COUNT 4.14 mill/uL (4.20-5.60); RED CELL DISTRI WIDTH 15.1 % (11.5-15.5)
[2022-05-17 12:16] LABS: ALBUMIN 4.4 g/dL (3.2-5.0); ALKALINE PHOSPHATASE 89 u/l (38-126); ANION GAP 11 (6-22 (CALC)); BILIRUBIN, TOTAL 0.1 mg/dL (0.02-1.3); BUN 9 mg/dL (8-23); BUN/CREATININE RATIO 11 (12-20 (CALC)); CARBON DIOXIDE 23 mmol/l (22-30); CHLORIDE 105 mmol/l (95-108); CREATININE 0.8 mg/dL (0.5-1.0); GFR FOR AFR.AMER. > 60 ML/MIN (>=60 (CALC)); GFR OTHER RACES > 60 ML/MIN (>=60 (CALC)); POTASSIUM 3.8 mmol/l (3.5-5.1); SGOT/AST 27 u/l (9-36); SODIUM 135 mmol/l (137-146); TOTAL PROTEIN 7.6 g/dL (6.3-8.2)
== END 2022-05-17 14:30 | disposition left against medical advice (07) ==
LOC: ED 11:20
PROVIDERS: Nurse Practitioner
DX: R07.9 Chest pain, unspecified (principal); R06.02 Shortness of breath; I10 Essential (primary) hypertension; F41.9 Anxiety disorder, unspecified; K21.9 Gastro-esophageal reflux disease without esophagitis; E11.9 Type 2 diabetes mellitus without complications; G40.909 Epilepsy, unspecified, not intractable, without status epilepticus; Z53.29 Procedure and treatment not carried out because of patient's decision for other reasons

== ENCOUNTER 2022-06-12 12:41 | Emergency (ER) | payer MEDICARE, OTHER ==
[2022-06-12] VITALS (9 sets, daily range): BP systolic 125–174; BP diastolic 77–97
[~2022-06-12] VITALS: Ht 160 cm; Wt 52.2 kg
[2022-06-12] MEDS ORDERED: HYDROCO/APAP1 TA9 PO (13:10)
[2022-06-12] MEDS ORDERED: PREDNISONE10 MG PO (13:55)
== END 2022-06-12 15:27 | disposition home or self-care (01) ==
LOC: ED 12:41
DX: M51.17 Intervertebral disc disorders with radiculopathy, lumbosacral region (principal); I10 Essential (primary) hypertension; E11.9 Type 2 diabetes mellitus without complications; G40.909 Epilepsy, unspecified, not intractable, without status epilepticus; K21.9 Gastro-esophageal reflux disease without esophagitis; F41.9 Anxiety disorder, unspecified

== ENCOUNTER 2022-06-13 09:38 | Emergency (ER) | payer MEDICARE, OTHER ==
[2022-06-13] VITALS (13 sets, daily range): BP systolic 123–159; BP diastolic 75–95
[~2022-06-13] VITALS: Ht 160 cm; Wt 58.9 kg
== END 2022-06-13 13:30 | disposition home or self-care (01) ==
LOC: ED 09:38
DX: M54.41 Lumbago with sciatica, right side (principal); I10 Essential (primary) hypertension; E11.9 Type 2 diabetes mellitus without complications; G40.909 Epilepsy, unspecified, not intractable, without status epilepticus; K21.9 Gastro-esophageal reflux disease without esophagitis; K44.9 Diaphragmatic hernia without obstruction or gangrene; F41.9 Anxiety disorder, unspecified

== ENCOUNTER 2022-09-11 07:25 | Day surgery (SDC) | payer MEDICARE, OTHER ==
[~2022-09-11] VITALS: Ht 160 cm; Wt 52.2 kg
[2022-09-11 11:50] VITALS: BP 135/74
== END 2022-09-11 10:12 | disposition home or self-care (01) ==
LOC: ORM 07:25
DX: M46.1 Sacroiliitis, not elsewhere classified (principal); M47.816 Spondylosis without myelopathy or radiculopathy, lumbar region; M54.16 Radiculopathy, lumbar region; M25.552 Pain in left hip; G89.29 Other chronic pain; S76.211D Strain of adductor muscle, fascia and tendon of right thigh, subsequent encounter
CPT/HCPCS: A9585; J1100

== ENCOUNTER 2022-09-13 14:41 | Emergency (ER) | payer MEDICARE, OTHER ==
[~2022-09-13] VITALS: Ht 160 cm; Wt 70.3 kg
[2022-09-13] VITALS (7 sets, daily range): BP systolic 90–124; BP diastolic 57–69
[2022-09-13] MEDS ORDERED: PREDNISONE10 MG PO (16:05)
== END 2022-09-13 16:22 | disposition home or self-care (01) ==
LOC: ED 14:41
DX: M54.41 Lumbago with sciatica, right side (principal); I10 Essential (primary) hypertension; E11.9 Type 2 diabetes mellitus without complications; G40.909 Epilepsy, unspecified, not intractable, without status epilepticus; K21.9 Gastro-esophageal reflux disease without esophagitis; F41.9 Anxiety disorder, unspecified; Z79.891 Long term (current) use of opiate analgesic

== ENCOUNTER 2022-09-16 11:02 | Emergency (ER) | payer MEDICARE, OTHER ==
[2022-09-16] VITALS (10 sets, daily range): BP systolic 136–174; BP diastolic 80–99
[~2022-09-16] VITALS: Ht 160 cm; Wt 52.2 kg
[2022-09-16 12:29] LABS: BASO% 0.2 % (0-3); HEMATOCRIT 38.5 % (37.0-47.0); IMMATURE GRANULOCYTES 0.4 % (0.0-5.0); LYMPH% 18.6 % (15-41); MEAN CELL VOLUME 89.7 fL CALC (80.0-100.0); MEAN CORPUSCULAR HGB CONC 31.2 g/dL CAL (32.0-36.0); MONO% 2.1 % (2-13); NEUT# 4.41 thou/uL (2.00-7.15); NEUT% 78.7 % (42-76); RED BLOOD COUNT 4.29 mill/uL (4.20-5.60); RED CELL DISTRI WIDTH 14.4 % (11.5-15.5)
[2022-09-16 12:46] LABS: ALBUMIN 4.7 g/dL (3.2-5.0); ALKALINE PHOSPHATASE 72 u/l (38-126); ANION GAP 14 (6-22 (CALC)); BUN 9 mg/dL (8-23); BUN/CREATININE RATIO 15 (12-20 (CALC)); CARBON DIOXIDE 25 mmol/l (22-30); CHLORIDE 104 mmol/l (95-108); CREATININE 0.6 mg/dL (0.5-1.0); GFR FOR AFR.AMER. > 60 ML/MIN (>=60 (CALC)); GFR OTHER RACES > 60 ML/MIN (>=60 (CALC)); POTASSIUM 4.2 mmol/l (3.5-5.1); SGOT/AST 25 u/l (9-36); SODIUM 139 mmol/l (137-146); TOTAL PROTEIN 7.7 g/dL (6.3-8.2)
[2022-09-16] MEDS ORDERED: LIDOCAINE PATCH 55 % TD (14:31)
[2022-09-16] MEDS ORDERED: NEURONTIN100 MG PO (14:43)
== END 2022-09-16 14:57 | disposition home or self-care (01) ==
LOC: ED 11:02
PROVIDERS: Nurse Practitioner
DX: M54.50 Low back pain, unspecified (principal); G89.29 Other chronic pain; I10 Essential (primary) hypertension; E11.9 Type 2 diabetes mellitus without complications; G40.909 Epilepsy, unspecified, not intractable, without status epilepticus; K21.9 Gastro-esophageal reflux disease without esophagitis; F41.9 Anxiety disorder, unspecified
CPT/HCPCS: Q9967

== ENCOUNTER 2022-10-30 11:27 | Emergency (ER) | payer MEDICARE, OTHER ==
[~2022-10-30] VITALS: Ht 160 cm; Wt 53.0 kg
[~2022-10-30 11:27] MED LIST changes: +LIDOCAINE PATCH 55 % TD; +NEURONTIN100 MG PO
[2022-10-30 11:37] VITALS: BP 133/57
[2022-10-30 11:40] VITALS: BP 104/51
[2022-10-30 12:00] VITALS: BP 115/66
[2022-10-30 12:20] VITALS: BP 126/70
[2022-10-30 12:40] VITALS: BP 120/72
[2022-10-30] MEDS ORDERED: PREDNISONE50 MG PO (12:53)
[2022-10-30 13:00] VITALS: BP 102/59
== END 2022-10-30 13:10 | disposition home or self-care (01) ==
LOC: ED 11:27
DX: M25.551 Pain in right hip (principal); I10 Essential (primary) hypertension; E11.9 Type 2 diabetes mellitus without complications; G40.909 Epilepsy, unspecified, not intractable, without status epilepticus; K21.9 Gastro-esophageal reflux disease without esophagitis

== ENCOUNTER 2022-11-09 12:56 | Emergency (ER) | payer MEDICARE, OTHER ==
[~2022-11-09] VITALS: Ht 160 cm; Wt 53.5 kg
[2022-11-09 14:38] VITALS: BP 127/70
[2022-11-09 14:45] VITALS: BP 131/87
[2022-11-09 15:00] VITALS: BP 119/78
[2022-11-09 16:43] VITALS: BP 119/78
[2022-11-12] MEDS ORDERED: METHOCARBAMOL500 MG PO (15:26)
[2022-11-12] MEDS ORDERED: PREDNISONE10 MG PO (15:26)
== END 2022-11-09 17:05 | disposition home or self-care (01) ==
LOC: ED 12:56
DX: M25.551 Pain in right hip (principal); I10 Essential (primary) hypertension; E11.9 Type 2 diabetes mellitus without complications; G40.909 Epilepsy, unspecified, not intractable, without status epilepticus; K21.9 Gastro-esophageal reflux disease without esophagitis; F41.9 Anxiety disorder, unspecified

== ENCOUNTER 2022-11-11 13:45 | Emergency (ER) | payer MEDICARE, OTHER ==
[~2022-11-11] VITALS: Ht 160 cm; Wt 53.5 kg
[2022-11-11 14:34] VITALS: BP 129/99
[2022-11-11 14:41] VITALS: BP 125/72
[2022-11-11 15:00] VITALS: BP 125/65
[2022-11-11] MEDS ORDERED: METHOCARBAMOL500 MG PO (15:06)
[2022-11-11] MEDS ORDERED: PREDNISONE10 MG PO (15:06)
[2022-11-11] MEDS ORDERED: NEURONTIN100 MG PO (15:06)
[2022-11-11 15:16] VITALS: BP 125/65
[2022-11-12] MEDS ORDERED: METHOCARBAMOL500 MG PO (15:26)
[2022-11-12] MEDS ORDERED: PREDNISONE10 MG PO (15:26)
== END 2022-11-11 15:22 | disposition home or self-care (01) ==
LOC: ED 13:45
DX: G89.4 Chronic pain syndrome (principal); M54.41 Lumbago with sciatica, right side; I10 Essential (primary) hypertension; E11.9 Type 2 diabetes mellitus without complications; G40.909 Epilepsy, unspecified, not intractable, without status epilepticus; F41.9 Anxiety disorder, unspecified; K21.9 Gastro-esophageal reflux disease without esophagitis

== ENCOUNTER 2022-11-30 09:24 | Emergency (ER) | payer MEDICARE, OTHER ==
[~2022-11-30] VITALS: Ht 160 cm; Wt 118.0 kg
[2022-11-30] VITALS (8 sets, daily range): BP systolic 131–144; BP diastolic 61–97
[~2022-11-30 09:24] MED LIST changes: +METHOCARBAMOL500 MG PO
== END 2022-11-30 12:40 | disposition home or self-care (01) ==
LOC: ED 09:24
DX: M25.551 Pain in right hip (principal); M54.41 Lumbago with sciatica, right side; I10 Essential (primary) hypertension; E11.9 Type 2 diabetes mellitus without complications; G40.909 Epilepsy, unspecified, not intractable, without status epilepticus; Z88.8 Allergy status to other drugs, medicaments and biological substances

== ENCOUNTER 2023-01-06 12:15 | Emergency (ER) | payer MEDICARE, OTHER ==
[2023-01-06] VITALS (11 sets, daily range): BP systolic 136–200; BP diastolic 48–104
[~2023-01-06] VITALS: Ht 160 cm; Wt 52.6 kg
[2023-01-06] MEDS ORDERED: PREDNISONE10 MG PO (13:33)
[2023-01-06] MEDS ORDERED: METHOCARBAMOL500 MG PO (13:33)
== END 2023-01-06 14:54 | disposition home or self-care (01) ==
LOC: ED 12:15
DX: G89.4 Chronic pain syndrome (principal); I10 Essential (primary) hypertension; E11.9 Type 2 diabetes mellitus without complications; G40.909 Epilepsy, unspecified, not intractable, without status epilepticus; Z79.891 Long term (current) use of opiate analgesic

== ENCOUNTER 2023-04-11 18:08 | Emergency (ER) | payer MEDICARE, OTHER ==
[2023-04-11] VITALS (9 sets, daily range): BP systolic 119–146; BP diastolic 71–87
[~2023-04-11] VITALS: Ht 160 cm; Wt 53.5 kg
[2023-04-11] MEDS ORDERED: PERCOCET 10/31 COMBO PO (19:50)
== END 2023-04-11 20:13 | disposition home or self-care (01) ==
LOC: ED 18:08
DX: M25.551 Pain in right hip (principal); M54.50 Low back pain, unspecified; I10 Essential (primary) hypertension; E11.9 Type 2 diabetes mellitus without complications; G40.909 Epilepsy, unspecified, not intractable, without status epilepticus; Z96.641 Presence of right artificial hip joint

== ENCOUNTER 2023-04-29 16:02 | Emergency (ER) | payer MEDICARE, OTHER ==
[~2023-04-29] VITALS: Ht 160 cm; Wt 53.5 kg
[2023-04-29 16:09] VITALS: BP 148/84
[2023-04-29] MEDS ORDERED: XARELTO20 MG PO (16:15)
[2023-04-29 16:30] VITALS: BP 137/82
[2023-04-29] MEDS ORDERED: DECADRON4 MG PO (16:40)
[2023-04-29] MEDS ORDERED: FLEXERIL5 M1 PO (16:40)
[2023-04-29 17:00] VITALS: BP 114/71
[2023-04-29 17:30] VITALS: BP 117/77
[2023-04-29 17:50] VITALS: BP 117/77
== END 2023-04-29 17:55 | disposition home or self-care (01) ==
LOC: ED 16:02
DX: M25.551 Pain in right hip (principal); I10 Essential (primary) hypertension; M54.30 Sciatica, unspecified side; G40.909 Epilepsy, unspecified, not intractable, without status epilepticus; K21.9 Gastro-esophageal reflux disease without esophagitis

== ENCOUNTER 2023-04-30 20:20 | Emergency (ER) | payer MEDICARE, OTHER ==
[~2023-04-30] VITALS: Ht 160 cm; Wt 53.0 kg
[~2023-04-30 20:20] MED LIST changes: +XARELTO20 MG PO
[2023-04-30 22:30] VITALS: BP 127/77
[2023-04-30 23:00] VITALS: BP 118/72
[2023-04-30 23:10] VITALS: BP 118/72
== END 2023-04-30 23:10 | disposition home or self-care (01) ==
LOC: ED 20:20
DX: M25.551 Pain in right hip (principal); I10 Essential (primary) hypertension; G40.909 Epilepsy, unspecified, not intractable, without status epilepticus; K21.9 Gastro-esophageal reflux disease without esophagitis; F41.9 Anxiety disorder, unspecified; Z88.8 Allergy status to other drugs, medicaments and biological substances; Z96.641 Presence of right artificial hip joint; Z79.891 Long term (current) use of opiate analgesic

== ENCOUNTER 2023-05-14 17:02 | Emergency (ER) | payer MEDICARE, OTHER | END 2023-05-14 18:09 | disposition left against medical advice (07) | LOC: ED 17:02 | DX: Z53.21 Procedure and treatment not carried out due to patient leaving prior to being seen by health care provider (principal) ==

== ENCOUNTER 2023-05-15 09:30 | Emergency (ER) | payer MEDICARE, OTHER ==
[2023-05-15] VITALS (10 sets, daily range): BP systolic 158–185; BP diastolic 82–109
[~2023-05-15] VITALS: Ht 160 cm; Wt 53.0 kg
[2023-05-15] MEDS ORDERED: ONDANSETRON 4 MG/TAB ODT PO ONE (12:05)
[2023-05-15] MEDS ORDERED: ORPHENADRINE CITRATE 30 MG/ML AMP IM ONE (12:05)
[2023-05-15] MEDS ORDERED: DEXAMETHASONE SOD. PHOSPHATE 10 MG/ML VIAL IM ONE (12:05)
[2023-05-15] MEDS ORDERED: MORPHINE SULFATE 4 MG/ML VIAL IM ONE (12:05)
== END 2023-05-15 14:21 | disposition home or self-care (01) ==
LOC: ED 09:30
DX: M54.41 Lumbago with sciatica, right side (principal); I10 Essential (primary) hypertension; G40.909 Epilepsy, unspecified, not intractable, without status epilepticus

== ENCOUNTER 2023-05-23 06:29 | Observation (INO) | payer MEDICARE, OTHER ==
[~2023-05-23] VITALS: Ht 160 cm; Wt 55.0 kg
[2023-05-23] MEDS ORDERED: MORPHINE SULFATE 4 MG/ML VIAL IM ONE (07:20)
[2023-05-23] MEDS ORDERED: ONDANSETRON 4 MG/TAB ODT PO ONE (07:20)
[2023-05-23] MEDS ORDERED: LISINOPRIL5 MG PO (07:30)
[2023-05-23] MEDS ORDERED: TRAZODONE100 MG PO (07:32)
[2023-05-23] MEDS ORDERED: EFFEXOR XR150 MG PO (07:33)
--- NOTE | 2023-05-23 07:33 | NUR ---
PT REPORTS SHE FELL FRIDAY PAIN R HIP, L HIP LOWER BACK PAIN 9 MEDICTED WITH MORPHINE AND ZOFRAN, ALSO REPORTS SHE HAD R HIP SURGERY LAST JAN, ORIENT TO ROOM AND CALL BROUSSARD.
--- NOTE | 2023-05-23 07:45 | NUR ---
PT TO XRAY VIA W/C ACCOMPANIED BY ACID STRENGTH INSPECTOR IN STABLE CONDITION.
--- NOTE | 2023-05-23 08:13 | NUR ---
PT RTRND FROM XRAY, ICE PACK APPLIED TO L LOW BACK PER HER REQUEST.
--- NOTE | 2023-05-23 09:22 | NUR ---
PT C/O PAIN IN CENTER OF BOTH BREAST PAIN MOVES TO HER NECK BURPING MAKES IT BETTER, FEELS THIS WAY WHEN SHE'S ANXIOUS, PROVIDER AWARE. EKG DONE.
[2023-05-23 09:50] LABS: BASO% 0.1 % (0-3); EOS% 2.9 % (0-8); HEMATOCRIT 38.4 % (37.0-47.0); HEMOGLOBIN 11.6 g/dl (12.0-16.0); IMMATURE GRANULOCYTES 1.2 % (0.0-5.0); LYMPH% 45.2 % (15-41); MEAN CORPUSCULAR HGB 25.9 pG CALC (26.0-32.0); MEAN CORPUSCULAR HGB CONC 30.2 g/dL CAL (32.0-36.0); NEUT# 2.89 thou/uL (2.00-7.15); NEUT% 42.6 % (42-76); RED BLOOD COUNT 4.48 mill/uL (4.20-5.60); RED CELL DISTRI WIDTH 16.8 % (11.5-15.5)
[2023-05-23 09:57] LABS: MEAN CELL VOLUME 85.7 fL CALC (80.0-100.0)
[2023-05-23 10:26] LABS: ALBUMIN 4.5 g/dL (3.2-5.0); ALKALINE PHOSPHATASE 100 u/l (38-126); ANION GAP 11 (6-22 (CALC)); BILIRUBIN, TOTAL 0.2 mg/dL (0.02-1.3); BUN 14 mg/dL (8-23); BUN/CREATININE RATIO 24 (12-20 (CALC)); CARBON DIOXIDE 27 mmol/l (22-30); CHLORIDE 104 mmol/l (95-108); CREATININE 0.6 mg/dL (0.5-1.0); GFR FOR AFR.AMER. > 60 ML/MIN (>=60 (CALC)); GFR OTHER RACES > 60 ML/MIN (>=60 (CALC)); POTASSIUM 4.6 mmol/l (3.5-5.1); SGOT/AST 28 u/l (9-36); SODIUM 138 mmol/l (137-146); TOTAL PROTEIN 7.6 g/dL (6.3-8.2)
--- NOTE | 2023-05-23 10:44 | NUR ---
PT UP TO RESTROOM WITH SLOW STEADY GAIT, REPORTS "CHEST STILL HURTS BUT I THINK IT'S STRESS RELATED"
--- NOTE | 2023-05-23 10:57 | NUR ---
JUICE GIVEN TO PT AND PT BACK ON MONITOR.
[2023-05-23] MEDS ORDERED: NITROGLYCERIN 0.4 MG/TAB SL PRN (11:50)
[2023-05-23] MEDS ORDERED: MAGNESIUM HYDROXIDE 30 ML UDC PO PRN (11:50)
[2023-05-23] MEDS ORDERED: ACETAMINOPHEN 325 MG/TAB PO PRN (11:50)
--- NOTE | 2023-05-23 13:35 | NUR ---
LUNCH TRAY PROVDED TO PT.
--- NOTE | 2023-05-23 14:03 | NUR ---
PT C/O RT LEG AND RT GROIN PAIN, PT ALSO REPORTS SHE NO NOT TAKEN ANY MEDS TODAY, BP ELEVATED, PROVIDER AWARE.
--- NOTE | 2023-05-23 14:48 | NUR ---
ADMITING DR AT BEDSIDE.
[2023-05-23] MEDS ORDERED: oxyCODONE 5MG/ ACETAMINOPHEN 325MG TAB PO PRN (15:05)
--- NOTE | 2023-05-23 15:09 | NUR ---
REPORT GIVEN TO KALANI ON MS.
--- NOTE | 2023-05-23 15:27 | NUR ---
female pt received to [facility] via wc accompanied estrellita Dominguez LPN; weight obtained; admission assessment completed at this time; c/c of fall resulting in lower right back pain, pt describes as "sciatica"; denies syncope; pt alert and oriented; admits to pain 11/14; no n/v noted; resp even and unlabored; lungs clear; skin color wnl; ra; hr reg; strong pulses; no edema noted; tele monitor intact; abd soft with bs present; no bm noted per freelance copywriter; no urine to inspect at this time; #20 to lac saline locked; no redness or edema noted at site; plan of care/ meds explained; call light within reach; will continue to monitor
[2023-05-23] MEDS ORDERED: METHOCARBAMOL 500 MG/TAB PO SCH (15:30)
--- NOTE | 2023-05-23 15:30 | NUR ---
PT TRF TO RM 261 VIA W/C ACCOMPANIED BY ED STAFF IN STABLE CONDITION, TELE [address], ALL PERSONAL BELONGINGS SENT WITH PT.
[2023-05-23 16:02] VITALS: BP 172/96
[2023-05-23 16:55] VITALS: BP 172/96
[2023-05-23] MEDS ORDERED: PROTONIX40 M2 PO (17:36)
--- NOTE | 2023-05-23 17:52 | NUR ---
pt awake in bed; admits to pain relief; iv intact; spouse at bedside; home meds reviewed; tele monitor intact; call light within reach
[2023-05-23 19:51] VITALS: BP 160/82
--- NOTE | 2023-05-23 20:40 | NUR ---
PT IN BED WATCHING TV NO S/S OF DISTRESS NOTED, BREATHING IS EVEN AND UNLABORED. SHIFT ASSESSMENT COMPLETED. PT IS A&OX3 ABLE TO MAKE NEEDS KNOWS. PT IS ON TELE #06 SR. IV TO LAC 20G PATENT AND FLUSHES WELL. LUNGS SOUNDS ARE CLEAR. PT REPORT PAR TO RIGHT HIP, PT MEDICATED ORDER PER MAR. NO NEEDS OR CONCERNS VOICED. CALL LIGHT IN REACH AND BED IN LOWSET POSITION.
[2023-05-23] MEDS ORDERED: ENOXAPARIN SODIUM 40 MG/0.4 ML SYR SC SCH (21:00)
[2023-05-23 23:55] VITALS: BP 158/71
--- NOTE | 2023-05-24 00:50 | NUR ---
PT IN BED AWAKE REPORT PAIN TO RIGHT HIP , PT MEDICATED PER MAR. NO OTHER NEEDS OR CONCERN VOICED. CALL LIGHT IN REACH AND BED IN LOWSET POSITION.
--- NOTE | 2023-05-24 03:33 | NUR ---
PT IN BED RESTING WITH EYES CLOSED, BREATHING EVEN AND UNLABORED. NO S/S OF DISTRESS NOTED. CALL LIGHT IN REACH AND BED IN LOWEST POSITION.
[2023-05-24 03:43] VITALS: BP 125/78
[2023-05-24 05:39] LABS: BASO% 0.1 % (0-3); EOS% 4.1 % (0-8); HEMATOCRIT 34.3 % (37.0-47.0); HEMOGLOBIN 10.7 g/dl (12.0-16.0); IMMATURE GRANULOCYTES 0.6 % (0.0-5.0); LYMPH% 36.2 % (15-41); MEAN CELL VOLUME 84.3 fL CALC (80.0-100.0); MEAN CORPUSCULAR HGB 26.3 pG CALC (26.0-32.0); MEAN CORPUSCULAR HGB CONC 31.2 g/dL CAL (32.0-36.0); MONO% 9.6 % (2-13); NEUT# 3.34 thou/uL (2.00-7.15); NEUT% 49.4 % (42-76); RED BLOOD COUNT 4.07 mill/uL (4.20-5.60)
[2023-05-24 05:44] LABS: ALKALINE PHOSPHATASE 86 u/l (38-126); ANION GAP 11 (6-22 (CALC)); BILIRUBIN, TOTAL 0.2 mg/dL (0.02-1.3); BUN 13 mg/dL (8-23); BUN/CREATININE RATIO 23 (12-20 (CALC)); CARBON DIOXIDE 25 mmol/l (22-30); CHLORIDE 102 mmol/l (95-108); CREATININE 0.6 mg/dL (0.5-1.0); GFR FOR AFR.AMER. > 60 ML/MIN (>=60 (CALC)); GFR OTHER RACES > 60 ML/MIN (>=60 (CALC)); POTASSIUM 4.3 mmol/l (3.5-5.1); SGOT/AST 24 u/l (9-36); SODIUM 135 mmol/l (137-146); TOTAL PROTEIN 6.5 g/dL (6.3-8.2)
[2023-05-24 07:10] VITALS: BP 192/86
--- NOTE | 2023-05-24 07:25 | NUR ---
REPORT RECEIVED FROM NATI GARCIA
[2023-05-24] MEDS ORDERED: ALPRAZolam 0.5 MG/TAB PO PRN (08:55)
[2023-05-24 08:57] VITALS: BP 196/81
[2023-05-24] MEDS ORDERED: PANTOPRAZOLE SODIUM Sesquihydr 40 MG/TAB PO SCH (09:00)
[2023-05-24] MEDS ORDERED: LISINOPRIL 5 MG/TAB PO SCH (09:00)
[2023-05-24] MEDS ORDERED: VENLAFAXINE HYDROCHLORIDE 75 MG/CAP PO SCH (09:00)
--- NOTE | 2023-05-24 09:00 | NUR ---
PT RESTING IN SEMI FOWLERS POSITION,A&O X3. PT NOTED TO BE ANXIOUS REPORTING "HOSPITALS MAKE ME NERVOUS";ASSESSMENT COMPLETED;RESPIRATIONS EVEN AND UNLABORED ON RA;PT DENIES ANY CURRENT PAIN;BP ELEVATED, MADE AWARE AND HOME MEDICATIONS TO BE ORDERED;IV SITE PATENT;TELE MONITORING IN PLACE;PT DENIES ANY ADDITIONAL NEEDS AND IS ENCOURAGED TO CALL FOR ASSISTANCE IF NEEDED;FALL PRECAUTIONS IN PLACE WITH BED IN THE LOWEST POSITION AND CALL LIGHT IN REACH;FREQUENT ROUNDS MADE
--- NOTE | 2023-05-24 09:50 | NUR ---
PT MEDICATED WITH PRN XANAX 0.5MG PO FOR ANXIETY PER REQUEST
--- NOTE | 2023-05-24 11:20 | NUR ---
PT MEDICATED WITH PRN PERCOCET 5/325MG PO FOR RIGHT SIDED FLANK PAIN RATING 7/10 PER REQUEST
[2023-05-24 11:38] VITALS: BP 154/58; BP 159/85
--- NOTE | 2023-05-24 12:05 | NUR ---
AT BEDSIDE DISCUSSING POC WITH PT.
[2023-05-24] MEDS ORDERED: VOLTAREN1%GEL TOP (12:09)
--- NOTE | 2023-05-24 12:30 | NUR ---
PT RESTING IN SEMI FOWLERS POSITION;RESPIRATIONS EVEN AND UNLABORED ON RA;PT DENIES ANY CURRENT PAIN OR NEEDS;TELE MONITORING IN PLACE;IV SITE PATENT;PT EDUCATED ON PLANS TO D/C HOME AND VERBALIZES UNDERSTANDING;SPOUSE TO TRANSPORT PT HOME;ENCOURAGED TO CALL FOR ASSISTANCE IF NEEDED;CALL LIGHT IN REACH;FREQUENT ROUNDS MADE.
--- NOTE | 2023-05-24 13:21 | NUR ---
ALL DISCHARGE INSTRUCTIONS PROVIDED AT THIS TIME;PT INSTRUCTED TO F/U WITH PCP AND CARDIOLOGY;IV SITE REMOVED WITH CATHETER IN PLACE AND TELE MONITORING D/C;PT DENIES ANY ADDITIONAL QUESTIONS OR NEEDS;WC TO BE PROVIDED FOR D/C HOME.SPOUSE TO TRANSPORT PT HOME.FREQUENT ROUNDS MADE.
--- NOTE | 2023-05-24 13:24 | NUR ---
Discharge instructions given. Patient verbalizes understanding of same. Discharged in stable condition via Wheelchair to Home with spouse. All belongings sent with pt. PT TRANSPORTED TO [facility] IN STABLE CONDITION VIA ACCOMPANIED BY ESTEFANIA CERNA AND SPOUSE. ALL PERSONAL BELONGINGS LEFT WITH PT. SPOUSE TO TRANSPORT PT HOME.
[2023-05-24] MEDS ORDERED: traZODone HCL 50 MG/TAB PO SCH (21:00)
== END 2023-05-24 13:24 | disposition home or self-care (01) ==
LOC: ED 06:29 → ED-I 11:10 → ED 11:36 → ED-I 11:37 → MS2 14:54
PROVIDERS: Family Medicine; ADMIT Student in an Organized Health Care Education/Training Program; ATTEND Student in an Organized Health Care Education/Training Program
DX: R07.9 Chest pain, unspecified (principal); I10 Essential (primary) hypertension; E11.59 Type 2 diabetes mellitus with other circulatory complications; G40.909 Epilepsy, unspecified, not intractable, without status epilepticus; K21.9 Gastro-esophageal reflux disease without esophagitis; F41.9 Anxiety disorder, unspecified; F32.A Depression, unspecified; M51.17 Intervertebral disc disorders with radiculopathy, lumbosacral region; M47.812 Spondylosis without myelopathy or radiculopathy, cervical region; M16.12 Unilateral primary osteoarthritis, left hip; Z96.641 Presence of right artificial hip joint; Z79.01 Long term (current) use of anticoagulants; Z86.718 Personal history of other venous thrombosis and embolism
CPT/HCPCS: J1650

== ENCOUNTER 2023-10-22 16:23 | Emergency (ER) | payer MEDICARE, OTHER ==
[2023-10-22] VITALS (9 sets, daily range): BP systolic 125–155; BP diastolic 71–92
[~2023-10-22] VITALS: Ht 160 cm; Wt 54.0 kg
[~2023-10-22 16:23] MED LIST changes: +EFFEXOR XR150 MG PO; +LISINOPRIL5 MG PO; +TYLENOL500 MG PO; +VOLTAREN1%GEL TOP
[2023-10-22 16:59] LABS: BASO% 0.7 % (0-3); EOS% 4.6 % (0-8); HEMATOCRIT 33.8 % (37.0-47.0); HEMOGLOBIN 10.5 g/dl (12.0-16.0); LYMPH% 47.5 % (15-41); MEAN CELL VOLUME 87.8 fL CALC (80.0-100.0); MEAN CORPUSCULAR HGB 27.3 pG CALC (26.0-32.0); MEAN CORPUSCULAR HGB CONC 31.1 g/dL CAL (32.0-36.0); MONO% 12.8 % (2-13); NEUT# 1.51 thou/uL (2.00-7.15); NEUT% 34.4 % (42-76); RED BLOOD COUNT 3.85 mill/uL (4.20-5.60); RED CELL DISTRI WIDTH 15.2 % (11.5-15.5)
[2023-10-22 17:10] LABS: ALBUMIN 4.1 g/dL (3.2-5.0); ALKALINE PHOSPHATASE 85 u/l (38-126); ANION GAP 14 (6-22 (CALC)); BILIRUBIN, TOTAL 0.3 mg/dL (0.02-1.3); BUN 8 mg/dL (8-23); BUN/CREATININE RATIO 12 (12-20 (CALC)); CHLORIDE 106 mmol/l (95-108); CREATININE 0.7 mg/dL (0.5-1.0); ESTIMATED GFR 91 ML/MIN (>=90 (CALC)); LIPASE 45 u/l (23-300); SGOT/AST 32 u/l (9-36); SODIUM 137 mmol/l (137-146); TOTAL PROTEIN 7.2 g/dL (6.3-8.2)
[2023-10-22] MEDS ORDERED: SODIUM CHLORIDE 0.9% 1,000 ML IV ONE (17:10)
[2023-10-22] MEDS ORDERED: ONDANSETRON HCl 4 MG/2 ML SDV IV ONE (17:10)
[2023-10-22] MEDS ORDERED: MORPHINE SULFATE 4 MG/ML VIAL IV ONE (17:10)
[2023-10-22 17:18] LABS: CARBON DIOXIDE 21 mmol/l (22-30)
[2023-10-22] MEDS ORDERED: LACTATED RINGER'S 1,000 ML IV ONE (19:10)
[2023-10-22 19:55] LABS: URINE BILIRUBIN - DIPSTICK Negative (NEGATIVE); URINE BLOOD DIPSTICK Negative (NEGATIVE); URINE GLUCOSE - DIPSTICK Negative (NEGATIVE); URINE KETONE Negative (NEGATIVE); URINE LEUK ESTERASE Negative (NEGATIVE); URINE NITRITE - DIPSTICK Negative (Negative); URINE PH 6.5 (4.5-8.0); URINE PROTEIN - DIPSTICK Negative (NEG-TRACE); URINE UROBILINOGEN - DIPSTICK 0.2 E.U./dL (0.2)
[2023-10-22 19:56] LABS: URINE COLOR Yellow
[2023-10-22] MEDS ORDERED: traMADol HCL 50 MG/TAB PO ONE (20:20)
[2023-10-22] MEDS ORDERED: ACETAMINOPHEN 500 MG TAB PO ONE (20:20)
[2023-10-22] MEDS ORDERED: MAGNESIUM CITRATE 296 ML/BTL PO ONE (21:55)
[2023-10-22] MEDS ORDERED: Polyethylene Glycol 3350 17 GM/PKT PO ONE (21:55)
[2023-10-22] MEDS ORDERED: MIRALAX17 GM PO (21:55)
== END 2023-10-22 23:03 | disposition home or self-care (01) ==
LOC: ED 16:23
PROVIDERS: Family Medicine
DX: K59.00 Constipation, unspecified (principal); I10 Essential (primary) hypertension; K21.9 Gastro-esophageal reflux disease without esophagitis; F41.9 Anxiety disorder, unspecified
CPT/HCPCS: Q9967

== ENCOUNTER 2023-10-25 12:09 | Emergency (ER) | payer MEDICARE, OTHER ==
[~2023-10-25] VITALS: Ht 160 cm; Wt 54.4 kg
[2023-10-25 12:24] VITALS: BP 129/65
[2023-10-25 12:30] VITALS: BP 109/67
[2023-10-25 12:45] VITALS: BP 106/58
[2023-10-25] MEDS ORDERED: ORPHENADRINE CITRATE 30 MG/ML AMP IM ONE (12:55)
[2023-10-25] MEDS ORDERED: METHOCARBAMOL500 MG PO (12:56)
[2023-10-25 13:00] VITALS: BP 88/55
[2023-10-25] MEDS ORDERED: METHOCARBAMOL 500 MG/TAB PO ONE (13:00)
[2023-10-25 13:15] VITALS: BP 95/51
[2023-10-25 13:30] VITALS: BP 85/53
== END 2023-10-25 13:44 | disposition home or self-care (01) ==
LOC: ED 12:09
DX: R10.2 Pelvic and perineal pain (principal); I10 Essential (primary) hypertension; M54.9 Dorsalgia, unspecified; G89.29 Other chronic pain; K21.9 Gastro-esophageal reflux disease without esophagitis; Z79.891 Long term (current) use of opiate analgesic

== ENCOUNTER 2023-10-27 13:38 | Emergency (ER) | payer MEDICARE, OTHER ==
[~2023-10-27] VITALS: Ht 160 cm; Wt 63.5 kg
[2023-10-27] VITALS (9 sets, daily range): BP systolic 116–165; BP diastolic 64–88
[2023-10-27] MEDS ORDERED: LORTAB 5/3255 MG PO (14:04)
[2023-10-27 14:46] LABS: BASO% 0.6 % (0-3); EOS% 3.9 % (0-8); HEMATOCRIT 34.2 % (37.0-47.0); HEMOGLOBIN 10.7 g/dl (12.0-16.0); IMMATURE GRANULOCYTES 0.2 % (0.0-5.0); LYMPH% 56.3 % (15-41); MEAN CORPUSCULAR HGB 27.2 pG CALC (26.0-32.0); MEAN CORPUSCULAR HGB CONC 31.3 g/dL CAL (32.0-36.0); MONO% 9.3 % (2-13); NEUT# 1.54 thou/uL (2.00-7.15); NEUT% 29.7 % (42-76); RED BLOOD COUNT 3.93 mill/uL (4.20-5.60); RED CELL DISTRI WIDTH 15.7 % (11.5-15.5)
[2023-10-27 14:55] LABS: ALBUMIN 4.3 g/dL (3.2-5.0); BILIRUBIN, TOTAL 0.3 mg/dL (0.02-1.3); CREATININE 0.8 mg/dL (0.5-1.0); POTASSIUM 3.7 mmol/l (3.5-5.1); TOTAL PROTEIN 7.2 g/dL (6.3-8.2)
[2023-10-27 15:10] LABS: URINE BILIRUBIN - DIPSTICK Negative (NEGATIVE); URINE BLOOD DIPSTICK Negative (NEGATIVE); URINE GLUCOSE - DIPSTICK Negative (NEGATIVE); URINE KETONE Negative (NEGATIVE); URINE LEUK ESTERASE Negative (NEGATIVE); URINE NITRITE - DIPSTICK Negative (Negative); URINE PH 6.5 (4.5-8.0); URINE PROTEIN - DIPSTICK Negative (NEG-TRACE); URINE UROBILINOGEN - DIPSTICK 0.2 E.U./dL (0.2)
[2023-10-27 15:11] LABS: URINE COLOR Yellow
[2023-10-27] MEDS ORDERED: DEXAMETHASONE SOD. PHOSPHATE 10 MG/ML VIAL IM ONE (15:35)
[2023-10-27] MEDS ORDERED: CYCLOBENZAPRINE HCL 5 MG TAB PO ONE (15:35)
[2023-10-27] MEDS ORDERED: MEDDOSEPAK PO (15:52)
== END 2023-10-27 16:05 | disposition home or self-care (01) ==
LOC: ED 13:38
PROVIDERS: Nurse Practitioner
DX: G89.4 Chronic pain syndrome (principal); I10 Essential (primary) hypertension; K21.9 Gastro-esophageal reflux disease without esophagitis; F41.9 Anxiety disorder, unspecified; T40.2X6A Underdosing of other opioids, initial encounter; Z91.128 Patient's intentional underdosing of medication regimen for other reason; Z96.641 Presence of right artificial hip joint

== ENCOUNTER 2023-11-05 08:55 | Emergency (ER) | payer MEDICARE, OTHER ==
[~2023-11-05] VITALS: Ht 160 cm; Wt 56.8 kg
[2023-11-05] VITALS (11 sets, daily range): BP systolic 106–159; BP diastolic 68–100
[2023-11-05] MEDS ORDERED: LIDOCAINE VISCOUS 2% 15 ML UDC PO ONE (09:15)
[2023-11-05] MEDS ORDERED: ALUM & MAG HYDROX-SIMETHICONE 30 ML PO ONE (09:15)
[2023-11-05 09:32] LABS: BASO% 0.6 % (0-3); EOS% 2.4 % (0-8); HEMATOCRIT 37.4 % (37.0-47.0); HEMOGLOBIN 11.6 g/dl (12.0-16.0); IMMATURE GRANULOCYTES 0.2 % (0.0-5.0); LYMPH% 33.8 % (15-41); MEAN CELL VOLUME 87.6 fL CALC (80.0-100.0); MEAN CORPUSCULAR HGB 27.2 pG CALC (26.0-32.0); MONO% 9.3 % (2-13); NEUT# 3.43 thou/uL (2.00-7.15); NEUT% 53.7 % (42-76); RED BLOOD COUNT 4.27 mill/uL (4.20-5.60); RED CELL DISTRI WIDTH 15.4 % (11.5-15.5)
[2023-11-05 09:37] LABS: ALBUMIN 4.6 g/dL (3.2-5.0); ALKALINE PHOSPHATASE 81 u/l (38-126); ANION GAP 10 (6-22 (CALC)); BILIRUBIN, TOTAL 0.3 mg/dL (0.02-1.3); BUN 12 mg/dL (8-23); BUN/CREATININE RATIO 16 (12-20 (CALC)); CARBON DIOXIDE 27 mmol/l (22-30); CHLORIDE 106 mmol/l (95-108); CREATININE 0.8 mg/dL (0.5-1.0); ESTIMATED GFR 78 ML/MIN (>=90 (CALC)); POTASSIUM 4.3 mmol/l (3.5-5.1); SGOT/AST 26 u/l (9-36); SODIUM 139 mmol/l (137-146); TOTAL PROTEIN 7.7 g/dL (6.3-8.2)
[2023-11-05] MEDS ORDERED: ONDANSETRON HCl 4 MG/2 ML SDV IV ONE (10:15)
[2023-11-05] MEDS ORDERED: CARAFATE PO (12:40)
[2023-11-05] MEDS ORDERED: PEPCID20 MG PO (12:40)
== END 2023-11-05 12:51 | disposition home or self-care (01) ==
LOC: ED 08:55
PROVIDERS: Family Medicine
DX: R10.13 Epigastric pain (principal); I10 Essential (primary) hypertension; K21.9 Gastro-esophageal reflux disease without esophagitis; F41.9 Anxiety disorder, unspecified

== ENCOUNTER 2024-03-29 18:59 | Inpatient (IN) | payer MEDICARE, OTHER ==
[~2024-03-29] VITALS: Ht 160 cm; Wt 54.4 kg
[2024-03-29] VITALS (9 sets, daily range): BP systolic 92–127; BP diastolic 48–76
[~2024-03-29 18:59] MED LIST changes: -EFFEXOR XR150 MG PO; +PEPCID20 MG PO
--- NOTE | 2024-03-29 19:15 | NUR ---
PT TO RM #6 VIA W/C NOTIFIED OF PT.
[2024-03-29] MEDS ORDERED: MORPHINE SULFATE 4 MG/ML VIAL IV STA (19:28)
[2024-03-29] MEDS ORDERED: Pantoprazole Sodium 40 MG VIAL (Protonix) IV STA (19:28)
[2024-03-29] MEDS ORDERED: SODIUM CHLORIDE 0.9% 1,000 ML IV STA (19:28)
[2024-03-29] MEDS ORDERED: PROMETHAZINE HCL 25 MG/ML AMP IV ONE (19:30)
--- NOTE | 2024-03-29 20:00 | NUR ---
PATIENT LYING IN BED WITH NO ACUTE DISTRESS NOTED AT THIS TIME.
[2024-03-29 20:11] LABS: BASO% 0.5 % (0-3); EOS% 1.4 % (0-8); IMMATURE GRANULOCYTES 0.3 % (0.0-5.0); LYMPH% 25.8 % (15-41); MEAN CORPUSCULAR HGB CONC 30.3 g/dL CAL (32.0-36.0); MONO% 7.6 % (2-13); NEUT# 6.78 thou/uL (2.00-7.15); NEUT% 64.4 % (42-76); RED BLOOD COUNT 3.19 mill/uL (4.20-5.60); RED CELL DISTRI WIDTH 14.9 % (11.5-15.5)
[2024-03-29 20:14] LABS: HEMATOCRIT 28.4 % (37.0-47.0); HEMOGLOBIN 8.6 g/dl (12.0-16.0)
[2024-03-29 20:26] LABS: ALBUMIN 3.8 g/dL (3.2-5.0); CREATININE 0.8 mg/dL (0.5-1.0)
[2024-03-29 20:27] LABS: BILIRUBIN, TOTAL 0.1 mg/dL (0.02-1.3)
--- NOTE | 2024-03-29 22:00 | NUR ---
NO ACUTE DISTRESS NOTED. BED LOCKED, IN LOW POSITION, CALL LIGHT WITHIN REACH.
[2024-03-29] MEDS ORDERED: SODIUM CHLORIDE 0.9% 1,000 ML IV PRN (22:05)
[2024-03-29] MEDS ORDERED: PROMETHAZINE HCL 25 MG/ML AMP IV PRN (22:05)
[2024-03-29] MEDS ORDERED: FAMOTIDINE 10MG/ML 2ML SDV IV PRN (22:05)
[2024-03-29] MEDS ORDERED: MORPHINE SULFATE 4 MG/ML VIAL IV PRN (22:05)
[2024-03-29] MEDS ORDERED: ONDANSETRON 4 MG/TAB ODT PO PRN (22:05)
[2024-03-29] MEDS ORDERED: ONDANSETRON HCl 4 MG/2 ML SDV IV PRN (22:05)
[2024-03-29 23:14] LABS: URINE BILIRUBIN - DIPSTICK Negative (NEGATIVE); URINE BLOOD DIPSTICK Negative (NEGATIVE); URINE GLUCOSE - DIPSTICK Negative (NEGATIVE); URINE KETONE Negative (NEGATIVE); URINE LEUK ESTERASE Negative (NEGATIVE); URINE NITRITE - DIPSTICK Negative (Negative); URINE PROTEIN - DIPSTICK Negative (NEG-TRACE); URINE SPECIFIC GRAVITY 1.015; URINE UROBILINOGEN - DIPSTICK 0.2 E.U./dL (0.2)
--- NOTE | 2024-03-29 23:15 | NUR ---
ATTEMPTED TO GIVE REPORT. NURSE BUSY AT THIS TIME.
[2024-03-29 23:21] LABS: URINE COLOR Yellow
[2024-03-29] MEDS ORDERED: BUSPAR10 MG PO (23:22)
--- NOTE | 2024-03-29 23:40 | NUR ---
PATIENT PULLED OUT IV, NEW IV STARTED IN THE RIGHT HAND.
[2024-03-30] VITALS (8 sets, daily range): BP systolic 123–166; BP diastolic 64–85
--- NOTE | 2024-03-30 00:05 | NUR ---
Pt arrived to [facility] via wheelchair. Pt is alert and orient. She is able to make needs known. Pt is to remain NPO until further notice. Pt states she is currently pain free. Pt colostomy bag in place to left abdomen. Pt breathing even and non-labored on room air. Pt oriented to room, bed control and all saftey measures. Bed is in low position with call light within reach.
--- NOTE | 2024-03-30 00:05 | NUR ---
REPORT GIVEN PATIENT TAKEN TO ROOM 261 VIA WHEELCHAIR. PATIENT IN STABLE CONDITION.
--- NOTE | 2024-03-30 03:57 | NUR ---
Pt up ambulating with assitance to bathroom without difficulty. PRN pain medication administered for abdominal pain. Pt colosotomy bag to left abdomen intact with small amount of brown fluid inside. No distress noted. Breathing remains even and non-labored. Bed in low position with call light within reach.
--- NOTE | 2024-03-30 07:00 | NUR ---
REPORT RECEIVED FROM NATI BOWSER
--- NOTE | 2024-03-30 08:00 | NUR ---
PT RESTING IN SEMI FOWLERS POSITION,A&O X3;PT REPORTS ABDOMINAL PAIN RATING 7/10 ON THE PAIN SCALE AND IS MEDICATED WITH PRN MORPHINE 4MG SLOW IVP PER REQUEST;ASSESSMENT COMPLETED;RESPIRATIONS EVEN AND UNLABORED ON RA, CLEAR LUNG SOUNDS;ABDOMEN SOFT ON PALPATION AND ACTIVE IN ALL 4 QUADRANTS;LUQ COLOSTOMY BAG NOTED WITH RED STOMA-SMALL AMOUNT OF LOOSE/BROWN STOOL NOTED;STRONG PEDAL;PULSES;SKIN INTACT;#22G TO RH INFUSING NS @ 125ML/HR,SITE APPEARS HEALTHY;NPO DIET REINFORCED AND PT VERBALIZES UNDERSTANDING;PT DENIES ANY ADDITIONAL NEEDS AND IS ENCOURAGED TO CALL FOR ASSISTANCE IF NEEDED;FALL PRECAUTIONS NOTED WITH BED IN THE LOWEST POSITION AND CALL LIGHT IN REACH;FREQUENT ROUNDS MADE.
--- NOTE | 2024-03-30 09:39 | NUR ---
AT BEDSIDE DISCUSSING POC WITH PT.
[2024-03-30] MEDS ORDERED: MAGNESIUM CITRATE 296 ML/BTL PO SCH ×2 (11:00→14:00)
--- NOTE | 2024-03-30 11:50 | NUR ---
PT RESTING IN SEMI FOWLERS POSITION WITH SPOUSE AT BEDSIDE;RESPIRATIONS EVEN AND UNLABORED ON RA;PT REPORTS ABDOMINAL PAIN RATING 6/10 ON THE PAIN SCALE AND IS MEDICATED WITH PRN MORPHINE 4MG SLOW IVP PER ORDER;IV SITE TO RH REMAINS PATENT INFUSING NS WITH EASE;NPO DIET REINFORCED;PT DENIES ANY ADDITIONAL NEEDS AND IS ENCOURAGED TO CALL FOR ASSISTANCE IF NEEDED;FALL PRECAUTIONS REMAIN IN PLACE WITH CALL LIGHT IN REACH AND BED ALARM ON FOR SAFETY;FREQUENT ROUNDS MADE.
--- NOTE | 2024-03-30 13:31 | NUR ---
CALL PLACED TO ULTRASOUND BY HAILE BERGER. ULTRASOUND REPORTED THEY WOULD BE IN 03/31/24 @0900 TO COMPLETE SCAN. NOTIFIED AND ORDER OBTAINED FOR CLEAR LIQUID DIET, FOLLOWED BY NPO AT MIDNIGHT.
--- NOTE | 2024-03-30 14:48 | NUR ---
PT MEDICATED WITH PRN PHENERGAN 25MG SLOW IVP FOR NAUSEA
--- NOTE | 2024-03-30 15:15 | NUR ---
PT MEDICATED WITH MORPHINE 4MG SLOW IVP FOR ABDOMINAL PAIN RATING 6/10 ON THE PAIN SCALE.
--- NOTE | 2024-03-30 15:50 | NUR ---
PT APPEARS TO BE SLEEPING IN SUPINE POSITION;RESPIRATIONS APPEAR EVEN AND UNLABORED ON RA;IV SITE TO RH REMAINS PATENT INFUSING NS PER ORDER;ALL SAFETY PRECAUTIONS REMAIN IN PLACE WITH BED IN THE LOWEST POSITION AND BED ALARM IN PLACE;CALL LIGHT IN REACH;FREQUENT ROUNDS MADE.
--- NOTE | 2024-03-30 18:18 | NUR ---
PT MEDICATED WITH PRN MORPHINE 4MG SLOW IVP FOR ABDOMINAL PAIN RATING 6/10 ON THE PAIN SCALE
--- NOTE | 2024-03-30 19:35 | NUR ---
Pt is alert and orient and able to make needs known. No distress noted at this time. Pt bed alarm in place and active. No report of pain or discomfort at this time. No distress noted. Bed in low position with call light within reach.
--- NOTE | 2024-03-30 23:33 | NUR ---
Pt is laying in bed with her eyes closed. No complaint of pain or discomfort since last pain medication dose. No distress noted at this time. Pt is breathing even and non-labored. Bed in low position with call light within reach.
--- NOTE | 2024-03-31 04:26 | NUR ---
Pt up in room ambulating to the bathroom with assistance. Some abdominal discomfort to left side of abdomem. Colostomy bag in place with brown liquid stool noted.
[2024-03-31 05:08] VITALS: BP 152/91
[2024-03-31 05:27] LABS: BASO% 0.3 % (0-3); EOS% 1.9 % (0-8); HEMOGLOBIN 9.7 g/dl (12.0-16.0); IMMATURE GRANULOCYTES 0.2 % (0.0-5.0); LYMPH% 19.4 % (15-41); MEAN CELL VOLUME 89.4 fL CALC (80.0-100.0); MEAN CORPUSCULAR HGB 27.1 pG CALC (26.0-32.0); MEAN CORPUSCULAR HGB CONC 30.3 g/dL CAL (32.0-36.0); MONO% 9.7 % (2-13); NEUT# 6.55 thou/uL (2.00-7.15); NEUT% 68.5 % (42-76); RED BLOOD COUNT 3.58 mill/uL (4.20-5.60); RED CELL DISTRI WIDTH 14.8 % (11.5-15.5)
[2024-03-31 05:31] LABS: ALBUMIN 3.5 g/dL (3.2-5.0); CREATININE 0.6 mg/dL (0.5-1.0); TOTAL PROTEIN 6.6 g/dL (6.3-8.2)
[2024-03-31 05:35] LABS: BILIRUBIN, TOTAL 0.3 mg/dL (0.02-1.3)
[2024-03-31 06:32] VITALS: BP 170/81
--- NOTE | 2024-03-31 07:25 | NUR ---
PT LAYING IN BED RESTING WITH EYES CLOSED, AROUSES EASILY TO VERBAL STIMULI, PUPILS PERRL, RESP. EVEN AND UNLABORED, LUNG SOUNDS ARE CLEAR, ABD DISTENDED AND SOFT WITH ACTIVE BOWEL SOUNDS, COLOSTOMY WITH A SMALL AMOUNT OF BROWN LIQUID STOOL, STRONG RADIAL AND PEDAL PULSES, 22G LH IV WITH FLUIDS INFUSING AT PRESCRIBED RATE, SAFETY MEASURES REINFORCED, CALL BROUSSARD WITHIN REACH
--- NOTE | 2024-03-31 08:55 | NUR ---
PT TO US VIA WC ACCOMPANIED BY A PUBLIC TRANSIT BUS DRIVER
--- NOTE | 2024-03-31 12:00 | NUR ---
PT SITTING UP IN THE RECLINER, TALKING TO SPOUSE AT BEDSIDE, PT DENIES ANY NEEDS AT THIS TIME, PT REMINDED TO CALL FOR ASSISTANCE, CALL BROUSSARD WITHIN REACH
[2024-03-31] MEDS ORDERED: Peg 3350-POTASSIUM CHLORIDE-So 4,000 ML BTL PO SCH (13:00)
[2024-03-31 15:17] VITALS: BP 144/73
--- NOTE | 2024-03-31 16:00 | NUR ---
PT SITTING UP IN THE BED WATCHING TV, PT VERBALIZES NO NEEDS AT THIS TIME
[2024-03-31 18:35] VITALS: BP 174/84
--- NOTE | 2024-03-31 19:45 | NUR ---
PATIENT IN ROOM RESTING IN BED AWAKE. BED SIDE ASSESSMENT COMPLETE. EUAL UNLABORED RESP. LUNG SOUNDS CLEAR. COLOSTOMY IN PLACE WITH MODERATE AMOUNT OF LIQUID BROWN STOOL. STRONG EQUAL PEDAL PULSES. SAFTY PRECAUTIONS IN PLACE. BED AT LOWEST POSITION. CALL LIGHT WITH IN REACH.
[2024-04-01] VITALS (13 sets, daily range): BP systolic 138–157; BP diastolic 60–86
--- NOTE | 2024-04-01 00:13 | NUR ---
PATIENT IN ROOM RESTING IN BED AWAKE PATIENT STATED SHE FELT NAUSEOUS. GAVE ZOFRAN PER EMAR. EQUAL UNLABORED RESP, NO VISUAL SIGHNS OF DISTRESS. BED AT LOWEST POSITION. CALL LIGHT WITH IN REACH.
--- NOTE | 2024-04-01 00:15 | NUR ---
PATIENT COULD NOT FINISH NULYTELY DUE TO NAUSEA AND VOMITING. ABOUT 400 CC LEFT IN BOTTLE. OUT PUT IN COLOSTOMY BAG CLEAR YELLOW.
--- NOTE | 2024-04-01 04:38 | NUR ---
PATIENT IN ROOM RESTING IN BED WITH EYES OPEN. PATIENT RESPONDS TO VERBAL STIMULI. EQUAL UNLABORED RESP. NO VISUAL SIGNS OF DISTRESS. BED AT LOWEST POSITION. CALL LIGHT WITH IN REACH.
--- NOTE | 2024-04-01 07:59 | NUR ---
REPORT RECEIVED FROM NIGHT NURSE. PT IS A/O. FAMILY AT BEDSIDE. OR STAFF AT BEDSIDE TO TAKE PT TO SURGERY. PT IN GOOD CONDITION AND ABLE TO AMBULATE TO [facility]ER INDEPENDENTLY.
[2024-04-01] MEDS ORDERED: PIPERACILLIN Sodium-Tazobactam 3.375 GM in SODIUM CHLORIDE 0.9% 100 ML IV SCH (08:00)
[2024-04-01] MEDS ORDERED: SODIUM CHLORIDE 0.9% 10 ML SYR ONE (08:08)
[2024-04-01] MEDS ORDERED: LIDOcaine HCl 1% (Local Anesth.) 20 ML VIAL ONE (08:21)
[2024-04-01] MEDS ORDERED: LIDOCAINE HCL 1% (10MG/ML) 100 MG/10 ML MDV ONE (08:22)
[2024-04-01] MEDS ORDERED: FAMOTIDINE 10MG/ML 2ML SDV IV ONE (08:23)
[2024-04-01] MEDS ORDERED: SODIUM CHLORIDE 0.9% 1,000 ML IV ONE (08:23)
[2024-04-01] MEDS ORDERED: ONDANSETRON HCl 4 MG/2 ML SDV ONE ×2 (08:38→13:46)
[2024-04-01] MEDS ORDERED: DEXAMETHASONE SODIUM PHOSPHATE PF 10 MG/ML SDV IV ONE (11:42)
[2024-04-01] MEDS ORDERED: SUCCINYLCHOLINE CHLORIDE 20 MG/ML 10ML VIAL IV ONE (11:42)
[2024-04-01] MEDS ORDERED: PHENYLEPHRINE HCL 10 MG/ML VIAL IV ONE (11:42)
[2024-04-01] MEDS ORDERED: VASOPRESSIN 20 UNITS/ML VIAL IV ONE (11:42)
[2024-04-01] MEDS ORDERED: PROPOFOL 200 MG/20 ML VIAL IV ONE ×2 (11:42)
[2024-04-01] MEDS ORDERED: LIDOCAINE HCL 2% 2ML SDV IV ONE (11:42)
[2024-04-01] MEDS ORDERED: ROCURONIUM BROMIDE 10 MG/ML 5ML VIAL IV ONE (11:42)
[2024-04-01] MEDS ORDERED: SUGAMMADEX SODIUM 200 MG/2 ML SDV IV ONE (11:42)
[2024-04-01] MEDS ORDERED: HETASTARCH 500 ML IV ONE (11:42)
--- NOTE | 2024-04-01 12:00 | NUR ---
pt remains off unit
[2024-04-01] MEDS ORDERED: ACETAMINOPHEN 100 ML IV ONE (13:26)
[2024-04-01] MEDS ORDERED: STERILE WATER FOR IRRIGATION 1,000 ML BTL IR ONE (13:37)
[2024-04-01] MEDS ORDERED: SODIUM CHLORIDE 1,000 ML BTL IR ONE (13:37)
[2024-04-01] MEDS ORDERED: HYDROmorphone HCL 2 MG/AMP ONE (13:40)
[2024-04-01] MEDS ORDERED: HYDROmorphone HCL 2 MG/AMP IV PRN (13:40)
[2024-04-01] MEDS ORDERED: BENZOCAINE-MENTHOL (MOUTH-THRO 1 LOZ LOZ MT PRN (13:40)
--- NOTE | 2024-04-01 14:33 | NUR ---
PT ARRIVED TO [facility] VIA HOSPITAL BED BY OR STAFF. PT ALERT AND ORIENTED X3 BUT DROWSY. IV FLUIDS INFUSING AT 125ML/HR. O2 @ 2L/M VIA NC. DRESSING NOTED TO LOWER ABD, CDI. JOCELYN DRAIN X1 WITH MINIMAL AMOUNT OF SANGUINEOUS DRAINAGE NOTED. FLORES IN PLACE DRAINING TO GRAVITY. VSS. CALL LIGHT WITHIN REACH. WILL CONTINUE TO MONITOR.
--- NOTE | 2024-04-01 17:15 | NUR ---
Pt is alert and orient and able to make needs known. Assessment complete. Pt is laying on her back, NO distress noted. NG tube in place with inter low suctioning. Scant amount of green bile noted in canister. Pt states she is having some abdominal discomfort. Abdominal dressing clean dry and intact. JOCELYN drain to abdomen patent draining dark red fluid. Pt is breathing even and non-labored. Aguirre in place draining yellow clear urine. Bed in low position with call light within reach.
--- NOTE | 2024-04-01 23:59 | NUR ---
Pt resting in bed on her back with her eyes closed. No distress noted. NG tube in place and intact. JOCELYN drain in place with abd dressing CDI. Aguirre patent draining yellow urine. No complaint from pt at this time. Bed in low position with call light within reach.
[2024-04-02] VITALS (10 sets, daily range): BP systolic 137–170; BP diastolic 62–79
--- NOTE | 2024-04-02 04:04 | NUR ---
Pt is alert and awake. PRN pain medication administered for abdominal pain. Pt sates she will try to get up and ambulate once she feels less pain. NG tube remains in place. JOCELYN drain patent. Aguirre in place draining yellow urine. No distress noted. Will continue to monitor.
[2024-04-02 05:23] LABS: BASO% 0.2 % (0-3); IMMATURE GRANULOCYTES 0.3 % (0.0-5.0); LYMPH% 9.5 % (15-41); MEAN CELL VOLUME 93.8 fL CALC (80.0-100.0); MEAN CORPUSCULAR HGB 27.5 pG CALC (26.0-32.0); MEAN CORPUSCULAR HGB CONC 29.3 g/dL CAL (32.0-36.0); MONO% 11.7 % (2-13); NEUT# 9.36 thou/uL (2.00-7.15); NEUT% 78.3 % (42-76); RED BLOOD COUNT 2.73 mill/uL (4.20-5.60); RED CELL DISTRI WIDTH 14.9 % (11.5-15.5)
[2024-04-02 05:27] LABS: HEMATOCRIT 25.6 % (37.0-47.0); HEMOGLOBIN 7.5 g/dl (12.0-16.0)
[2024-04-02 05:55] LABS: BILIRUBIN, TOTAL 0.3 mg/dL (0.02-1.3); CREATININE 0.6 mg/dL (0.5-1.0); POTASSIUM 4.5 mmol/l (3.5-5.1)
[2024-04-02 06:03] LABS: ALBUMIN 2.5 g/dL (3.2-5.0); TOTAL PROTEIN 5.1 g/dL (6.3-8.2)
[2024-04-02 06:30] LABS: HEMATOCRIT 25.4 % (37.0-47.0); HEMOGLOBIN 7.4 g/dl (12.0-16.0)
--- NOTE | 2024-04-02 06:47 | NUR ---
Notified Md of pt HGB dropping from 9.7 to 7.4.
[2024-04-02] MEDS ORDERED: FAMOTIDINE 10MG/ML 2ML SDV IV SCH (09:00)
--- NOTE | 2024-04-02 11:09 | NUR ---
spoke with Dr. King about NG tube dislodgement, last Hemoglobin of 7.4 and Patient consistent q2 hr pain meds. per Dr. Guerrero NG can remain out, Hgb okay until he does an assessment of her as well as pain meds.
[2024-04-02] MEDS ORDERED: PIPERACILLIN Sodium-Tazobactam 3.375 GM in SODIUM CHLORIDE 0.9% 100 ML IV SCH (12:00)
[2024-04-02] MEDS ORDERED: DiphenhydrAMINE HCL 50 MG/ML SDV IV PRN (12:50)
[2024-04-02] MEDS ORDERED: FUROSEMIDE 40 MG/4 ML SDV IV SCH (16:00)
--- NOTE | 2024-04-02 20:02 | NUR ---
ADMINISTERING BLOOD PER PHYSCIAN ORDER. MANAGER PAID AT BEDSIDE MONITORING PT, PT INFORMED TO LET KNOW IF FEELING ANY SOB, ITCHING OR FLANK PAIN. PT DENIES ANY OF THAT AT THIS TIME. LAYING IN BED SEMI FOWLERS, NASAL CANNULA IN PLACE. PUREIWCK IN PLACE. SCD'S APPLIED. CALL LIGHT WITHIN REACH AND SAFETY PRECAUTIONS IN PLACE.
--- NOTE | 2024-04-02 20:30 | NUR ---
15 MINUTE CHECK @2014 WHEN REASSESSING DURING BLOOD ADMINSITRATION PT STARTED TO C/O ITCHINESS, STATING IT'S SPREADING FROM LOWER EXTREMETIES TO INSIDE OF THIGHS AND WRIST. BLOOD WAS STOPPED IMMEDIATLY, LUMEN FLUSHED. VITAL SIGNS REASSESSED. RN AND NURSING HYDRAULIC LIFT DRIVER INFORMED. NO VISIBLE REDNESS OR VANEGAS NOTED ON PT. PHYSICIAN WAS INFORMED. TORB TO DISCARD FIRST UNIT OF RBC, ADMINSITER BENEDRYL PER EMAR AND THEN TRASNFUSE SECOND UNIT. LAB WAS NOTIFIED OF PT REACTION. PROPER PROTOCOL WAS COMPLETED, BLOOD AND ALL COMPONENTS WERE BAGGED AND BROUGHT TO LAB. PT LAYING IN BED FOLWERS, NASAL CANNULA IN PLACE. EDUCATED ON PLAN OF CARE AND MED SCHEDULE. INFORMED OF PLAN FOR TRANSFUSING SECOND UNIT.
--- NOTE | 2024-04-02 22:15 | NUR ---
ADMINSITERED BENEDRYL PER EMAR, PT TOLERATED WELL. WILL REASSESS ITCHINESS PRIOR TO SECOND UNIT RBC TO BE TRANSFUSED.
--- NOTE | 2024-04-02 22:41 | NUR ---
SECOND UNIT OF BLOOD ADMINISTERING AT THIS TIME. PT LAYING IN BED SEMI FOWELRS, NASAL CANNULA IN PLACE. PT STATED SHE WAS ITCHING BEFORE TRANSFUSION BEGAN BUT STATED "ITS MY NORMAL DRY SKIN ITCHING" DID STATE THAT ITCHINESS FROM EARLIER TRASNFUSION HAS RESOLVED. PT DENIES ANY REACTION SYMPTOMS AT THIS TIME. SOCIAL STAFF WORKER AT BEDSIDE MONITORING PT.
[2024-04-02 22:52] LABS: TXN URINE HEMOLYSIS LARGE (NEGATIVE)
[2024-04-02 22:55] LABS: URINE SQUAMOUS EPITHELIAL CELL FEW EPI/hpf (0-FEW)
[2024-04-03 00:40] VITALS: BP 184/77
--- NOTE | 2024-04-03 01:30 | NUR ---
BLOOD TRANSUFION COMPLETED. PT TOLERATED WELL. PT DID RECEIVE MEDICATION FOR PAIN, DOES HELP WITH PAIN CONTROL HOWEVER PT STATES "IT DOESN'T TAKE THE PAIN AWAY" RELAXTION TECHNIQUES OFFERED WELL ICE CHIPS FOR COMFORT. PT LAYING IN BED SEMI FOWLERS, NASAL CANNULA IN PLACE. ENCOURAGED TO TRY AND GET SOME REST AT THIS TIME. SCD'S ON. IVF RUNNING PER EMAR. VSS. CALL LIGHT WITHIN REACH AND SAFETY PRECAUTIONS IN PLACE.
[2024-04-03 03:45] VITALS: BP 154/81
--- NOTE | 2024-04-03 04:46 | NUR ---
DSG CHANGED. THREE OPEN AREAS NOTED TO ABD, ALL PACKED WITH FLUFF GAUZE, TELFA PLACED OVER WITH ABD PAD. SPLIT SPONGE CHANGED OUT ON JOCELYN DRAIN. PT TOLERATED DSG CHANGE WELL. PAIN MEDICAITON WAS ADMINISTERED BEFOREHAND. PT LAYING IN BED SEMI FOWLERS, ICE CHIPS OFFERED FOR DRY MOUTH. VSS. NO S/S OF DISTRESS. NASAL CANNULA IN PLACE. CALL LIGHT WIHTIN REACH AND SAFETY PRECAUTIONS IN PLACE.
[2024-04-03 05:06] LABS: BASO% 0.1 % (0-3); HEMATOCRIT 25.2 % (37.0-47.0); HEMOGLOBIN 8.1 g/dl (12.0-16.0); IMMATURE GRANULOCYTES 0.2 % (0.0-5.0); LYMPH% 12.5 % (15-41); MEAN CORPUSCULAR HGB 27.8 pG CALC (26.0-32.0); MEAN CORPUSCULAR HGB CONC 32.1 g/dL CAL (32.0-36.0); MONO% 11.6 % (2-13); NEUT# 10.29 thou/uL (2.00-7.15); NEUT% 75.6 % (42-76); RED BLOOD COUNT 2.91 mill/uL (4.20-5.60); RED CELL DISTRI WIDTH 14.8 % (11.5-15.5)
[2024-04-03 05:08] LABS: MEAN CELL VOLUME 86.6 fL CALC (80.0-100.0)
[2024-04-03 05:19] LABS: CREATININE 0.6 mg/dL (0.5-1.0)
[2024-04-03 05:28] LABS: POTASSIUM 3.4 mmol/l (3.5-5.1)
--- NOTE | 2024-04-03 07:21 | NUR ---
PATIENT LAYING IN BED. PATIENT A&OX4 AND ABLE TO MAKE NEEDS KNOWN. PATIENT C/O ABDOMEN PAIN, MEDS GIVEN PER MAR. PATIENT DENIES ANY NEEDS AT THIS TIME.
[2024-04-03 07:22] VITALS: BP 177/83
[2024-04-03] MEDS ORDERED: oxyCODONE 5MG/ ACETAMINOPHEN 325MG TAB PO PRN (11:05)
[2024-04-03] MEDS ORDERED: HYDROmorphone HCL 2 MG/AMP IV PRN (11:05)
--- NOTE | 2024-04-03 11:47 | NUR ---
PATIENT LAYING IN BED. SPOUSE AT BEDSIDE. PATIENT DENIES ANY NEEDS AT THIS TIME.
[2024-04-03 15:17] VITALS: BP 158/73
--- NOTE | 2024-04-03 15:49 | NUR ---
PATIENT LAYING IN BED. PATIENT C/O PAIN, MEDS GIVEN PER MAR. PATIENT DENIES ANY OTHER NEEDS AT THIS TIME.
[2024-04-03 18:29] VITALS: BP 156/65
--- NOTE | 2024-04-03 19:45 | NUR ---
PT BACK TO BED ASKING FOR PAIN MEDICATION OF ABD PAIN 11/14. ASSESSMENT DONE AFTER IV DILAUDID GIVEN. ABD DRESSING INTACT NO DRAINAGE. JOCELYN DRAIN WITH SEROSANGUINEOUS FLUID. VS WNL ON RA LUNGS CLEAR. NO EDEMA NOTED. RIJ CENTRAL LINE FLUSHED WORKING PROPERLY SL. CALL LIGHT WITHIN REACH. PLAN OF CARE ONGOING.
--- NOTE | 2024-04-04 00:45 | NUR ---
PT SLEEPING EASILY AROUSABLE NO DISTRESS NOTED. IV ABX GIVEN. CALL LIGHT WITHIN REACH. PLAN OF CARE ONGOING.
--- NOTE | 2024-04-04 04:00 | NUR ---
PT RESTING NO DISTRESS NOTED. CALL LIGHT WITHIN REACH. PLAN OF CARE ONGOING.
[2024-04-04 04:20] VITALS: BP 144/66
--- NOTE | 2024-04-04 07:18 | NUR ---
PATIENT ALERT X-4 RESTING C/O PAIN . WILL BE TREATED.
[2024-04-04 07:39] VITALS: BP 144/58
[2024-04-04] MEDS ORDERED: oxyCODONE 10MG/APAP 325 MG 1 COMBO TAB PO PRN (09:50)
--- NOTE | 2024-04-04 10:20 | NUR ---
PATIENT EDUCATED ON PAIN MANAGEMENT. TOLERATED IV FLUSH AND PAIN MED WELL.
[2024-04-04] MEDS ORDERED: CIPROFLOXACIN HCL 500 MG/TAB PO SCH (10:30)
--- NOTE | 2024-04-04 10:43 | NUR ---
PATIENT JOCELYN DRAINE REMOVED 22CC AND WAS WELL TOLERATED
--- NOTE | 2024-04-04 12:48 | NUR ---
patient resting gonzalez removed . NO C/O PAIN DID C/O OF NAUSEA WAS TREATED.
--- NOTE | 2024-04-04 14:00 | NUR ---
PATIENT IS RESTING PAIN MANAGED. ALERT X4 NO C/O DISCOMFORT. REMOVED RUE IV.
[2024-04-04 15:37] VITALS: BP 165/74
[2024-04-04 18:32] VITALS: BP 161/71
[2024-04-04 18:35] VITALS: BP 161/71
--- NOTE | 2024-04-04 19:49 | NUR ---
RECEVIED REPORT FROM DAYSHIFT NURSE. PT NOTED SITTING UP IN CHAIR, RM AIR. PT IS A/OX3, EXPRESSES "FEELING BETTER THEN BEFORE" PT DOES STILL C/O PAIN BUT DOES STATE THERE HAS BEEN IMPROVEMENT. PT STATES THEY HAVE BEEN PASSING GAS, NO BM TODAY BUT DID HAVE ON YESTERDAY. DSGS NOTED TO ABD, CDI. ABD IS SOFT AND TENDER. NURSING ASSESSMENT COMPLETED, RIJ NOTED SALINE LOCK. ALL LUMENS FLUSH W/O DIFFICULTY. EDUCATED PT ON PLAN OF CARE, DSG CHANGE SCHEDULE, AND MED SCHEDULE. WILL ADMINISTER PAIN MEDICATION PRIOR TO DSG CHANGE. VSS. NO S/S OF DISTRESS. CALL LIGHT WITHIN REACH AND SAFETY PRECAUTIONS IN PLACE.
--- NOTE | 2024-04-04 21:56 | NUR ---
DSG CHANGE COMPLETED. DSG CHANGE AND WOUND CARE EDUCATION OFFERED. SORTING COWS WORKER DID ENCOURAGE HANDS ON LEARNING WITH PT. PT WAS ABLE TO PERFROM DEMONSTRATION OF REMOVING PACKING FROM WOUND AND REPACKING WITH GAUZE, SOME ASSISTANCE WAS NEEDED. PT DID EXPRESS FEELING ANXIOUS AND UNSURE ABOUT DOING OWN DSG CHANGES WHEN SENT HOME. ENCOURAGED PT TO SPEAK WITH CASE MANAGEMENT AND PHYSICIAN TOMORROW. WILL LEAVE NOTE IN AM FOR BOTH. MIDLINE INCISION NOTED WITH THREE OPEN WOUNDS AND 15 SWATHI. ALL THREE WOUNDS WERE CLEANED AND REPACKED PER DSG CHANGE ORDER. OPEN WOUND NOTED TO LUQ THAT WAS CLEANED AND PACKED PER ORDER. NO REDNESS OR FOUL ODOR NOTED, MODERATE AMOUNT OF SEROSANGUINEOUS DRAINAGE NOTED. DSGS COVERED WITH TELFA AND ABD PADS.
[2024-04-05 04:33] LABS: BASO% 0.2 % (0-3); EOS% 0.9 % (0-8); HEMATOCRIT 25.8 % (37.0-47.0); HEMOGLOBIN 8.4 g/dl (12.0-16.0); IMMATURE GRANULOCYTES 0.3 % (0.0-5.0); LYMPH% 14.1 % (15-41); MEAN CORPUSCULAR HGB CONC 32.6 g/dL CAL (32.0-36.0); MONO% 9.8 % (2-13); NEUT# 7.81 thou/uL (2.00-7.15); NEUT% 74.7 % (42-76); RED CELL DISTRI WIDTH 15.1 % (11.5-15.5)
[2024-04-05 04:34] VITALS: BP 156/78
[2024-04-05 04:36] LABS: CREATININE 0.4 mg/dL (0.5-1.0)
[2024-04-05 04:44] LABS: POTASSIUM 2.5 mmol/l (3.5-5.1)
--- NOTE | 2024-04-05 05:26 | NUR ---
PT LAYING IN BED SUPINE, RESTING COMFORTABLY AT THIS TIME. VSS. NO S/S OF DISTRESS. CALL LIGHT WITHIN REACH AND SAFETY PRECAUTIONS IN PLACE.
[2024-04-05 06:00] VITALS: BP 156/78
--- NOTE | 2024-04-05 06:58 | NUR ---
PATIENT LAYING IN BED. PATIENT A&OX4 AND ABLE TO MAKE NEEDS KNOWN. PATIENT DENIES ANY NEEDS AT THIS TIME.
[2024-04-05 07:07] VITALS: BP 153/78
[2024-04-05] MEDS ORDERED: POTASSIUM CHLORIDE 20MEQ 100 ML IV SCH (09:00)
[2024-04-05] MEDS ORDERED: KLOR-CON M2020 MEQ PO (10:31)
--- NOTE | 2024-04-05 11:38 | NUR ---
PATIENT LAYING IN BED. SPOUSE AT BEDSIDE. PATIENT DENIES ANY NEEDS AT THIS TIME.
--- NOTE | 2024-04-05 15:00 | NUR ---
THIS CRIB ATTENDANT COMPLETED NURSE TO NURSE REPORT WITH MAY AT [facility].
--- NOTE | 2024-04-05 15:53 | NUR ---
PATIENT LAYING IN BED. DRESSING CHANGED COMPLETED, PATIENT TOLERATED WELL. RIGHT CENTRAL LINE SITED DISCONTINIUED AND DRESSING APPLIED, CLEAN, DRY AND INTACT. SPOUSE AT BEDSIDE. PATIENT DENIES ANY NEEDS AT THIS TIME.
--- NOTE | 2024-04-05 17:26 | NUR ---
Discharge instructions given. Patient verbalizes understanding of same. Discharged in stable condition via Medical Transport to *Other with staff. All belongings sent with pt.
== END 2024-04-05 17:25 | DRG 331 ==
LOC: ED 18:59 → ED-I 21:50 → ED 22:05 → MS2 22:06
PROVIDERS: Family Medicine; Internal Medicine; ADMIT Surgery; ATTEND Surgery
PROC: 0DSL0ZZ Reposition Transverse Colon, Open Approach (ICD-10-PCS; principal; 2024-04-01)
PROC: 0DB80ZZ Excision of Small Intestine, Open Approach (ICD-10-PCS; 2024-04-01)
PROC: 0DBN0ZZ Excision of Sigmoid Colon, Open Approach (ICD-10-PCS; 2024-04-01)
PROC: 0DN80ZZ Release Small Intestine, Open Approach (ICD-10-PCS; 2024-04-01)
PROC: 05HM33Z Insertion of Infusion Device into Right Internal Jugular Vein, Percutaneous Approach (ICD-10-PCS; 2024-04-02)
PROC: 30243N1 Transfusion of Nonautologous Red Blood Cells into Central Vein, Percutaneous Approach (ICD-10-PCS; 2024-04-02)
PROC: 30243N1 Transfusion of Nonautologous Red Blood Cells into Central Vein, Percutaneous Approach (ICD-10-PCS; 2024-04-02)
DX: K43.3 Parastomal hernia with obstruction, without gangrene (principal); K21.9 Gastro-esophageal reflux disease without esophagitis; I10 Essential (primary) hypertension; F41.9 Anxiety disorder, unspecified; Z86.718 Personal history of other venous thrombosis and embolism; Z90.49 Acquired absence of other specified parts of digestive tract; Z93.3 Colostomy status
CPT/HCPCS: J0131; J1100; J1171; J1200; J1940; J2405; J2470; J2543; J2550; J2598; J3480; P9016; Q9967

== ENCOUNTER 2024-05-07 12:23 | Emergency (ER) | payer MEDICARE, OTHER ==
[~2024-05-07] VITALS: Ht 160 cm; Wt 52.0 kg
[2024-05-07] VITALS (22 sets, daily range): BP systolic 131–167; BP diastolic 64–111
[~2024-05-07 12:23] MED LIST changes: +BUSPAR10 MG PO; +KLOR-CON M2020 MEQ PO
[2024-05-07] MEDS ORDERED: SODIUM CHLORIDE 0.9% 1,000 ML IV ONE ×2 (12:40→14:35)
[2024-05-07] MEDS ORDERED: MORPHINE SULFATE 4 MG/ML VIAL IV ONE ×3 (12:40→19:05)
[2024-05-07] MEDS ORDERED: ISOVUE-300 (Iopamidol) 100 ML SDV IV ONE (12:40)
[2024-05-07 13:24] LABS: BASO% 0.4 % (0-3); EOS% 1.9 % (0-8); HEMATOCRIT 28.7 % (37.0-47.0); HEMOGLOBIN 8.5 g/dl (12.0-16.0); IMMATURE GRANULOCYTES 0.5 % (0.0-5.0); LYMPH% 20.8 % (15-41); MEAN CELL VOLUME 86.2 fL CALC (80.0-100.0); MEAN CORPUSCULAR HGB 25.5 pG CALC (26.0-32.0); MEAN CORPUSCULAR HGB CONC 29.6 g/dL CAL (32.0-36.0); MONO% 9.1 % (2-13); NEUT# 7.4 thou/uL (2.00-7.15); NEUT% 67.3 % (42-76); RED BLOOD COUNT 3.33 mill/uL (4.20-5.60)
[2024-05-07 13:40] LABS: ALKALINE PHOSPHATASE 117 u/l (38-126); BILIRUBIN, TOTAL 0.3 mg/dL (0.02-1.3); BUN 8 mg/dL (8-23); BUN/CREATININE RATIO 13 (12-20 (CALC)); CHLORIDE 103 mmol/l (95-108); CREATININE 0.6 mg/dL (0.5-1.0); ESTIMATED GFR 95 ML/MIN (>=90 (CALC)); LIPASE 24 u/l (23-300); SGOT/AST 18 u/l (9-36); SODIUM 137 mmol/l (137-146)
[2024-05-07 13:41] LABS: ALBUMIN 3.8 g/dL (3.2-5.0); ANION GAP 13 (6-22 (CALC)); CARBON DIOXIDE 25 mmol/l (22-30); INTERNATIONAL NORMALIZED RATIO 1.1 RATIO (0.7-1.3); POTASSIUM 4.3 mmol/l (3.5-5.1); TOTAL PROTEIN 7.3 g/dL (6.3-8.2)
[2024-05-07 15:59] LABS: URINE BILIRUBIN - DIPSTICK Negative (NEGATIVE); URINE BLOOD DIPSTICK Negative (NEGATIVE); URINE COLOR Yellow; URINE GLUCOSE - DIPSTICK Negative (NEGATIVE); URINE KETONE Negative (NEGATIVE); URINE LEUK ESTERASE Trace (NEGATIVE); URINE NITRITE - DIPSTICK Negative (Negative); URINE PROTEIN - DIPSTICK Negative (NEG-TRACE); URINE SPECIFIC GRAVITY 1.015; URINE UROBILINOGEN - DIPSTICK 0.2 E.U./dL (0.2)
[2024-05-07] MEDS ORDERED: PIPERACILLIN Sodium-Tazobactam 4.5 GM in SODIUM CHLORIDE 0.9% 100 ML IV ONE (19:15)
[2024-05-07] MEDS ORDERED: Levofloxacin 750 mg Premix 150 ML IV ONE (19:30)
[2024-05-07] MEDS ORDERED: PROMETHAZINE HCL 25 MG/ML AMP IV ONE (21:55)
[2024-05-07] MEDS ORDERED: DiphenhydrAMINE HCL 50 MG/ML SDV IV ONE (21:55)
[2024-05-07] MEDS ORDERED: HYDROmorphone HCL 2 MG/AMP IV ONE (21:55)
[2024-05-08] VITALS: BP 137/62
[2024-05-08 01:00] VITALS: BP 141/72
[2024-05-08 01:30] VITALS: BP 141/72
== END 2024-05-08 01:30 ==
LOC: ED 12:23
PROVIDERS: Family Medicine
DX: T81.43XA Infection following a procedure, organ and space surgical site, initial encounter (principal); K65.1 Peritoneal abscess; I10 Essential (primary) hypertension; K21.9 Gastro-esophageal reflux disease without esophagitis; Y83.8 Other surgical procedures as the cause of abnormal reaction of the patient, or of later complication, without mention of misadventure at the time of the procedure; Z90.49 Acquired absence of other specified parts of digestive tract; Z20.822 Contact with and (suspected) exposure to COVID-19
CPT/HCPCS: J1171; J1200; J1836; J2543; J2550; Q9967

== ENCOUNTER 2024-05-25 14:38 | Observation (INO) | payer MEDICARE, OTHER ==
[~2024-05-25] VITALS: Ht 160 cm; Wt 57.0 kg
[2024-05-25] VITALS (21 sets, daily range): BP systolic 133–195; BP diastolic 78–133
--- NOTE | 2024-05-25 14:39 | NUR ---
TO ROOM VIA EMS. NO APPARENT DISTRESS NOTED
[2024-05-25] MEDS ORDERED: SODIUM CHLORIDE 0.9% 1,000 ML IV STA (14:51)
[2024-05-25] MEDS ORDERED: MORPHINE SULFATE 4 MG/ML VIAL IV ONE (15:00)
[2024-05-25] MEDS ORDERED: PROMETHAZINE HCL 25 MG/ML AMP IV ONE (15:00)
--- NOTE | 2024-05-25 16:05 | NUR ---
Reassessment of patient completed. No distress noted.
[2024-05-25 16:19] LABS: BASO% 0.5 % (0-3); EOS% 2.2 % (0-8); HEMATOCRIT 28.6 % (37.0-47.0); HEMOGLOBIN 8.5 g/dl (12.0-16.0); IMMATURE GRANULOCYTES 0.3 % (0.0-5.0); LYMPH% 33.6 % (15-41); MEAN CELL VOLUME 84.1 fL CALC (80.0-100.0); MEAN CORPUSCULAR HGB CONC 29.7 g/dL CAL (32.0-36.0); MONO% 11.3 % (2-13); NEUT# 3.31 thou/uL (2.00-7.15); NEUT% 52.1 % (42-76); RED BLOOD COUNT 3.4 mill/uL (4.20-5.60); RED CELL DISTRI WIDTH 18.2 % (11.5-15.5)
[2024-05-25 16:31] LABS: ALBUMIN 3.3 g/dL (3.2-5.0); CREATININE 0.6 mg/dL (0.5-1.0); POTASSIUM 3.7 mmol/l (3.5-5.1); TOTAL PROTEIN 6.7 g/dL (6.3-8.2)
[2024-05-25 16:35] LABS: BILIRUBIN, TOTAL 0.3 mg/dL (0.02-1.3)
[2024-05-25] MEDS ORDERED: DICYCLOMINE HCL 20 MG/2 ML VIAL IM ONE (16:45)
--- NOTE | 2024-05-25 18:36 | NUR ---
REQUESTING SOMETHING FOR PAIN
[2024-05-25] MEDS ORDERED: MORPHINE SULFATE 4 MG/ML VIAL IV STA (18:59)
[2024-05-25] MEDS ORDERED: PIPERACILLIN Sodium-Tazobactam 3.375 GM in SODIUM CHLORIDE 0.9% 100 ML IV STA (18:59)
--- NOTE | 2024-05-25 19:00 | NUR ---
REPORT RECEIVED FROM NATI LAWSON AT THIS TIME, PT SCREAMING LOUDLY AT STAFF, DUE TO BELIEF STAFF TOOK PHONE, PT NOTED WITH PHONE ON CHEST, PT ADJUSTED FOR COMFORT, EDUCATED ON PLAN OF CARE, AND VOICED UNDERSTANDING, CALL LIGHT PLACED IN PT HAND AT THIS TIME.
[2024-05-25 19:03] LABS: URINE BILIRUBIN - DIPSTICK Negative (NEGATIVE); URINE BLOOD DIPSTICK Negative (NEGATIVE); URINE GLUCOSE - DIPSTICK Negative (NEGATIVE); URINE KETONE Negative (NEGATIVE); URINE LEUK ESTERASE Negative (NEGATIVE); URINE PROTEIN - DIPSTICK Negative (NEG-TRACE); URINE SPECIFIC GRAVITY 1.015; URINE UROBILINOGEN - DIPSTICK 0.2 E.U./dL (0.2)
--- NOTE | 2024-05-25 19:04 | NUR ---
REPORT TO GAB DAMIAN
[2024-05-25 19:05] LABS: URINE COLOR Yellow; URINE NITRITE - DIPSTICK Positive (Negative)
[2024-05-25 19:09] LABS: URINE BACTERIA FEW hpf; URINE SQUAMOUS EPITHELIAL CELL RARE EPI/hpf (0-FEW); URINE WBC 0-2 WBC/hpf (0-5)
[2024-05-25] MEDS ORDERED: metroNIDAZOLE Premix 500 MG/100 ML BAG IV ONE (19:25)
--- NOTE | 2024-05-25 19:59 | NUR ---
PT MEDICATED PER ORDERS, UPDATED ON PLAN OF CARE, WARM BLANKET PROVIDED, NAD NOTED, AWAITING TRANSPORT/REPORT TO [facility].
--- NOTE | 2024-05-25 20:05 | NUR ---
REPORT TO NATI MORALES ON [facility] AT THIS TIME.
--- NOTE | 2024-05-25 20:25 | NUR ---
PT UPDATED ON PLAN OF CARE, AWAITING FOR MD ORDERS AT THIS TIME, ABX RUNNING.
[2024-05-25] MEDS ORDERED: oxyCODONE 5MG/ ACETAMINOPHEN 325MG TAB PO PRN (20:55)
[2024-05-25] MEDS ORDERED: SODIUM CHLORIDE 0.9% 1,000 ML IV PRN (20:55)
[2024-05-25] MEDS ORDERED: MAGNESIUM HYDROXIDE 30 ML UDC PO PRN (20:55)
[2024-05-25] MEDS ORDERED: ACETAMINOPHEN 325 MG/TAB PO PRN (20:55)
[2024-05-25] MEDS ORDERED: ENOXAPARIN SODIUM 40 MG/0.4 ML SYR SC SCH (21:00)
--- NOTE | 2024-05-25 21:10 | NUR ---
PT TRANSPORTED TO [facility] AT THIS TIME VIA STRETCHER AND ALL BELONGINGS, PT AMB WITH STEADY GAIT TO BED. NURSE/HEATSET WINDER OPERATOR AT BEDSIDE.
--- NOTE | 2024-05-25 21:30 | NUR ---
PT ARRIVED TO ROOM @ APPROX 2110 VIA [facility]RECT[facility]. PT AMBULATED TO SCALE FROM [facility]RECTHER THEN TO BED. ASSESSMENT COMPLETED. BOWEL SOUNDS ACTIVE. PT COMPLAINS OF ABD PAIN 6/10. V/S STABLE. PT EDUCATED TO CALL FOR ASSISTANCE PRIOR TO GETTING OUT OF BED. WARM BLANKETS PROVIDED FOR COMFORT. CALL LIGHT IN REACH
[2024-05-25] MEDS ORDERED: CEFEPIME HYDROCHLORIDE 2 GM in SODIUM CHLORIDE 0.9% 100 ML IV SCH (22:45)
--- NOTE | 2024-05-26 | NUR ---
PATIENT RESTING IN BED WITH EYES CLOSED AT THIS TIME. RESPS ARE EVEN AND UNLABRED. IVF NORMAL SALINE INFUSING ORDERED. CALL LIGHT IS WITHIN RECAH AND SAFETY PRECAUTIONS IN PLACE.
[2024-05-26 03:35] VITALS: BP 163/88
--- NOTE | 2024-05-26 04:00 | NUR ---
PT RESTING IN BED WITH EYES CLOSED AT THIS MOMENT. RESPS ARE EVEN AND UNLABORED. NO DISTRESS NOTED. CALL LIGHT IN IN REACH, BED ALARM AND CALL LIGHT IN PLACE.
[2024-05-26 07:49] VITALS: BP 162/88
[2024-05-26 08:55] LABS: ALBUMIN 3.3 g/dL (3.2-5.0); BILIRUBIN, TOTAL 0.4 mg/dL (0.02-1.3); CREATININE 0.4 mg/dL (0.5-1.0); POTASSIUM 3.5 mmol/l (3.5-5.1); TOTAL PROTEIN 6.6 g/dL (6.3-8.2)
[2024-05-26] MEDS ORDERED: PANTOPRAZOLE SODIUM Sesquihydr 40 MG/TAB PO SCH (09:00)
[2024-05-26 09:04] LABS: BASO% 0.5 % (0-3); EOS% 1.5 % (0-8); HEMATOCRIT 27.6 % (37.0-47.0); HEMOGLOBIN 8.5 g/dl (12.0-16.0); IMMATURE GRANULOCYTES 0.1 % (0.0-5.0); MEAN CELL VOLUME 82.4 fL CALC (80.0-100.0); MEAN CORPUSCULAR HGB 25.4 pG CALC (26.0-32.0); MEAN CORPUSCULAR HGB CONC 30.8 g/dL CAL (32.0-36.0); MONO% 7.8 % (2-13); NEUT# 5.91 thou/uL (2.00-7.15); NEUT% 72.1 % (42-76); RED BLOOD COUNT 3.35 mill/uL (4.20-5.60); RED CELL DISTRI WIDTH 18.2 % (11.5-15.5)
--- NOTE | 2024-05-26 09:32 | NUR ---
PT IS FOUND RESTING COMFORTABLY IN BED. PT IS A&O X4 AND STABLE. PT CAN MOVE ALL EXTREMITES AND IS WEAK. PT CAN MAKE HER NEEDS KNOWN; PLAN OF CARE WAS REVIEWED- NO FURTHER NEEDS AT THIS TIME. CALL LIGHT IS WITHIN REACH, BED ALARM IS ON.
[2024-05-26] MEDS ORDERED: CEFEPIME HYDROCHLORIDE 2 GM in SODIUM CHLORIDE 0.9% 100 ML IV SCH (10:00)
[2024-05-26] MEDS ORDERED: LISINOPRIL 5 MG/TAB PO SCH (12:00)
--- NOTE | 2024-05-26 12:25 | NUR ---
PT'S CONDITION REMAINS UNCHANGED. PT IS A&OX4 AND STABLE. CALL LIGHT IS WITHIN REACH.
[2024-05-26 15:58] VITALS: BP 157/77
--- NOTE | 2024-05-26 16:20 | NUR ---
PT'S CONDITION REMAINS THE SAME. PT IS TAKING THE PERCOCET ABOUT EVERY 4-6 HOURS. PT HAS BEEN GETTING UP TO USE THE BATHROOM MORE. CALL LIGHT IS WITHIN REACH; BED ALARM IS ON.
[2024-05-26 18:11] VITALS: BP 155/84
--- NOTE | 2024-05-26 20:00 | NUR ---
RECEEIVED REPORT FROM NURSE MAC, PATIENT RESTING IN BED, TYALKING ON THE PHONE, IV INFUSING WELL ON LEJ 22 NS@ 100CC/HR, LUNG SOUNDS CLEAR, STILL NEED STOOL SPECIMEN AWARE, ACTIVE BOWEL SOUND LBM 05/25, CALL LIGHT IN REACHED.,
--- NOTE | 2024-05-27 00:50 | NUR ---
PATINET RESTING IN BED, EYES CLOSED, BREATHING UNLABORED, PUREWICK DRAINING YELLOW CLEAR URINE, CALL LIGHT WITHIN REACHED, SAFETY PRECAUTION REINFORCED.
--- NOTE | 2024-05-27 04:42 | NUR ---
PHLEMBOTOMIST IN ROOM, PATIENT NOT IN DISTRESS, BREATHING EVEN UNLABORED CALL LIGHT WITHIN REACHED.
[2024-05-27 04:46] VITALS: BP 163/99
[2024-05-27 05:35] LABS: BASO% 0.6 % (0-3); EOS% 2.8 % (0-8); HEMATOCRIT 28.4 % (37.0-47.0); HEMOGLOBIN 8.6 g/dl (12.0-16.0); IMMATURE GRANULOCYTES 0.1 % (0.0-5.0); LYMPH% 23.7 % (15-41); MEAN CELL VOLUME 82.8 fL CALC (80.0-100.0); MEAN CORPUSCULAR HGB 25.1 pG CALC (26.0-32.0); MEAN CORPUSCULAR HGB CONC 30.3 g/dL CAL (32.0-36.0); MONO% 10.1 % (2-13); NEUT# 4.22 thou/uL (2.00-7.15); NEUT% 62.7 % (42-76); RED BLOOD COUNT 3.43 mill/uL (4.20-5.60); RED CELL DISTRI WIDTH 18.4 % (11.5-15.5)
[2024-05-27 05:54] LABS: BILIRUBIN, TOTAL 0.4 mg/dL (0.02-1.3); CREATININE 0.5 mg/dL (0.5-1.0); POTASSIUM 3.4 mmol/l (3.5-5.1); TOTAL PROTEIN 6.1 g/dL (6.3-8.2)
[2024-05-27 06:02] LABS: MAGNESIUM 1.1 mg/dL (1.6-2.3)
[2024-05-27 07:36] VITALS: BP 177/122
--- NOTE | 2024-05-27 07:37 | NUR ---
PT IS FOUND RESTING COMFORTABLY IN BED. PT IS A&OX4; STABLE. PT CAN MOVE ALL EXTREMTIES; GENERALIZED WEAKNESS-SBA OOB. PLAN OF CARE WAS REVIEWED WITH THE PT; NO FURTHER NEEDS/ QUESTIONS AT THIS TIME. CALL LIGHT IS WITHIN REACH; BED ALARM IS ON.
[2024-05-27] MEDS ORDERED: POTASSIUM CHLORIDE 20 MEQ/PKT POWDER PO SCH (08:00)
[2024-05-27] MEDS ORDERED: MAGNESIUM SULFATE HEPTAHYDRATE 100 ML IV SCH (08:00)
[2024-05-27] MEDS ORDERED: DIATRIZOATE MEGLUMINE & SODIUM 30 ML/BTL PO SCH (09:30)
--- NOTE | 2024-05-27 11:40 | NUR ---
PT'S CONDITION REAMINS THE SAME. PT WAS COMPLAINING OF PAIN; WILL ADMINISTER PRN. SHE IS HAVING BOWEL MOVEMENTS. CALL LIGHT IS WITHIN REACH. X1 OOB
--- NOTE | 2024-05-27 15:05 | NUR ---
PT'S CONDITION REMAINS THE SAME. PT IS RESTING COMFORTABLY. CALL LIGHT IS WITHIN REACH.
[2024-05-27 15:29] VITALS: BP 175/97
[2024-05-27] MEDS ORDERED: CIPROFLOXACN500 MG PO (15:56)
[2024-05-27] MEDS ORDERED: METRONIDAZOLE500 MG PO (15:57)
[2024-05-27] MEDS ORDERED: XANAX0.25 MG PO (15:57)
[2024-05-27] MEDS ORDERED: ALPRAZolam 0.25 MG PO SCH (16:30)
== END 2024-05-27 19:00 | disposition home health service (06) ==
LOC: ED 14:38 → ED-I 18:30 → ED 19:17 → MS2 19:18
PROVIDERS: Nurse Practitioner; Nurse Practitioner Family; ADMIT Internal Medicine; ATTEND Internal Medicine
DX: R10.84 Generalized abdominal pain (principal); N39.0 Urinary tract infection, site not specified; B96.89 Other specified bacterial agents as the cause of diseases classified elsewhere; K65.1 Peritoneal abscess; F41.9 Anxiety disorder, unspecified; K59.1 Functional diarrhea; I10 Essential (primary) hypertension; K21.9 Gastro-esophageal reflux disease without esophagitis; K44.9 Diaphragmatic hernia without obstruction or gangrene; G89.4 Chronic pain syndrome; Z90.49 Acquired absence of other specified parts of digestive tract; Z98.0 Intestinal bypass and anastomosis status
CPT/HCPCS: G0378; J0500; J0692; J0696; J1650; J1836; J2543; J2550; J3475; Q9967

== ENCOUNTER 2024-05-29 20:29 | Emergency (ER) | payer MEDICARE, OTHER ==
[~2024-05-29] VITALS: Ht 160 cm; Wt 49.0 kg
[~2024-05-29 20:29] MED LIST changes: +CIPROFLOXACN500 MG PO; +METRONIDAZOLE500 MG PO
[2024-05-29] MEDS ORDERED: DIPHENOXYLATE W/ ATROPINE 2.5 MG TAB PO ONE (21:30)
[2024-05-29] MEDS ORDERED: LOMOTIL2.5 MG PO (22:32)
[2024-05-29] MEDS ORDERED: HYDROcodone/Acetaminophen 1 COMBO TAB PO ONE (22:35)
[2024-05-29 23:09] VITALS: BP 162/78
--- NOTE | 2024-05-31 11:22 | NUR ---
Discharge follow up call completed 05/31/24. Patient states she has had a number of issues since discharge but thinks she may be on the right track now. Patient is taking prescribed medication as directed but has had significant diarrhea as a result. Patient returned to [facility] ED on Friday and was prescribed medication that seems to be helping at this time. Patient has seen her PCP once since discharge and has a second appointment on , 06/03/24. Patient is very appreciative of the care and concerns shown by [facility]. No needs or concerns are verbalized at this time.
== END 2024-05-29 23:09 | disposition home or self-care (01) ==
LOC: ED 20:29
DX: R10.9 Unspecified abdominal pain (principal); G89.29 Other chronic pain; R19.7 Diarrhea, unspecified; I10 Essential (primary) hypertension; K21.9 Gastro-esophageal reflux disease without esophagitis; K44.9 Diaphragmatic hernia without obstruction or gangrene; F41.9 Anxiety disorder, unspecified; Z98.0 Intestinal bypass and anastomosis status

== ENCOUNTER 2024-06-03 08:39 | Emergency (ER) | payer MEDICARE, OTHER ==
[2024-06-03] VITALS (12 sets, daily range): BP systolic 128–183; BP diastolic 75–96
[~2024-06-03] VITALS: Ht 160 cm; Wt 48.0 kg
[~2024-06-03 08:39] MED LIST changes: +LOMOTIL2.5 MG PO
[2024-06-03] MEDS ORDERED: traMADol HCL 50 MG/TAB PO ONE (09:05)
[2024-06-03] MEDS ORDERED: ORPHENADRINE100 MG PO (10:39)
[2024-06-03] MEDS ORDERED: MEDROL4 M1 PO (10:39)
[2024-06-03] MEDS ORDERED: CYCLOBENZAPRINE HCL 5 MG TAB PO ONE (10:40)
[2024-06-04] MEDS ORDERED: LORTAB 5/3255 MG PO (06:20)
[2024-06-04] MEDS ORDERED: CELEBREX200 MG PO (06:21)
== END 2024-06-03 11:21 | disposition home or self-care (01) ==
LOC: ED 08:39
DX: S30.0XXA Contusion of lower back and pelvis, initial encounter (principal); I10 Essential (primary) hypertension; W01.0XXA Fall on same level from slipping, tripping and stumbling without subsequent striking against object, initial encounter
CPT/HCPCS: J1100

== ENCOUNTER 2024-06-04 02:13 | Emergency (ER) | payer MEDICARE, OTHER ==
[~2024-06-04] VITALS: Ht 160 cm; Wt 50.0 kg
[~2024-06-04 02:13] MED LIST changes: +MEDROL4 M1 PO
[2024-06-04] MEDS ORDERED: HYDROmorphone HCL 2 MG/AMP IM ONE (02:50)
[2024-06-04] MEDS ORDERED: PROMETHAZINE HCL 25 MG/ML AMP IM ONE (02:50)
[2024-06-04] MEDS ORDERED: LORTAB 5/3255 MG PO (06:20)
[2024-06-04] MEDS ORDERED: CELEBREX200 MG PO (06:21)
[2024-06-04 06:48] VITALS: BP 146/80
== END 2024-06-04 06:50 | disposition home or self-care (01) ==
LOC: ED 02:13
DX: S32.039A Unspecified fracture of third lumbar vertebra, initial encounter for closed fracture (principal); S70.02XA Contusion of left hip, initial encounter; S70.01XA Contusion of right hip, initial encounter; I10 Essential (primary) hypertension; W06.XXXA Fall from bed, initial encounter; Y93.9 Activity, unspecified; Y92.003 Bedroom of unspecified non-institutional (private) residence as the place of occurrence of the external cause
CPT/HCPCS: J1171; J2550

== ENCOUNTER 2024-06-07 09:55 | Emergency (ER) | payer MEDICARE, OTHER ==
[~2024-06-07] VITALS: Ht 160 cm; Wt 50.0 kg
[2024-06-07] VITALS (16 sets, daily range): BP systolic 139–188; BP diastolic 91–136
[~2024-06-07 09:55] MED LIST changes: +CELEBREX200 MG PO
[2024-06-07] MEDS ORDERED: LISINOPRIL 5 MG/TAB PO ONE (10:05)
[2024-06-07 10:22] LABS: BASO% 0.3 % (0-3); EOS% 2.5 % (0-8); HEMATOCRIT 31.7 % (37.0-47.0); HEMOGLOBIN 9.6 g/dl (12.0-16.0); IMMATURE GRANULOCYTES 0.2 % (0.0-5.0); LYMPH% 26.1 % (15-41); MEAN CELL VOLUME 85.9 fL CALC (80.0-100.0); MEAN CORPUSCULAR HGB CONC 30.3 g/dL CAL (32.0-36.0); MONO% 8.4 % (2-13); NEUT# 4.08 thou/uL (2.00-7.15); NEUT% 62.5 % (42-76); RED BLOOD COUNT 3.69 mill/uL (4.20-5.60); RED CELL DISTRI WIDTH 21.9 % (11.5-15.5)
[2024-06-07 10:57] LABS: ALKALINE PHOSPHATASE 69 u/l (38-126); BILIRUBIN, TOTAL 0.4 mg/dL (0.02-1.3); BUN 5 mg/dL (8-23); BUN/CREATININE RATIO 9 (12-20 (CALC)); CHLORIDE 102 mmol/l (95-108); CREATININE 0.5 mg/dL (0.5-1.0); ESTIMATED GFR 99 ML/MIN (>=90 (CALC)); ETHYL ALCOHOL 0 mg/dl (0-30); POTASSIUM 3.1 mmol/l (3.5-5.1); SGOT/AST 34 u/l (9-36); SODIUM 137 mmol/l (137-146)
[2024-06-07 11:03] LABS: ALBUMIN 3.8 g/dL (3.2-5.0); ANION GAP 9 (6-22 (CALC)); CARBON DIOXIDE 29 mmol/l (22-30)
[2024-06-07] MEDS ORDERED: POTASSIUM CHLORIDE 20 MEQ/TAB PO ONE (14:15)
[2024-06-07] MEDS ORDERED: K-TAB20 MEQ PO (14:16)
== END 2024-06-07 14:57 | disposition home or self-care (01) ==
LOC: ED 09:55
PROVIDERS: Family Medicine
DX: R19.7 Diarrhea, unspecified (principal); F11.23 Opioid dependence with withdrawal; I10 Essential (primary) hypertension; K44.9 Diaphragmatic hernia without obstruction or gangrene; K21.9 Gastro-esophageal reflux disease without esophagitis; F41.9 Anxiety disorder, unspecified; Z90.49 Acquired absence of other specified parts of digestive tract

== ENCOUNTER 2024-06-08 11:03 | Emergency (ER) | payer MEDICARE, OTHER ==
[~2024-06-08] VITALS: Ht 160 cm; Wt 50.0 kg
[~2024-06-08 11:03] MED LIST changes: +K-TAB20 MEQ PO
[2024-06-08 11:10] VITALS: BP 173/133
[2024-06-08 11:15] VITALS: BP 157/89
[2024-06-08 11:30] VITALS: BP 166/95
[2024-06-08 11:42] LABS: BASO% 0.3 % (0-3); HEMATOCRIT 32.8 % (37.0-47.0); HEMOGLOBIN 9.8 g/dl (12.0-16.0); IMMATURE GRANULOCYTES 0.2 % (0.0-5.0); LYMPH% 21.9 % (15-41); MEAN CELL VOLUME 86.5 fL CALC (80.0-100.0); MEAN CORPUSCULAR HGB 25.9 pG CALC (26.0-32.0); MEAN CORPUSCULAR HGB CONC 29.9 g/dL CAL (32.0-36.0); NEUT# 4.48 thou/uL (2.00-7.15); NEUT% 67.6 % (42-76); RED BLOOD COUNT 3.79 mill/uL (4.20-5.60); RED CELL DISTRI WIDTH 22.1 % (11.5-15.5)
[2024-06-08 11:45] VITALS: BP 158/98
[2024-06-08 11:59] LABS: ETHYL ALCOHOL 0 mg/dl (0-30)
[2024-06-08 12:00] LABS: ALBUMIN 4.2 g/dL (3.2-5.0); ALKALINE PHOSPHATASE 80 u/l (38-126); ANION GAP 15 (6-22 (CALC)); BILIRUBIN, TOTAL 0.5 mg/dL (0.02-1.3); BUN 6 mg/dL (8-23); BUN/CREATININE RATIO 10 (12-20 (CALC)); CARBON DIOXIDE 24 mmol/l (22-30); CHLORIDE 103 mmol/l (95-108); CREATININE 0.5 mg/dL (0.5-1.0); ESTIMATED GFR 99 ML/MIN (>=90 (CALC)); SGOT/AST 32 u/l (9-36); SODIUM 138 mmol/l (137-146); TOTAL PROTEIN 7.7 g/dL (6.3-8.2)
[2024-06-08 12:32] LABS: POTASSIUM 3.9 mmol/l (3.5-5.1)
[2024-06-08] MEDS ORDERED: LORazepam 1 MG/TAB PO ONE (15:15)
[2024-06-08 15:16] LABS: URINE BLOOD DIPSTICK Negative (NEGATIVE); URINE GLUCOSE - DIPSTICK Negative (NEGATIVE); URINE KETONE 40 mg/dL (NEGATIVE); URINE LEUK ESTERASE Negative (NEGATIVE); URINE NITRITE - DIPSTICK Negative (Negative); URINE PH 7.5 (4.5-8.0); URINE PROTEIN - DIPSTICK Negative (NEG-TRACE); URINE SPECIFIC GRAVITY >=1.030; URINE UROBILINOGEN - DIPSTICK 0.2 E.U./dL (0.2)
[2024-06-08 15:18] LABS: URINE COLOR Yellow
[2024-06-08] MEDS ORDERED: LISINOPRIL 10 MG/TAB PO ONE (15:45)
[2024-06-08 15:49] VITALS: BP 153/93
[2024-06-08 16:00] VITALS: BP 153/93
== END 2024-06-08 16:52 ==
LOC: ED 11:03
PROVIDERS: Family Medicine
DX: T50.991A Poisoning by other drugs, medicaments and biological substances, accidental (unintentional), initial encounter (principal); F41.9 Anxiety disorder, unspecified; I10 Essential (primary) hypertension; K21.9 Gastro-esophageal reflux disease without esophagitis; K44.9 Diaphragmatic hernia without obstruction or gangrene; Z90.49 Acquired absence of other specified parts of digestive tract; Z20.822 Contact with and (suspected) exposure to COVID-19